=== PATIENT | female | born 1975 | race Caucasian/White ===

== ENCOUNTER 2019-03-07 12:55 | Emergency (ER) | payer MEDICAID, SELFPAY ==
[2019-03-07 12:57] VITALS: BP 139/78; PULSE 95; RESP 16; TEMP 36.3; O2SAT 97; BMI 42.9
[2019-03-07 14:55] LABS: Mucous, Urine 0 SEEN /hpf (<or=2+)
[2019-03-07 14:56] LABS: Color, Urine Yellow (Yellow); Glucose, Dipstick Normal (Normal); Ketone-Dipstick Negative (Negative); Leukocyte Esterase-Dipstick 100 /ul (Negative); Nitrite-Dipstick Negative (Negative); Occult Blood-Urine 10 /ul (Negative); Protein-Dipstick Negative (Negative); Specific Gravity, Urine 1.025 (1.002-1.030); Urine Bilirubin Dipstick Negative (Negative); Urine Clarity Sl. Cloudy (Clear); Urine Urobilinogen Normal (Normal)
[2019-03-07 15:05] LABS: Bacteria 4+ /hpf (None Seen); Red Blood Cells-Urine 0-5 SEEN /hpf (0-5); Squamous Epithelial Cells - UA 0-5 SEEN /hpf (5-10); White Blood Cells 10-25 SEEN /hpf (0-5)
[2019-03-07 15:07] VITALS: BP 128/79; PULSE 78; RESP 18; O2SAT 99
--- NOTE | 2019-03-07 15:24 | ED.DCSUM_ITS ---
- ER Visit Summary Date of Service: 03/07/19 Chief Complaint: Bladder prolapse History of Present Illness: The patient is a 43 F who presents for bladder prolapse. She had a prior hysterectomy. She has noted a mass pretreating from her vagina. It is reducible. Worse when she ambulates. No other symptoms. Physical Examination: Afebrile and vital signs unremarkable. Exam was chaperoned by Ellie ADHIKARI. There was no apparent prolapse, discharge, bleeding. Normal bimanual exam. Test Results: Urinalysis showed signs of infection. Emergency Department Course and Treatment: Patient is not currently having a prolapse. I believe she is appropriate for outpatient follow-up. She is trying to follow-up with her urologist. I will also refer to [facility] if she has difficulty following up. Patient was treated with Macrobid. Return for any new or worsening issues. Return if unable to reduce her bladder. Treatment Plan: As above Disposition: Discharge Impression: 1. UTI cystitis 2. Bladder prolapse This note was generated with [employer] dictation software. It may contain incorrect words, spelling, and punctuation that were not noted in review of the chart prior to signing ED Disposition - Plan for ED Patient: Referrals: Fred Encarnacion,Out of [Primary Care Provider] -
--- NOTE | 2019-03-07 15:25 | ED.DEP ---
ED Disposition - Plan for ED Patient: Instructions: Understanding Urinary Tract Infections (UTIs) Prescriptions: Nitrofurantoin Macrocrystals [Macrobid] 100 mg PO Q12 #10 cap Prescription Printed Referrals: Zaina Wick MD [STAFF PHYSICIAN] -
[2019-03-07] MEDS: Nitrofurantoin Macrocrystals 100 MG Capsule PO (15:37)
--- NOTE | 2019-03-07 15:39 | ED.RN ---
DISCHARGE INSTRUCTIONS GIVEN TO AND REVIEWED WITH PATIENT, PATIENT DENIES QUESTIONS OR CONCERNS AND VOICES UNDERSTANDING OF DISCHARGE INSTRUCTIONS. PT AMBULATES OUT OF ROOM WITHOUT DIFFICULTY.
== END 2019-03-07 15:40 | disposition home or self-care (01) ==
LOC: ED 14:18
PROVIDERS: Emergency Provider Emergency Medicine
DX: N39.0 Urinary tract infection, site not specified (principal); N81.10 Cystocele, unspecified; M19.90 Unspecified osteoarthritis, unspecified site; Z90.710 Acquired absence of both cervix and uterus; Z72.0 Tobacco use
CPT/HCPCS: 81001; 99283

== ENCOUNTER → 2019-06-07 12:18 | Outpatient (CLI) | payer MEDICAID, SELFPAY ==
--- NOTE | 2019-06-07 12:31 | BI_ITS ---
MAMMOGRAPHY - BILATERAL SCREENING REASON FOR EXAM: Female, 43 years old. Routine annual screening examination. PERTINENT HISTORY: Sister with breast cancer. Mother with breast cancer. TECHNIQUE: Digital bilateral breast wilmer (3D mammographic acquisition) in the CC and MLO projections. 2-D mediolateral oblique (MLO) and craniocaudad (CC) views of both breasts were obtained. CAD: Full Field Digital Mammography with Computer Added Detection was performed. COMPARISON: No comparison mammograms available at this time. If any prior films become available, an addendum to this report can be generated. FINDINGS: Breast Composition: There are scattered areas of fibroglandular density. There are no dominant masses or suspicious calcifications. Benign appearing bilateral axillary lymph nodes. No other significant abnormalities are identified. BI/SCREEN MAMM (CAD) W/WILMER BILAT IMPRESSION: Negative screening mammogram. Yearly followup mammogram recommended. (A) ASSESSMENT CATEGORY: BIRADS Category 2: Benign. A letter regarding these results will be sent to the patient by the facility within 30 days. Approximately 10% of breast cancers are not detected by mammography. A normal mammogram should not delay biopsy of a clinically suspicious abnormality. [id number] Electronically Signed: Jourdan Odell, at 12:47 EST , Service support ,
== END ==
PROVIDERS: Referring Provider Internal Medicine; Visit Provider Internal Medicine
DX: Z12.31 Encounter for screening mammogram for malignant neoplasm of breast (principal)
CPT/HCPCS: 77063; 77067

== ENCOUNTER 2019-09-26 11:55 | Emergency (ER) | payer SELFPAY ==
[2019-09-26 11:56] VITALS: BP 137/78; PULSE 86; RESP 16; TEMP 36.6; O2SAT 96; BMI 46.7
--- NOTE | 2019-09-26 12:07 | RAD_ITS ---
STUDY: X-RAY CHEST REASON FOR EXAM: Female, 43 years old. SORT OF BREATH, CHEST HEAVINESS, SWELLING IN HANDS AND FEET TECHNIQUE: PA and lateral views of the chest. COMPARISON: None. FINDINGS: EKG electrodes are seen. I suspect prior esophagectomy with gastric pull-through procedure. Clinical correlation is recommended. Scattered calcified granulomas. There is no demonstrated pleural abnormality. Normal size heart. Normal mediastinum and cheryl. Normal visualized pulmonary arteries. Normal visualized aortic arch and descending thoracic aorta. There are degenerative changes of the visualized thoracic spine. Normal visualized ribs, clavicles, and shoulders. There is no demonstrated abnormality of the visualized soft tissue structures of the upper abdomen. RAD/Chest PA and Lateral IMPRESSION: Findings suggestive of a gastric pull-through procedure and esophagectomy. The lungs are clear. Electronically Signed: Jourdan Odell, at 13:12 EST , Service support ,
--- NOTE | 2019-09-26 12:07 | EKG12_ITS ---
Test Reason : Blood Pressure : / mmHG Vent. Rate : 078 BPM Atrial Rate : 078 BPM P-R Int : 146 ms QRS Dur : 078 ms QT Int : 386 ms P-R-T Axes : 034 026 014 degrees QTc Int : 440 ms Normal sinus rhythm Normal ECG Confirmed by FRENCH GOODSON, CHARLETTE ([id number]), avid editor NICHOLAS BRUSH ([id number]) on 10/01/2019 2:26:04 PM Referred By: PREM Confirmed By:MITALI BRASWELL MD
--- NOTE | 2019-09-26 12:12 | ED.DCSUM_ITS ---
History of Present Illness Chief Complaint: Shortness of Breath Informant: Patient Onset: Today Context: Gradual Onset Timing: Continuous Current Severity: Moderate Maximum Severity: Moderate Narrative: The patient is a 43-year-old female with no significant medical history that recent quit smoking presents to the emergency department with chest heaviness and dyspnea. Patient notes she woke this morning and just had tightness across her chest. She states that she felt more short of breath. She denies any fevers or chills. She denies any cough. The pain does not radiate but did seem to be made worse with exertion. She also noticed that her legs were more swollen than normal. She states at the end of the day, she will have swelling, but seems like it is worse. She has no history of heart failure. There is no family history of heart disease. Prior similar symptoms: No Recent Illness/Hospitalization: No Past Medical History - Allergies and Home Meds Allergies/Adverse Reactions: Allergies Sulfa (Sulfonamide Antibiotics) Allergy (Verified 09/26/19 11:58) Clarence Primary Care Physician: [facility] Doctor,Out of [NON-STAFF] - Prior records reviewed: Yes Surgical History: noncontributory Smoking Status: Current every day smoker Review of Systems General: Denies: Chills, Fever, Sweats Eyes: Denies: Visual changes - bilaterally, Diplopia ENT: Denies: Rhinorrhea, Sore throat Cardiovascular: Reports: Chest pain. Denies: Palpitations Respiratory: Reports: Dyspnea. Denies: Cough, Dyspnea on exertion Gastrointestinal: Denies: Abdominal pain, Nausea, Vomiting, Diarrhea, Melena, Hematochezia Genitourinary: Denies: Dysuria, Hematuria, Frequency Musculoskeletal: Denies: Back pain, Extremity Pain Skin: Denies: Rash, Wounds Neurological: Denies: Headache, Weakness, Numbness Physical Exam Vital Signs/Narrative: Vital Signs Temp Pulse Resp BP Pulse Ox 09/26/19 11:56 98 F 86 16 137/78 H 96 Inital Vital Signs reviewed: Yes General: Well nourished, Well developed, No Acute Distress Head: Normocephalic, Atraumatic Eyes: Perrl, EOMI ENT: Moist mucous membranes, No rhinorrhea Neck: Supple, Nontender Cardiovascular: Regular rate, Regular rhythm, No murmurs Respiratory: No distress, CTA bilaterally, Chest nontender Abdomen: Soft, Nontender, Nondistended, Normal bowel sounds Back: Nontender, Normal Inspection Extremities: Nontender, No edema Skin: Normal color, No rash Neurological: Alert, Oriented x3, Cranial nerves II-XII grossly intact, Normal Strength, Normal Sensation Psychological: Normal affect, Normal Mood Diagnostic/Tx/Re-eval Chest X-Ray - ED: 2 View, Normal, Heart, Lungs, Mediastinum Clinical Impression(s) from Imaging Studies Chest X-Ray 09/26/19 12:07 IMPRESSION: Findings suggestive of a gastric pull-through procedure and esophagectomy. The lungs are clear. Electronically Signed: Jourdan Odell, at 13:12 EST , Service support , Abnormal Lab Results 09/26/19 09/26/19 09/26/19 12:30 12:30 12:30 WBC 8.7 RBC 4.28 Hgb 13.6 Hct 41.0 MCV 95.8 MCH 31.8 MCHC 33.2 RDW Std Deviation 42.9 RDW Coeff of Marisel 12.4 Plt Count 253 MPV 12.0 Immature Gran % (Auto) 0.500 Neut % (Auto) 52.7 Lymph % (Auto) 31.2 Knott % (Auto) 9.1 Eos % (Auto) 5.4 H Baso % (Auto) 1.1 H Absolute Neuts (auto) 4.6 Absolute Lymphs (auto) 2.72 Nucleated RBC % 0 D-Dimer Quant (PE/DVT) 0.32 Sodium 142 Potassium 4.3 Chloride 113 H Carbon Dioxide 23.0 Anion Gap 6 BUN 12 Creatinine 0.93 Estim Creat Clear Calc 65.97 Est GFR (MDRD) Af Amer 83 Est GFR (MDRD) Non-Af 69 BUN/Creatinine Ratio 12.9 Glucose 94 Calcium 8.7 Total Bilirubin 0.30 AST 20 ALT 40 Alkaline Phosphatase 97 Troponin I < 0.015 B-Natriuretic Peptide Total Protein 6.9 Albumin 3.3 Globulin 3.6 Albumin/Globulin Ratio 0.9 09/26/19 12:30 WBC RBC Hgb Hct MCV MCH MCHC RDW Std Deviation RDW Coeff of Marisel Plt Count MPV Immature Gran % (Auto) Neut % (Auto) Lymph % (Auto) Knott % (Auto) Eos % (Auto) Baso % (Auto) Absolute Neuts (auto) Absolute Lymphs (auto) Nucleated RBC % D-Dimer Quant (PE/DVT) Sodium Potassium Chloride Carbon Dioxide Anion Gap BUN Creatinine Estim Creat Clear Calc Est GFR (MDRD) Af Amer Est GFR (MDRD) Non-Af BUN/Creatinine Ratio Glucose Calcium Total Bilirubin AST ALT Alkaline Phosphatase Troponin I B-Natriuretic Peptide 63.6 Total Protein Albumin Globulin Albumin/Globulin Ratio - Rhythm Strip Rhythm Strip: Sinus Rhythm Rate: 80 Ectopy: None - Medical Decision Making The patient presents with chest tightness and shortness of breath. Her symptoms do seem more primarily respiratory. She was given a nebulized breathing treatment. Chest x-ray was obtained which shows no focal infiltrative process. There was question about esophagectomy, but the patient does have rather significant achalasia. EKG was sinus rhythm without acute ischemic change. Screening labs including cardiac enzymes and d-dimer were negative. The patient is feeling improved. At this point, I do feel that she would benefit from a burst of prednisone and an inhaler. I do not see a clear indication for antibiotics. She is comfortable with this plan of care will be discharged home. Impression 1. Bronchitis with bronchospasm ED Disposition - Plan for ED Patient: Instructions: BRONCHITIS, No Antibiotic (Adult) Prescriptions: Prednisone [Deltasone] 40 mg PO DAILY #10 tab Prescription Printed Albuterol Inhaler [Ventolin Hfa] 2 puff INHALATION Q4H PRN PRN #1 inhaler PRN Reason: Wheezing Prescription Printed Referrals: [facility] Doctor,Out of [NON-STAFF] -
[2019-09-26 12:20] VITALS: PULSE 75; RESP 18
[2019-09-26] MEDS: Ipratropium/Albuterol Sulfate 3 ML AMPUL.NEB INHALATION (12:20)
[2019-09-26 12:43] LABS: Absolute Lymphocyte Count 2.72 X10^3/uL (0.83-4.51); Absolute Neutrophil Count 4.6 X10^3/uL (2.0-7.7); Basophil% 1.1 % (0-1); Eosinophil# 0.47 X10^3/uL; Eosinophils% 5.4 % (0-5); Hemoglobin 13.6 g/dL (12.0-15.0); Lymphocyte # 2.72 X10^3/ul (4.0); Lymphocyte % 31.2 % (19-41); Mean Corp Hgb Conc 33.2 g/dL (32-36); Mean Corpuscular Hgb 31.8 pg (27.0-32.0); Mean Corpuscular Volume 95.8 fL (81-99); Monocyte# 0.79 X10^3/uL; Monocyte% 9.1 % (0-10); NRBC Flagged by Analyzer 0 % (0-5); Neutrophil % 52.7 % (47-70); Platelet Count 253 K/mm3 (150-450); RBC Distribution Width CV 12.4 % (11.6-14.6); RBC Distribution Width SD 42.9 fl (35.1-43.9); Red Blood Count 4.28 M/mm3 (4.2-5.4); White Blood Count 8.7 K/mm3 (4.4-11.0)
[2019-09-26 13:02] LABS: ALB/GLOB Ratio 0.9 RATIO (0.9-2.4); AST(SGOT) 20 U/L (15-37); Alanine Aminotransfer ALT/SGPT 40 U/L (13-56); Albumin, Serum 3.3 g/dL (3.2-5.0); Alkaline Phosphatase 97 U/L (45-117); Anion Gap 6 (5-15); BUN 12 mg/dL (7-18); BUN/Creat Ratio 12.9 RATIO (10-20); Calcium,Total 8.7 mg/dL (8.5-10.1); Chloride 113 mmol/L (98-107); Creatinine, Serum 0.93 mg/dL (0.55-1.02); EST Glomerular Filtration Rate 69 mL/min (>60); Est Glom Filt Rate - Afr Amer 83 mL/min (>60); Estimated Creatinine Clearance 65.97 ml/min; Globulin 3.6 g/dL (2.2-4.2); Glucose 94 mg/dL (74-106); Potassium 4.3 mmol/L (3.5-5.1); Protein, Total 6.9 g/dL (6.4-8.2); Sodium Level 142 mmol/L (136-145)
[2019-09-26 13:04] LABS: D-Dimer Quantitative (DVT/PE) 0.32 FEU/ug/m (0.27-0.49)
[2019-09-26 13:15] LABS: BNP,B-Type NATRIURETIC PEPTIDE 63.6 pg/mL (0-100)
[2019-09-26 13:56] VITALS: PULSE 89; RESP 18; O2SAT 97
== END 2019-09-26 13:57 | disposition home or self-care (01) ==
LOC: ED 12:55
PROVIDERS: Emergency Provider Emergency Medicine
DX: J40 Bronchitis, not specified as acute or chronic (principal); J98.01 Acute bronchospasm; Z87.891 Personal history of nicotine dependence
CPT/HCPCS: 71046; 80053; 83880; 84484; 85025; 85379; 93005; 94640; 99283; A4216

== ENCOUNTER 2021-04-12 16:27 | Emergency (ER) | payer SELFPAY ==
[2021-04-12 16:28] VITALS: BP 111/76; PULSE 95; RESP 18; TEMP 36.4; O2SAT 97; BMI 45.6
--- NOTE | 2021-04-12 17:16 | ED.VIS.LOWEX ---
HPI History of Present Illness Chief Complaint: Lower Extremity Injury Narrative Narrative: Patient presenting with nontraumatic right foot pain. She states in the arch of her right foot and into the medial aspect of the right heel. She denies any injury. Patient states that she worked last night and after work it started to hurt. She has a history of plantar fasciitis. She states that last time she had this issue this took a couple of days off and it got better on its own. She denies any direct trauma. She is ambulatory. PFSH PFSH Home Medications albuterol sulfate 2 puff INHALATION Q4H PRN PRN #1 inhaler 09/26/19 [Rx Last Taken Unknown] prednisone 40 mg PO DAILY #10 tab 09/26/19 [Rx Last Taken Unknown] Allergy/AdvReac Type Severity Reaction Status Date / Time Sulfa (Sulfonamide Allergy Hives Verified 04/12/21 16:27 Antibiotics) Social History Smoking Status: Former smoker ROS ROS ED Constitutional Constitutional ED: Denies chills or fever(s) Eyes Eyes: Denies blurry vision or diplopia ENT ENT ED: Denies rhinorrhea or sore throat Cardiovascular Cardiovascular: Denies palpitations or racing heartbeat Respiratory/Chest Respiratory/Chest: Denies cough or dyspnea Gastrointestinal Gastrointestinal: Denies abdominal pain, nausea or vomiting Genitourinary Genitourinary ED: Denies dysuria or hematuria Musculoskeletal Musculoskeletal: Reports other Details: Right foot pain Integumentary Denies Abrasions or rash Neurologic Neurologic: Denies headache(s) or paresthesias EXAM Physical Exam Const Vital Signs: 04/12/21 16:28 Temperature 97.5 F L Temperature Source Temporal Pulse Rate 95 Respiratory Rate 18 Blood Pressure 111/76 Blood Pressure Mean 87 Pulse Ox 97 Oxygen Delivery Method Room Air Positive well nourished General Appearance ED: NAD HEENT Reports moist mucous membranes normocephalic and atraumatic Resp normal respiratory effort Cardio regular rate and regular rhythm Extremity Extremity Narrative: Tenderness to palpation on right arch. There is also some pain is to palpation over the medial aspect of the right heel. No bony tenderness. Right foot neurovascular intact brisk cap refill to all 5 toes. Neuro oriented x3 Sensorium / Orientation: alert MDM MDM MDM Narrative Medical decision making narrative: Patient symptoms most consistent with plantar fasciitis and she has had this before. She is offered Naprosyn but states she will take ibuprofen at home. I counseled her that she needs a firm shoe with arch support. I do not believe patient needs an x-ray of her foot. Patient is stable for discharge at this time. Impression: 1. Plantar fasciitis Discharge Plan Triage Chief Complaint: Lower Extremity Injury ED Provider: Ion Miller Dx/Rx/DC Orders Instructions: ED Plantar Fasciitis Prescriptions: No Action prednisone 20 MG tablet 40 mg PO DAILY Qty: 10 RF: 0 albuterol sulfate 1 INHALER inhaler 2 puff inhalation Q4H PRN PRN (Reason: Wheezing) Qty: 1 RF: 0 Primary Care Provider: Care Physician,No Primary Referrals: Suzie Heredia DPM [STAFF PHYSICIAN] - As Needed Care Physician,No Primary [Primary Care Provider] - Disposition Disposition: Home, Self Care
== END 2021-04-12 17:55 | disposition home or self-care (01) ==
LOC: ED 17:41
PROVIDERS: Emergency Provider Student in an Organized Health Care Education/Training Program
DX: M72.2 Plantar fascial fibromatosis (principal); Z87.891 Personal history of nicotine dependence
CPT/HCPCS: 99282

== ENCOUNTER 2021-09-12 14:50 | Emergency (ER) | payer MEDICAID, SELFPAY ==
[2021-09-12 14:51] VITALS: BP 156/86; PULSE 96; RESP 18; TEMP 36.7; O2SAT 98; BMI 44.6
--- NOTE | 2021-09-12 15:03 | EX.ED.DYSGE1 ---
HPI History of Present Illness Chief Complaint: Abscess Informant: patient Onset/Context/Timing Onset: Days (2) Context: Gradual Onset Timing: Continuous Quality: Stinging Location: Left lower abdomen Worsened by: Movement Relieved by: Laying on right side Narrative Narrative: Patient presents with abscess to her left lower abdomen that has been getting worse for the past couple days. Patient states it began opening and draining yesterday. Patient states the drainage is purulent in nature. Patient describes her pain as a stinging sensation. Patient states it is over the left lower abdomen. Patient states it is worse whenever she moves. Patient states it is better when she lays on her right side. Patient denies any fevers or chills. Patient denies any nausea or vomiting. [facility] Medical History (Updated 09/12/21 @ 15:[address] 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 Jose Davis DO) History of hysterectomy Hx of cholecystectomy Hx of laparoscopy Social History Smoking Status: Former smoker ROS ROS ED Constitutional Constitutional ED: Denies chills or fever(s) Eyes Eyes: Denies blurry vision or change in vision ENT ENT ED: Denies rhinorrhea or sore throat Cardiovascular Cardiovascular: Denies chest pain or palpitations Respiratory/Chest Respiratory/Chest: Denies cough or dyspnea Gastrointestinal Gastrointestinal: Denies nausea or vomiting Genitourinary Genitourinary ED: Denies dysuria or hematuria Musculoskeletal Musculoskeletal: Denies back pain or neck pain Integumentary Reports abscess; Denies rash Neurologic Neurologic: Denies headache(s) or weakness Allergic/Immunologic Allergic/Immunologic ED: Denies mouth swelling or urticaria EXAM Physical Exam Const Vital Signs: 09/12/21 14:51 Temperature 98.0 F Temperature Source Temporal Pulse Rate 96 Respiratory Rate 18 Blood Pressure 156/86 H Blood Pressure Mean 109 Pulse Ox 98 Oxygen Delivery Method Room Air Positive well nourished, well developed and obese General Appearance ED: well developed Nutritional Appearance: obese HEENT Reports moist mucous membranes Neck supple and no JVD Resp normal respiratory effort and clear to auscultation bilaterally Cardio regular rate and regular rhythm GI normal to inspection, nondistended, normoactive bowel sounds Palpation: soft Neuro oriented x3, CN's II-XII intact bilaterally and no sensory deficits noted Sensorium / Orientation: alert Motor Exam: strength 5/5 throughout Psych mental status grossly normal Skin Skin Narrative: There is a open area over the left lower abdomen. There is some purulent drainage coming from the area. There is erythema and warmth over the lower abdomen. There is some mild induration around the wound. There is no fluctuance. MDM MDM MDM Narrative Medical decision making narrative: The wound was cleaned and dressed. Since the abscess is open and draining, I do not feel incision and drainage is necessary at this time. Patient was instructed to keep the wound clean. Patient was given prescription for Keflex. Patient was given her first dose here. Patient was instructed to follow-up with a primary care physician in 5 to 7 days. Patient understood and was agreeable with the plan. All questions were answered. Discharge Plan Triage Chief Complaint: Abscess ED Provider: Jose Davis Dx/Rx/DC Orders Clinical Impression: Abscess of abdominal wall Instructions: ED Abscess Antibiotic Treatment Only, ED Cellulitis Prescriptions: New cephalexin [cephalexin] 500 MG capsule 500 mg PO Q6 Qty: 40 RF: 0 No Action prednisone 20 MG tablet 40 mg PO DAILY Qty: 10 RF: 0 albuterol sulfate 1 INHALER inhaler 2 puff inhalation Q4H PRN PRN (Reason: Wheezing) Qty: 1 RF: 0 Primary Care Provider: Care Physician,No Primary Referrals: Kelly Swain MD [STAFF PHYSICIAN] - 5-7 Days Care Physician,No Primary [Primary Care Provider] - Disposition Disposition: Home, Self Care
[2021-09-12] MEDS: Cephalexin 500 MG Capsule PO (15:22)
== END 2021-09-12 23:59 | disposition home or self-care (01) ==
PROVIDERS: Emergency Provider Emergency Medicine; Visit Provider Emergency Medicine
DX: L02.211 Cutaneous abscess of abdominal wall (principal); Z68.41 Body mass index [BMI] 40.0-44.9, adult; Z87.891 Personal history of nicotine dependence; E66.9 Obesity, unspecified
CPT/HCPCS: 99282

== ENCOUNTER → 2021-12-25 13:41 | Outpatient (CLI) | payer MEDICAID, SELFPAY ==
[2021-12-25 15:20] LABS: Absolute Lymphocyte Count 1.97 X10^3/uL (0.83-4.51); Absolute Neutrophil Count 3.7 X10^3/uL (2.0-7.7); Basophil# 0.09 X10^3/uL; Basophil% 1.4 % (0-1); Eosinophil# 0.56 X10^3/uL; Eosinophils% 8.4 % (0-5); Hematocrit 43.2 % (37-47); Hemoglobin 14.1 g/dL (12.0-15.0); Lymphocyte # 1.97 X10^3/ul (0.83-4.51); Lymphocyte % 29.6 % (19-41); Mean Corp Hgb Conc 32.6 g/dL (32-36); Mean Corpuscular Volume 94.9 fL (81-99); Mean Platelet Vol. 12.1 fl (6.2-12.0); Monocyte# 0.35 X10^3/uL; Monocyte% 5.3 % (0-10); NRBC Flagged by Analyzer 0 % (0-5); Neutrophil # 3.67 X10^3/uL (2.7-7.7); Platelet Count 294 K/mm3 (150-450); RBC Distribution Width SD 42.5 fl (35.1-43.9); Red Blood Count 4.55 M/mm3 (4.2-5.4); White Blood Count 6.7 K/mm3 (4.4-11.0)
[2021-12-25 15:47] LABS: AST(SGOT) 31 U/L (15-37); Alanine Aminotransfer ALT/SGPT 51 U/L (13-56); Albumin, Serum 3.8 g/dL (3.2-5.0); Alkaline Phosphatase 104 U/L (45-117); Anion Gap 5 (5-15); BUN 13 mg/dL (7-18); Bilirubin, Direct 0.09 mg/dL (0.00-0.30); Calcium,Total 9.3 mg/dL (8.5-10.1); Chloride 107 mmol/L (98-107); Creatinine, Serum 1.18 mg/dL (0.55-1.02); EST Glomerular Filtration Rate 52 mL/min (>60); Est Glom Filt Rate - Afr Amer 63 mL/min (>60); Globulin 3.7 g/dL (2.2-4.2); Glucose 146 mg/dL (74-106); Potassium 4.2 mmol/L (3.5-5.1); Protein, Total 7.5 g/dL (6.4-8.2); Sodium Level 138 mmol/L (136-145)
[2021-12-28 10:53] LABS: HIV - WCH Non-Reactive (Nonreactive); Hepatitis B Surface Antibody Reactive; Hepatitis B Surface Antigen Non-Reactive (Nonreactive); Hepatitis C Antibody Non-Reactive (Nonreactive)
[2021-12-29 19:07] LABS: QNTFERON TB Mitogen Value > 10.00 IU/mL (.); QNTFERON TB Nil Value 0.04 IU/mL (.); QNTFERON TB1+ Ag Value 0.02 IU/mL (.); QNTFERON TB2+ Ag Value 0.02 IU/mL (.)
[2021-12-30 10:29] LABS: Hepatitis B Core Ab Total Negative (Negative); QNTIFERON TB Positive Criteria Negative (Negative)
== END ==
PROVIDERS: PCP Internal Medicine
DX: L40.0 Psoriasis vulgaris (principal); Z79.899 Other long term (current) drug therapy; M12.9 Arthropathy, unspecified
CPT/HCPCS: 36415; 80048; 80076; 85025; 86480; 86703; 86704; 86706; 86803; 87340

== ENCOUNTER → 2022-02-15 | Outpatient (CLI) | payer MEDICAID, SELFPAY ==
[2022-02-15 12:27] LABS: Vitamin D,25 Hydroxy 19.1 ng/mL
[2022-02-15 12:35] LABS: ALB/GLOB Ratio 0.9 RATIO (0.9-2.4); AST(SGOT) 32 U/L (15-37); Alanine Aminotransfer ALT/SGPT 50 U/L (13-56); Albumin, Serum 3.7 g/dL (3.2-5.0); Alkaline Phosphatase 102 U/L (45-117); Anion Gap 6 (5-15); BUN 12 mg/dL (7-18); BUN/Creat Ratio 10.4 RATIO (10-20); Calcium,Total 9.3 mg/dL (8.5-10.1); Chloride 106 mmol/L (98-107); Cholesterol 206 mg/dL (200); Creatinine, Serum 1.15 mg/dL (0.55-1.02); EST Glomerular Filtration Rate 54 mL/min (>60); Est Glom Filt Rate - Afr Amer 65 mL/min (>60); Globulin 3.9 g/dL (2.2-4.2); Glucose 111 mg/dL (74-106); High Density Lipoprotein 35 mg/dL; Potassium 4.2 mmol/L (3.5-5.1); Protein, Total 7.6 g/dL (6.4-8.2); Sodium Level 137 mmol/L (136-145); Thyroid Stim Hormone (TSH) 2.23 uIU/mL (0.358-3.74); Triglycerides 226 mg/dL; Very Low Density Lipoprotein 45 mg/dL (5-40)
== END | disposition home or self-care (01) ==
LOC: BIMLAB 09:00
PROVIDERS: PCP Internal Medicine; Referring Provider Internal Medicine; Visit Provider Internal Medicine
DX: E66.01 Morbid (severe) obesity due to excess calories (principal); Z68.43 Body mass index [BMI] 50.0-59.9, adult; Z13.6 Encounter for screening for cardiovascular disorders; E55.9 Vitamin D deficiency, unspecified
CPT/HCPCS: 36415; 80053; 80061; 82306; 84443

== ENCOUNTER 2022-02-16 12:59 | Outpatient (RCR) | payer MEDICAID, SELFPAY | END 2022-03-07 23:59 | LOC: NS 12:59 | PROVIDERS: PCP Internal Medicine; Referring Provider Internal Medicine; Visit Provider Internal Medicine | DX: Z71.3 Dietary counseling and surveillance (principal); E66.01 Morbid (severe) obesity due to excess calories; Z68.43 Body mass index [BMI] 50.0-59.9, adult | CPT/HCPCS: 97802 ==

== ENCOUNTER → 2022-02-22 | Outpatient (CLI) | payer MEDICAID, SELFPAY ==
--- NOTE | 2022-02-22 15:54 | BI_ITS ---
MAMMOGRAPHY - BILATERAL SCREENING REASON FOR EXAM: Female, 46 years old. Routine annual screening examination. PERTINENT HISTORY: Sister with breast cancer. Mother with breast cancer. TECHNIQUE: Digital bilateral breast wilmer (3D mammographic acquisition) in the CC and MLO projections. 2-D mediolateral oblique (MLO) and craniocaudad (CC) views of both breasts were obtained. CAD: Full Field Digital Mammography with Computer Added Detection was performed. COMPARISON: Comparison is made with prior study dated 06/07/2019. FINDINGS: Breast Composition: There are scattered areas of fibroglandular density. There are no dominant masses or suspicious calcifications. Stable small benign-appearing bilateral axillary lymph nodes. No other significant abnormalities are identified. There has been no significant change since the prior study. BI/SCRN MAMM (CAD)W/WILMER BILAT IMPRESSION: Stable bilateral screening mammogram. Yearly follow-up mammogram recommended. (A) ASSESSMENT CATEGORY: BIRADS Category 2: Benign. A letter regarding these results will be sent to the patient by the facility within 30 days. Approximately 10% of breast cancers are not detected by mammography. A normal mammogram should not delay biopsy of a clinically suspicious abnormality. [id number] Electronically Signed: Jourdan Odell MD at 8:32 EDT ,
== END | disposition home or self-care (01) ==
LOC: OPBI 15:53
PROVIDERS: PCP Internal Medicine; Visit Provider Internal Medicine
DX: Z12.31 Encounter for screening mammogram for malignant neoplasm of breast (principal)
CPT/HCPCS: 77063; 77067

== ENCOUNTER 2022-06-29 07:19 | Day surgery (SDC) | payer MEDICAID, SELFPAY ==
[2022-06-29] VITALS (7 sets, daily range): BP systolic 110–143; BP diastolic 68–93; PULSE 86–95; RESP 16; TEMP 36.3–36.6; O2SAT 93–98; BMI 49.6
[2022-06-29] MEDS: Lactated Ringers 1,000 ML 15 ML IV (07:52)
--- NOTE | 2022-06-29 08:29 | H&P.OPEN ---
HPI - General HPI Narrative ALEJANDRA SUMNER, is a 46 F who presents for screening colonoscopy. Patient has never had a screening colonoscopy in the past. She denies any abdominal pain or blood in the stool. No family history of colon cancer. [facility] Medical History (Updated 06/29/22 @ 08:[address] Robel Slaughter MD) Achalasia Arthritis Arthritis Environmental allergies Gallstones H/O emotional problems Hives Hx: UTI (urinary tract infection) Migraines Physical exam, pre-employment Post-menopausal Psoriasis Shortness of breath on exertion Smoker Vitamin deficiency Wears glasses Home Medications clobetasol 0.05 % topical ointment 1 applic topical QHS PRN PSORIASIS 02/04/22 [History Last Taken Unknown] ixekizumab 80 mg/mL subcutaneous auto-injector (Taltz Autoinjector) 80 mg subcut Q4W PSORIASIS 06/14/22 [History Last Taken Unknown] Allergy/AdvReac Type Severity Reaction Status Date / Time cat dander Allergy Intermediate Swelling Verified 06/29/22 07:42 cephalexin Allergy Hives Verified 06/29/22 07:42 Sulfa (Sulfonamide Allergy Hives Verified 06/29/22 07:42 Antibiotics) Family History Mother Breast cancer COPD (chronic obstructive pulmonary disease) Sister Breast cancer Brother Hypertension Diabetes Grandmother Diabetes Surgical History History of hysterectomy History of surgical procedure Hx of cholecystectomy Hx of laparoscopy Social History household members: family current occupational status: employed 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 Smoking Status: Current some day smoker tobacco type: cigarettes Electronic Cigarette Use: not used alcohol intake: current alcohol intake frequency: holidays/special occasions only substance use type: does not use do you feel safe at home: Yes Past Medical/Surgical History Planned Operation Planned Operative Procedure/s: COLONOSCOPY Previous Hospitalizations/Surgeries HX Hospitalizations: No Any Problems With Anesthesia: No You/Your Family Experience Fever (Hyperthermia) With Anes: No Cholinesterase deficiency: No Cardiovascular Hx of Irregular Heartbeat and/or Afib: No Hx Heart Attack: No Hx Congestive Heart Failure: No Hx Hypertension: No Hx Internal Defibrillator: No Hx Pacemaker: No Hx Cardiac Catheterization: No Respiratory Hx Chronic Obstructive Pulmonary Disease (COPD): No Hx Asthma: No Hx Emphysema: No Hx Sleep Apnea: No Hx Respiratory Tract Infection/Cold (presently): No Do You Snore Loudly (louder than talking or can be heard): No Do You Often Feel Tired/ Fatigued/ Sleepy Dring Daytime?: No Has Anyone Observed You Stop Breathing During Sleep?: No Result (for STOP score): Negative Smoking Status: Current some day smoker Gastrointestinal Hx Gastroesophageal Reflux: Yes Controlled With Meds: Yes Hx Ulcer: No Neurological Hx Seizures: No Hx Transient Ischemic Attacks (TIA): No Hx Head/Neck Injury: Yes Hx Headaches: No Hx Back Injury/Pain: Yes Does patient have nerve stimulator: No Blood Disorder Hx High Cholesterol: No Hx Hepatitis: No Hx Cirrhosis: No Endocrine Hx Diabetes: No Psycho/Social Hx Depression: Yes Hx Dementia: No Miscellaneous Hx Cancer: No Recent Exposure to Contagious Disease: No Allergies cat dander Allergy (Intermediate, Verified 06/29/22 07:42) Swelling cephalexin Allergy (Verified 06/29/22 07:42) Hives Sulfa (Sulfonamide Antibiotics) Allergy (Verified 06/29/22 07:42) Hives Discharge Is Pt Admitted From a Group Home, or a Jail: No After D/C, Where Do you Plan to Go: Return Home Vital Signs Vital Signs Vital Signs: 06/29/22 07:46 06/29/22 07:46 Temperature 97.6 F L Temperature Source Temporal Pulse Rate 95 Respiratory Rate 16 Respiratory Pattern Normal Blood Pressure 110/68 Blood Pressure Mean 82 Blood Pressure Source Monitor Blood Pressure Position Sitting Blood Pressure Location Left Arm Pulse Ox 98 Oxygen Delivery Method Room Air Weight Weight: 289 lb 3.944 oz Body Mass Index (BMI) 49.6 Physical Exam Const alert and oriented x3 HEENT normocephalic Eyes PERRL Resp normal respiratory effort and normal air movement Cardio regular rate and regular rhythm GI soft to palpation, non-tender and non-distended Extremity normal to inspection Assessment & Plan Assessment/Plan (1) Screen for colon cancer: PLAN: I explained endoscopy in detail to the patient. I explained the risks including but not limited to stroke or heart attack with anesthesia, perforation of the GI tract, bleeding, infection. I explained that any of these could necessitate further emergency surgery. The patient understands and all questions were answered sufficiently. The patient wishes to proceed with procedure. Robel Slaughter MD Pager: [facility] [address] [place] [address], [address] [place] [address] Office: Surgery Risks - Colonoscopy Risks Include but are not Limited To: Risks include but are not limited to: Bleeding, perforation requiring further surgery, inability to complete colonoscopy requiring barium enema.
--- NOTE | 2022-06-29 09:29 | OP.COLON_ITS ---
Patient Name: Darcy Bailey Procedure Date: 06/29/2022 8:28 AM Date of : 1975 Age: 46 Procedure: Colonoscopy Indications: Screening for colorectal malignant neoplasm Providers: Robel Slaughter MD Referring MD: Robel Slaughter MD Medicines: Monitored Anesthesia Care Patient Profile: This is a 46 year old female. Refer to note in patient chart for documentation of history and physical. Last Colonoscopy: none. The patient's first colonoscopy is today. Complications: No immediate complications. Procedure: Pre-Anesthesia Assessment: - Prior to the procedure, a History and Physical was performed, and patient medications and allergies were reviewed. The patient's tolerance of previous anesthesia was also reviewed. The risks and benefits of the procedure and the sedation options and risks were discussed with the patient. All questions were answered, and informed consent was obtained. Prior Anticoagulants: The patient has taken no previous anticoagulant or antiplatelet agents. After reviewing the risks and benefits, the patient was deemed in satisfactory condition to undergo the procedure. After I obtained informed consent, the scope was passed under direct vision. Throughout the procedure, the patient's blood pressure, pulse, and oxygen saturations were monitored continuously. The colonoscope was introduced through the anus and advanced to the cecum, identified by appendiceal orifice and ileocecal valve. The colonoscopy was performed without difficulty. The patient tolerated the procedure well. The quality of the bowel preparation was good. Scope In: 8:36:43 AM Scope Withdrawal Time 0 hours 6 minutes 11 seconds Scope Out: 8:49:54 AM Total Procedure Duration Time 0 hours 13 minutes 11 seconds Findings: The entire examined colon appeared normal on direct and retroflexion views. Impression: - The entire examined colon is normal on direct and retroflexion views. - No specimens collected. Recommendation: - Discharge patient to home. - Resume previous diet. - Continue present medications. - Repeat colonoscopy in 10 years for screening purposes. Procedure Code(s): --- Professional --- 79367, Colonoscopy, flexible; diagnostic, including collection of specimen(s) by brushing or washing, when performed (separate procedure) Diagnosis Code(s): --- Professional --- Z12.11, Encounter for screening for malignant neoplasm of colon CPT copyright 2017 [employer]. All rights reserved. The codes documented in this report are preliminary and upon hematology oncology consultant review may be revised to meet current compliance requirements. Robel Slaughter MD 06/29/2022 9:28:53 AM This report has been signed electronically. Number of Addenda: 0 Note Initiated On: 06/29/2022 8:28 AM
--- NOTE | 2022-06-29 09:30 | OP.CCLET_ITS ---
06/29/2022 Perri Dunlap Md Re : Colonoscopy procedure for Darcy Bailey Dear Germán This procedure was performed on Wednesday, June 29, 2022. My impressions and recommendations are as follows: Impressions : - The entire examined colon is normal on direct and retroflexion views. - No specimens collected. Recommendations : - Discharge patient to home. - Resume previous diet. - Continue present medications. - Repeat colonoscopy in 10 years for screening purposes. My findings are described in the full procedure note, which is enclosed. If I can be of further assistance, please feel free to contact me at Doctor phone number(s): , Work: . Sincerely, Robel Slaughter MD 06/29/2022 9:28:53 AM This report has been signed electronically.
== END 2022-06-29 09:38 | disposition home or self-care (01) ==
LOC: EN 07:20 → AC 07:21
PROVIDERS: PCP Internal Medicine; Referring Provider Internal Medicine; Visit Provider Surgery
PROC: 0DJD8ZZ Inspection of Lower Intestinal Tract, Via Natural or Artificial Opening Endoscopic (ICD-10-PCS; CPT 45378; principal; 2022-06-29 08:25)
DX: Z12.11 Encounter for screening for malignant neoplasm of colon (principal); F17.210 Nicotine dependence, cigarettes, uncomplicated; L40.9 Psoriasis, unspecified
CPT/HCPCS: 45378; J7120; J2405

== ENCOUNTER 2022-08-16 19:25 | Emergency (ER) | payer MEDICAID, SELFPAY ==
[2022-08-16 19:26] VITALS: BP 149/88; PULSE 91; RESP 18; TEMP 36.1; O2SAT 98; BMI 48.0
[2022-08-16 20:01] LABS: Bacteria 0 SEEN /hpf (None Seen); Mucous, Urine 0 SEEN /hpf (<or=2+); Red Blood Cells-Urine 0 SEEN /hpf (0-5); White Blood Cells 0 SEEN /hpf (0-5)
[2022-08-16 20:02] LABS: Color, Urine Yellow (Yellow); Glucose, Dipstick Normal (Normal); Ketone-Dipstick Negative (Negative); Leukocyte Esterase-Dipstick Negative /ul (Negative); Nitrite-Dipstick Negative (Negative); Occult Blood-Urine 10 /ul (Negative); Protein-Dipstick Negative (Negative); Urine Bilirubin Dipstick Negative (Negative); Urine Clarity Clear (Clear); Urine Urobilinogen Normal (Normal)
[2022-08-16 20:11] LABS: Internal QC Validated? YES +Cl - CLEAR BKGD; Pregnancy, Urine Negative Negative; Squamous Epithelial Cells - UA 0-5 SEEN /hpf (5-10)
[2022-08-16 21:25] VITALS: PULSE 84; RESP 18; O2SAT 96
--- NOTE | 2022-08-16 21:40 | EX.ED.DYSGE1 ---
HPI History of Present Illness Chief Complaint: Fever Narrative Narrative: 46-year-old female presents with generalized weakness for weeks. She states that she had screening blood work done by her primary care provider and it showed that her white MND was low and she is on vitamin D supplements currently. She also complains of right shoulder pain which is nontraumatic. 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 He states it hurts when she moves it. She is using Tylenol at home for pain. No paresthesias, numbness. Patient also reports that she feels generalized fatigue. She is also felt this for weeks. She has been able to get up and go to work. She wonders if maybe she needs a sleep study. She believes she snores and she might have sleep apnea. Patient denies fever, chills, body aches. She is not have nausea or vomiting. She is concerned she might have a urinary tract infection because she is having urinary symptoms. No diarrhea or constipation. PFSH PFS Medical History Achalasia Arthritis Arthritis Environmental allergies Gallstones H/O emotional problems Hives Hx: UTI (urinary tract infection) Migraines Physical exam, pre-employment Post-menopausal Psoriasis Shortness of breath on exertion Smoker Vitamin deficiency Wears glasses Home Medications clobetasol 0.05 % topical ointment 1 applic topical QHS PRN PSORIASIS 02/04/22 [History Last Taken Unknown] ixekizumab 80 mg/mL subcutaneous auto-injector (Taltz Autoinjector) 80 mg subcut Q4W PSORIASIS 06/14/22 [History Last Taken Unknown] ergocalciferol (vitamin D2) 1,250 mcg (50,000 unit) capsule 50,000 unit PO QWEEK #8 caps 07/23/22 [Rx Last Taken Unknown] naproxen 500 mg tablet (Naprosyn) 500 mg PO BID PRN pain #20 tabs 08/16/22 [Rx Last Taken Unknown] Allergy/AdvReac Type Severity Reaction Status Date / Time cat dander Allergy Intermediate Swelling Verified 07/23/22 14:09 cephalexin Allergy Hives Verified 07/23/22 14:09 Sulfa (Sulfonamide Allergy Hives Verified 07/23/22 14:09 Antibiotics) Family History Mother Breast cancer COPD (chronic obstructive pulmonary disease) Sister Breast cancer Brother Hypertension Diabetes Grandmother Diabetes Surgical History History of hysterectomy History of surgical procedure Hx of cholecystectomy Hx of laparoscopy Social History household members: family current occupational status: employed 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 Smoking Status: Current some day smoker tobacco type: cigarettes Electronic Cigarette Use: not used alcohol intake: current alcohol intake frequency: holidays/special occasions only substance use type: does not use do you feel safe at home: Yes ROS ROS ED ROS Narrative Generalized fatigue Constitutional Constitutional ED: Denies chills or fever(s) Eyes Eyes: Denies change in vision or diplopia ENT ENT ED: Denies rhinorrhea or sore throat Cardiovascular Cardiovascular: Denies chest pain or palpitations Respiratory/Chest Respiratory/Chest: Denies cough or dyspnea Gastrointestinal Gastrointestinal: Denies abdominal pain or constipation Genitourinary Genitourinary ED: Reports dysuria and urinary frequency; Denies hematuria Musculoskeletal Musculoskeletal: Reports other Details: Right shoulder pain ; Denies back pain Integumentary Denies abscess Neurologic Neurologic: Denies headache(s) or paresthesias Psychiatric Psychiatric: Denies anxiety or depression EXAM Physical Exam Const Vital Signs: 08/16/22 19:26 Temperature 97 F L Temperature Source Temporal Pulse Rate 91 Respiratory Rate 18 Blood Pressure 149/88 H Blood Pressure Mean 108 Pulse Ox 98 Oxygen Delivery Method Room Air Positive well nourished and obese Nutritional Appearance: obese HEENT Reports moist mucous membranes Eyes PERRL and EOMs intact bilaterally Chest Wall inspection of chest normal Resp normal respiratory effort and clear to auscultation bilaterally Cardio regular rate and regular rhythm GI normal to inspection, nondistended, normoactive bowel sounds Extremity Extremity Narrative: Tenderness to palpation over the right bicipital groove on the right shoulder. There is some pain elicited with abduction and flexion of the shoulder. MDM MDM MDM Narrative Medical decision making narrative: Patient presenting with shoulder pain. On exam she does have some tenderness over the bicipital groove. I do not believe she has a rotator cuff tear. I do not know that imaging is necessary and the patient does not request this. She did have concern that she possibly had a urinary tract infection but her urinalysis is negative. Unclear why she is having urinary symptoms. She does not have any abdominal pain or other GI symptoms. She states she has been generally tired for weeks and she had blood work and the only thing that showed was a vitamin D deficiency which she is being treated for. Her vital signs are stable and she is afebrile. Patient states that she works at [employer] and is tested for COVID twice a week and has not tested positive. Given that her symptoms are ongoing for weeks we did discuss possibly testing for influenza but we do not know the exact timeframe and likely would not be able to treat with Tamiflu. Overall she is well-appearing with normal vital signs I doubt this will be needed. Her lungs are clear to auscultation and she is not complaining of cough or shortness of breath. I will place her on Naprosyn. She states she can follow-up with her PCP known for physical therapy as she has done in the past for similar problem. She is given a work note for 2 days. Patient discharged home in stable condition. Impression: 1. Right shoulder sprain 2. Dysuria 3. 1 generalized fatigue Lab Data Attestation: I reviewed the patient's lab results. Labs: Laboratory Results - last 24 hr 08/16/22 19:45 Urine Color Yellow Urine Clarity Clear Urine pH 6.0 Ur Specific [place] 1.020 Urine Protein Negative Urine Glucose (UA) Normal Urine Ketones Negative Urine Occult Blood 10 H Urine Nitrite Negative Urine Bilirubin Negative Urine Urobilinogen Normal Ur Leukocyte Esterase Negative Urine RBC 0 SEEN Urine WBC 0 SEEN Ur Squamous Epith Cells 0-5 SEEN Urine Bacteria 0 SEEN Urine Mucus 0 SEEN Urine Test Negative Discharge Plan Triage Chief Complaint: Fever ED Provider: Ion Miller Dx/Rx/DC Orders Instructions: ED Shoulder Sprain, ED Weakness (Uncertain Cause) Prescriptions: New naproxen [Naprosyn] 500 mg tablet 500 mg PO BID PRN (Reason: pain) Qty: 20 0RF No Action clobetasol 0.05 % ointment 1 applic topical QHS PRN (Reason: PSORIASIS) ergocalciferol (vitamin D2) 1,250 mcg (50,000 unit) capsule 50,000 unit PO QWEEK Qty: 8 0RF Taltz Autoinjector 80 mg/mL auto-injector 80 mg subcut Q4W Label Comments: Now taking this instead of Cosentyx Primary Care Provider: Perri Dunlap Referrals: Perri Dunlap MD [Primary Care Provider] - Disposition Disposition: Home, Self Care
[2022-08-16] MEDS: Naproxen 500 MG Tablet PO (22:11)
[2022-08-16 22:13] VITALS: BP 135/86; PULSE 85; RESP 18; O2SAT 95
== END 2022-08-16 22:17 | disposition home or self-care (01) ==
PROVIDERS: Emergency Provider Student in an Organized Health Care Education/Training Program; PCP Internal Medicine; Visit Provider Student in an Organized Health Care Education/Training Program
DX: S43.401A Unspecified sprain of right shoulder joint, initial encounter (principal); R50.9 Fever, unspecified; R30.0 Dysuria; R06.02 Shortness of breath; L40.9 Psoriasis, unspecified; R53.83 Other fatigue; E55.9 Vitamin D deficiency, unspecified; F17.210 Nicotine dependence, cigarettes, uncomplicated; G43.909 Migraine, unspecified, not intractable, without status migrainosus; Z79.899 Other long term (current) drug therapy; X58.XXXA Exposure to other specified factors, initial encounter; Y92.9 Unspecified place or not applicable
CPT/HCPCS: 81001; 81025; 99283

== ENCOUNTER → 2022-08-19 | Outpatient (CLI) | payer MEDICAID, SELFPAY ==
[2022-08-19 16:47] LABS: Absolute Lymphocyte Count 2.56 X10^3/uL (0.83-4.51); Absolute Neutrophil Count 4.9 X10^3/uL (2.0-7.7); Basophil# 0.14 X10^3/uL; Basophil% 1.5 % (0-1); Eosinophils% 7.7 % (0-5); Hemoglobin 15.3 g/dL (12.0-15.0); Lymphocyte # 2.56 X10^3/ul (0.83-4.51); Mean Corpuscular Hgb 32.6 pg (27.0-32.0); Mean Corpuscular Volume 95.7 fL (81-99); Monocyte# 0.79 X10^3/uL; Monocyte% 8.6 % (0-10); NRBC Flagged by Analyzer 0 % (0-5); Neutrophil # 4.91 X10^3/uL (2.7-7.7); Neutrophil % 53.8 % (47-70); Platelet Count 266 K/mm3 (150-450); RBC Distribution Width CV 12.4 % (11.6-14.6); RBC Distribution Width SD 43.8 fl (35.1-43.9); White Blood Count 9.1 K/mm3 (4.4-11.0)
[2022-08-19 16:57] LABS: Hemoglobin A1c 5.7 % (3.8-5.6)
[2022-08-19 17:02] LABS: ALB/GLOB Ratio 0.9 RATIO (0.9-2.4); AST(SGOT) 31 U/L (15-37); Alanine Aminotransfer ALT/SGPT 54 U/L (13-56); Albumin, Serum 3.7 g/dL (3.2-5.0); Alkaline Phosphatase 104 U/L (45-117); Anion Gap 5 (5-15); BUN 14 mg/dL (7-18); BUN/Creat Ratio 14.9 RATIO (10-20); Calcium,Total 9.3 mg/dL (8.5-10.1); Chloride 108 mmol/L (98-107); Creatinine, Serum 0.94 mg/dL (0.55-1.02); EST Glomerular Filtration Rate 68 mL/min (>60); Est Glom Filt Rate - Afr Amer 82 mL/min (>60); Glucose 110 mg/dL (74-106); Potassium 4.1 mmol/L (3.5-5.1); Protein, Total 7.7 g/dL (6.4-8.2); Sodium Level 138 mmol/L (136-145)
== END | disposition home or self-care (01) ==
LOC: BIMLAB 14:42
PROVIDERS: PCP Internal Medicine; Referring Provider Internal Medicine; Visit Provider Internal Medicine
DX: R53.83 Other fatigue (principal); R73.09 Other abnormal glucose
CPT/HCPCS: 36415; 80053; 83036; 85025

== ENCOUNTER 2022-08-24 14:55 | Outpatient (RCR) | payer MEDICAID, SELFPAY | END 2022-08-24 19:00 | disposition home or self-care (01) | LOC: PT 14:55 | PROVIDERS: PCP Internal Medicine; Referring Provider Internal Medicine; Visit Provider Internal Medicine | DX: M25.511 Pain in right shoulder (principal) ==

== ENCOUNTER 2022-09-21 16:34 | Emergency (ER) | payer MEDICAID, SELFPAY ==
[2022-09-21 16:35] VITALS: BP 155/78; PULSE 78; RESP 16; TEMP 36.6; O2SAT 98; BMI 46.5
--- NOTE | 2022-09-21 17:13 | CT_ITS ---
STUDY: CT SOFT TISSUE NECK WITH CONTRAST REASON FOR EXAM: Female, 46 years old. hx achlasia, feels like food is getting stuck in throat, vomiting, additional images taken lower and at larger FOV to see distal esophagus TECHNIQUE: The patient was scanned in a multi-detector CT scanner. High resolution transaxial imaging was performed following intravenous administration of 75 ml of Isovue 370 contrast material. Sagittal and coronal images were reconstructed. Individualized dose optimization techniques were used for this CT. COMPARISON: None. pain -- reports obstruction/globus FINDINGS: Normal bilateral parotid glands. Normal bilateral bait maker spaces. Normal bilateral parapharyngeal spaces. Normal bilateral carotid spaces. Partially visualized right gastric pull through procedure. There is a food bolus partially seen in the post surgical stomach/esophagus noted in the upper chest. Normal bilateral sublingual and submandibular glands and spaces. Normal visualized nasopharynx. Normal retropharyngeal space. Normal perivertebral space. Normal visualized bilateral faucial tonsils. The visualized tongue, tongue base and oropharynx are normal. The visualized cervical lymph nodes (levels I-) are within normal size limits, and maintain normal morphology. There is no demonstrated solid or cystic mass lesion. There is no abnormal contrast enhancement. Normal epiglottis, bilateral vallecula and hypopharynx. The pre-epiglottic and paraglottic adipose spaces are normal. Normal visualized bilateral piriform sinuses, aryepiglottic folds, vocal cords, and arytenoid-cricoid articulations. Normal subglottic trachea. Normal bilateral lobes of the thyroid gland. Normal visualized pulmonary apices. Normal visualized paranasal sinuses. Normal visualized cervical spine. CT/Soft Tissue Neck WITH Contrast IMPRESSION: Partially visualized right gastric pull through procedure. There is a food bolus partially seen in the post surgical stomach/esophagus noted in the upper chest. Electronically Signed: Kostas Anderson MD at 18:35 EST ,
--- NOTE | 2022-09-21 17:14 | EX.ED.DYSGE1 ---
HPI History of Present Illness Chief Complaint: Sore Throat Informant: patient Narrative Narrative: Reports history of achalasia followed by [facility] last endoscopy 2019. She had surgery in the past. Reports since feels like something stuck in her throat. She states sometimes things will go down but mostly feels like it stuck in her throat and would come back up. She had diarrhea Tuesday resolved. She denies nausea states she is unable to keep things down. She is concerned of obstruction in her throat. Denies any pain with swallowing. Denies fevers. Prior similar symptoms: Yes PFSH PFSH Medical History Achalasia Arthritis Arthritis Environmental allergies Gallstones H/O emotional problems Hives Hx: UTI (urinary tract infection) Migraines Physical exam, pre-employment Post-menopausal Psoriasis Shortness of breath on exertion Smoker Vitamin deficiency Wears glasses Home Medications clobetasol 0.05 % topical ointment 1 applic topical QHS PRN PSORIASIS 02/04/22 [History Last Taken Unknown] ixekizumab 80 mg/mL subcutaneous auto-injector (Taltz Autoinjector) 80 mg subcut Q4W PSORIASIS 06/14/22 [History Last Taken Unknown] ergocalciferol (vitamin D2) 1,250 mcg (50,000 unit) capsule 50,000 unit PO QWEEK #8 caps 07/23/22 [Rx Last Taken Unknown] naproxen 500 mg tablet (Naprosyn) 500 mg PO BID PRN pain #20 tabs 08/16/22 [Rx Last Taken Unknown] lidocaine HCl 2 % mucosal solution (Lidocaine Viscous) 5 ml mucous membrane TID PRN pain #600 mL 09/21/22 [Rx Last Taken Unknown] Allergy/AdvReac Type Severity Reaction Status Date / Time cat dander Allergy Intermediate Swelling Verified 09/21/22 16:35 cephalexin Allergy Hives Verified 09/21/22 16:35 Sulfa (Sulfonamide Allergy Hives Verified 09/21/22 16:35 Antibiotics) Family History Mother Breast cancer COPD (chronic obstructive pulmonary disease) Sister Breast cancer Brother Hypertension Diabetes Grandmother Diabetes Surgical History History of hysterectomy History of surgical procedure Hx of cholecystectomy Hx of laparoscopy Social History household members: family current occupational status: employed 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 Smoking Status: Former smoker quit date: 08/08/21 pack-years: 18 Electronic Cigarette Use: not used alcohol intake: current alcohol intake frequency: holidays/special occasions only substance use type: does not use do you feel safe at home: Yes ROS ROS ED Constitutional Constitutional ED: Denies chills, fever(s) or sweats Eyes Eyes: Denies change in vision ENT ENT ED: Reports dysphagia; Denies sore throat Cardiovascular Cardiovascular: Denies chest pain, leg edema, palpitations or racing heartbeat Respiratory/Chest Respiratory/Chest: Denies cough, dyspnea or dyspnea on exertion Gastrointestinal Gastrointestinal: Reports vomiting; Denies abdominal pain, diarrhea or nausea Genitourinary Genitourinary ED: Denies dysuria, hematuria or urinary frequency Musculoskeletal Musculoskeletal: Denies back pain, extremity pain or neck pain Integumentary Denies rash or wounds Neurologic Neurologic: Denies headache(s), paresthesias or weakness EXAM Physical Exam Const Vital Signs: 09/21/22 16:35 09/21/22 19:52 Temperature 97.8 F Temperature Source Temporal Pulse Rate 78 74 Respiratory Rate 16 16 Blood Pressure 155/78 H 148/84 H Blood Pressure Mean 103 Pulse Ox 98 97 Oxygen Delivery Method Room Air Positive well nourished and well developed General Appearance ED: well developed and NAD HEENT Reports moist mucous membranes HEENT Narrative: White substance on tongue however would scrape off with tongue blade. There is posterior pharyngeal erythema no exudates 1+ symmetric tonsils uvula midline, airway patent. normocephalic and atraumatic Eyes PERRL, EOMs intact bilaterally and conjunctivae normal General Eye ED: Yes normal appearance of both eyes Neck no lymphadenopathy and supple General: Negative for tenderness Chest Wall Chest: Negative for tenderness Resp normal respiratory effort and normal air movement Effort and Inspection: symmetric chest movement; Negative for respiratory distress Cardio regular rate, regular rhythm and no murmurs Peripheral Pulses: pulses 2+ throughout GI normal to inspection, nondistended, normoactive bowel sounds and non-tender GI Narrative: Negative Curtis's or McBurney's tenderness. Palpation: Negative for guarding or rebound tenderness present Back/Spine no CVA tenderness and no thoracic nor lumbar tenderness Extremity normal to inspection General Extremety ED: Negative for edema or tenderness General Extremity: Negative for edema Neuro oriented x3 and no sensory deficits noted Sensorium / Orientation: awake and alert Skin no rashes or lesions noted and no wounds MDM MDM MDM Narrative Medical decision making narrative: Interventions / MDM: Differential diagnosis: Strep pharyngitis, achalasia, mass obstruction Diagnosis considered but do not suspect: N/A My EKG interpretation: N/A Imaging independently reviewed and interpreted by myself: CT soft tissue neck no mass. Upper part of the gastrum noted in the chest from surgery. Food was in the stomach. There is no obstruction. External documents reviewed: N/A Test considered but not ordered:N/A ED course: Patient reports increasing throat pain unable to keep things down. She had posterior pharyngeal erythema rapid strep negative she had labs done White count 15. Creatinine 1.27. She is treated fluids Decadron. CT soft tissue neck with no obstruction. She is more reassured. Discussed cultures pending for strep. With her history of achalasia discussed a PPI, however she has been states she was seen 3 days ago at [facility] [place] was started on a PPI from the ED. She has not picked this up. She will use this. She is able to tolerate p.o. intake on exam. There is no emesis. Rx for viscous lidocaine to help with symptom control. She will follow-up with her PCP and her GI doctor at [facility]. All questions were answered. Re-evaluation: stable Disposition discussed with patient/family/significant other: Patient and mother Case discussed with consulting clinician: N/A Lab Data Attestation: I reviewed the patient's lab results. Labs: Laboratory Results - last 24 hr 09/21/22 09/21/22 17:35 17:35 WBC 15.1 H RBC 5.09 Hgb 16.2 H Hct 49.5 H MCV 97.2 MCH 31.8 MCHC 32.7 RDW Std Deviation 43.4 RDW Coeff of Marisel 12.0 Plt Count 302 MPV 12.0 Immature Gran % (Auto) 0.700 Neut % (Auto) 72.4 H Lymph % (Auto) 12.6 L [place] % (Auto) 10.8 H Eos % (Auto) 2.6 Baso % (Auto) 0.9 Absolute Neuts (auto) 11.0 H Absolute Lymphs (auto) 1.90 Nucleated RBC % 0 Differential Comment SCANNED Diff Path Review December Sodium 139 Potassium 3.9 Chloride 105 Carbon Dioxide 26.0 Anion Gap 8 BUN 17 Creatinine 1.27 H Estim Creat Clear Calc 46.78 Est GFR (MDRD) Af Amer 58 L Est GFR (MDRD) Non-Af 48 L BUN/Creatinine Ratio 13.4 Glucose 113 H Calcium 10.1 Radiography Diagnostic Testing: Clinical Impression(s) from Imaging Studies Soft Tissue Neck CT 09/21/22 17:13 IMPRESSION: Partially visualized right gastric pull through procedure. There is a food bolus partially seen in the post surgical stomach/esophagus noted in the upper chest. Electronically Signed: Kostas Anderson MD at 18:35 EST Reading Location ID and State: [facility] / [place] , Service support , Discharge Plan Triage Chief Complaint: Sore Throat ED Provider: Merlin Finch Dx/Rx/DC Orders Clinical Impression: Pharyngitis, Achalasia of esophagus, Vomiting Instructions: ED Pharyngitis, Report Pending Prescriptions: New lidocaine HCl [Lidocaine Viscous] 2 % solution 5 ml mucous membrane TID PRN (Reason: pain) Qty: 600 0RF No Action clobetasol 0.05 % ointment 1 applic topical QHS PRN (Reason: PSORIASIS) ergocalciferol (vitamin D2) 1,250 mcg (50,000 unit) capsule 50,000 unit PO QWEEK Qty: 8 0RF naproxen [Naprosyn] 500 mg tablet 500 mg PO BID PRN (Reason: pain) Qty: 20 0RF Taltz Autoinjector 80 mg/mL auto-injector 80 mg subcut Q4W Label Comments: Now taking this instead of Cosentyx Primary Care Provider: Perri Dunlap Referrals: Perri Dunlap MD [Primary Care Provider] - 3-5 Days if not improving Activity Restrictions/Additional Instructions: CT soft issue negative. Rapid strep negative culture pending. Take your acid medicine written 3 days ago, use viscous lidocaine as needed for symptoms. You will be contacted if culture returns positive for treatment. Follow-up with your GI doctor and your PCP. Return if worsening symptoms. Disposition Disposition: Home, Self Care Discharge Date/Time: 09/21/22 19:56
[2022-09-21 17:42] LABS: Basophil# 0.13 X10^3/uL; Basophil% 0.9 % (0-1); Eosinophil# 0.39 X10^3/uL; Eosinophils% 2.6 % (0-5); Hematocrit 49.5 % (37-47); Hemoglobin 16.2 g/dL (12.0-15.0); Lymphocyte % 12.6 % (19-41); Mean Corp Hgb Conc 32.7 g/dL (32-36); Mean Corpuscular Hgb 31.8 pg (27.0-32.0); Mean Corpuscular Volume 97.2 fL (81-99); Monocyte# 1.64 X10^3/uL; Monocyte% 10.8 % (0-10); NRBC Flagged by Analyzer 0 % (0-5); Neutrophil # 10.97 X10^3/uL (2.7-7.7); Neutrophil % 72.4 % (47-70); POSITIVE DIFFERENTIAL YES; Platelet Count 302 K/mm3 (150-450); RBC Distribution Width SD 43.4 fl (35.1-43.9); Red Blood Count 5.09 M/mm3 (4.2-5.4); White Blood Count 15.1 K/mm3 (4.4-11.0)
[2022-09-21] MEDS: dexAMETHasone 10 MG/ML Vial IV (17:47)
[2022-09-21] MEDS: 0.9% Normal Saline 1,000 ML 1000 ML IV (17:47)
[2022-09-21 17:56] LABS: Differential Indicated SCAN CRITERIA MET
[2022-09-21 18:02] LABS: Anion Gap 8 (5-15); BUN 17 mg/dL (7-18); BUN/Creat Ratio 13.4 RATIO (10-20); Calcium,Total 10.1 mg/dL (8.5-10.1); Chloride 105 mmol/L (98-107); Creatinine, Serum 1.27 mg/dL (0.55-1.02); EST Glomerular Filtration Rate 48 mL/min (>60); Est Glom Filt Rate - Afr Amer 58 mL/min (>60); Estimated Creatinine Clearance 46.78 ml/min; Glucose 113 mg/dL (74-106); Potassium 3.9 mmol/L (3.5-5.1); Sodium Level 139 mmol/L (136-145)
[2022-09-21 18:09] LABS: Differential Comment SCANNED
[2022-09-21 19:52] VITALS: BP 148/84; PULSE 74; RESP 16; O2SAT 97
[2022-09-22 12:52] LABS: Pathologist Review Reviewed
== END 2022-09-21 19:56 | disposition home or self-care (01) ==
PROVIDERS: Emergency Provider Emergency Medicine; PCP Internal Medicine; Visit Provider Emergency Medicine
DX: J02.9 Acute pharyngitis, unspecified (principal); K22.0 Achalasia of cardia; L40.9 Psoriasis, unspecified; Z87.891 Personal history of nicotine dependence; R11.10 Vomiting, unspecified; Z79.52 Long term (current) use of systemic steroids; E56.9 Vitamin deficiency, unspecified; M19.90 Unspecified osteoarthritis, unspecified site; Z79.899 Other long term (current) drug therapy
CPT/HCPCS: 70491; 80048; 85025; 87880; 96361; 96374; 99283; Q9967; A4216

== ENCOUNTER → 2022-10-07 | Outpatient (CLI) | payer MEDICAID, SELFPAY ==
[2022-10-07 15:37] LABS: Absolute Lymphocyte Count 1.81 X10^3/uL (0.83-4.51); Absolute Neutrophil Count 7.3 X10^3/uL (2.0-7.7); Basophil% 0.9 % (0-1); Eosinophil# 0.43 X10^3/uL; Eosinophils% 4.1 % (0-5); Hematocrit 44.4 % (37-47); Hemoglobin 14.6 g/dL (12.0-15.0); Lymphocyte # 1.81 X10^3/ul (0.83-4.51); Lymphocyte % 17.1 % (19-41); Mean Corp Hgb Conc 32.9 g/dL (32-36); Mean Corpuscular Hgb 31.7 pg (27.0-32.0); Mean Corpuscular Volume 96.5 fL (81-99); Mean Platelet Vol. 13.7 fl (6.2-12.0); Monocyte# 0.92 X10^3/uL; Monocyte% 8.7 % (0-10); NRBC Flagged by Analyzer 0 % (0-5); Neutrophil % 68.7 % (47-70); Platelet Count 272 K/mm3 (150-450); RBC Distribution Width CV 12.4 % (11.6-14.6); RBC Distribution Width SD 43.9 fl (35.1-43.9); White Blood Count 10.6 K/mm3 (4.4-11.0)
[2022-10-07 16:14] LABS: ALB/GLOB Ratio 0.9 RATIO (0.9-2.4); AST(SGOT) 28 U/L (15-37); Alanine Aminotransfer ALT/SGPT 50 U/L (13-56); Albumin, Serum 3.5 g/dL (3.2-5.0); Alkaline Phosphatase 98 U/L (45-117); Anion Gap 6 (5-15); BUN 9 mg/dL (7-18); BUN/Creat Ratio 9.5 RATIO (10-20); Calcium,Total 9.5 mg/dL (8.5-10.1); Chloride 109 mmol/L (98-107); Creatinine, Serum 0.94 mg/dL (0.55-1.02); EST Glomerular Filtration Rate 67 mL/min (>60); Est Glom Filt Rate - Afr Amer 81 mL/min (>60); Glucose 127 mg/dL (74-106); Protein, Total 7.5 g/dL (6.4-8.2); Sodium Level 140 mmol/L (136-145)
[2022-10-07 17:40] LABS: Vitamin D,25 Hydroxy 20.3 ng/mL
[2022-10-11 12:08] LABS: Anti-Centromere B Ab <0.2 AI (0.0-0.9); Anti-Chromatin <0.2 AI (0.0-0.9); Anti-Jo <0.2 AI (0.0-0.9); Anti-Scleroderma-70 AB <0.2 AI (0.0-0.9); RNP Ab 0.2 AI (0.0-0.9); SJOGREN'S Anti-SS-A test < 0.2 AI (0.0-0.9); SJOGREN'S Anti-SS-B test < 0.2 AI (0.0-0.9); Smith Ab <0.2 AI (0.0-0.9)
[2022-10-11 18:51] LABS: ANTINUCLEAR ANTIBODIES DIRECT Negative (Negative); Anti-dsDNA Ab 1 IU/mL (0-9)
== END | disposition home or self-care (01) ==
LOC: BIMLAB 14:11
PROVIDERS: PCP Internal Medicine; Referring Provider Internal Medicine; Visit Provider Internal Medicine
DX: R53.83 Other fatigue (principal); L40.9 Psoriasis, unspecified; E55.9 Vitamin D deficiency, unspecified
CPT/HCPCS: 36415; 80053; 82306; 85025; 86038; 86225; 86235

== ENCOUNTER 2022-10-16 08:44 | Emergency (ER) | payer MEDICAID, SELFPAY ==
[2022-10-16] VITALS (7 sets, daily range): BP systolic 100–128; BP diastolic 69–88; PULSE 16–116; RESP 16–19; TEMP 36.1–36.7; O2SAT 93–96; BMI 43.9
[2022-10-16] MEDS: 0.9% Normal Saline 1,000 ML 1000 ML IV (09:14)
--- NOTE | 2022-10-16 09:21 | CT_ITS ---
EXAM: CT CHEST AND ABDOMEN WITH INTRAVENOUS CONTRAST CLINICAL INDICATION: Achalasia, large-volume hematemesis TECHNIQUE: Helically acquired images were obtained of the chest and abdomen with intravenous contrast. This CT exam was performed using one or more of the following dose reduction techniques: automated exposure control, adjustment of the mA and/or kV according to patient size, and/or use of iterative reconstruction technique. This report was created using [employer] report [employer] technology. CONTRAST: IV 100mL [id number] RADIATION DOSE: CTDIvol = 22.89 mGy, DLP = 1786.54 mGy-cm COMPARISON: CT abdomen and pelvis without contrast 06/19/2013. CT neck with contrast 09/21/2022. No prior CT chest for comparison. FINDINGS: CHEST: LUNGS AND PLEURAL SPACES: Unremarkable. No mass. No consolidation or edema. No pleural effusion or thickening. No pneumothorax. HEART: Unremarkable. Heart size is normal. No pericardial effusion. No significant coronary artery calcifications. MEDIASTINUM: Fluid-filled dilatation of the entire esophagus consistent with known achalasia. No mediastinal or hilar adenopathy. No hiatal hernia. THYROID: Unremarkable. No thyroid lesions. ABDOMEN: LIVER: Mild diffuse fatty infiltration of the liver. Homogeneous. No focal mass. GALLBLADDER AND BILE DUCTS: Unremarkable. No calcified gallstones. No gallbladder distention or wall edema. No intra- or extrahepatic biliary ductal dilation. PANCREAS: Unremarkable. No focal cystic or solid mass. SPLEEN: Unremarkable. Normal size without focal cystic or solid mass. ADRENALS: Unremarkable. No nodules. KIDNEYS AND URETERS: Unremarkable. Normal renal size and position. No hydronephrosis. STOMACH AND BOWEL: Unremarkable. No stomach or bowel distention. No focal inflammatory change. INTRAPERITONEAL SPACE: Unremarkable. No ascites or other fluid collection. No free air. CHEST and ABDOMEN: BONES/JOINTS: Unremarkable. No suspicious lytic or blastic abnormality. SOFT TISSUES: Unremarkable. No discrete abdominal wall hernia. VASCULATURE: Unremarkable. Aorta is non-dilated. No aortic dissection. No obvious central pulmonary embolism although this study was not performed with the pulmonary embolism protocol. LYMPH NODES: Unremarkable. No enlarged lymph nodes. CT/CT Chest AND Abd W/ Contrast IMPRESSION: 1. Abnormal fluid-filled dilatation of the stomach secondary to known achalasia. 2. No acute abnormality in the chest and abdomen. 3. Mild hepatic steatosis is the only new finding. No significant interval change when compared to the CT neck of 09/21/[address] abdomen and pelvis of 06/19/2013. Electronically Signed: Omer Carreon MD at 9:56 EST ,
[2022-10-16 09:30] LABS: Absolute Lymphocyte Count 2.66 X10^3/uL (0.83-4.51); Absolute Neutrophil Count 6.9 X10^3/uL (2.0-7.7); Basophil# 0.09 X10^3/uL; Basophil% 0.8 % (0-1); Eosinophil# 0.42 X10^3/uL; Eosinophils% 3.8 % (0-5); Hemoglobin 15.7 g/dL (12.0-15.0); Lymphocyte # 2.66 X10^3/ul (0.83-4.51); Lymphocyte % 24.1 % (19-41); Mean Corp Hgb Conc 33.4 g/dL (32-36); Mean Corpuscular Hgb 31.8 pg (27.0-32.0); Mean Corpuscular Volume 95.3 fL (81-99); Monocyte# 0.95 X10^3/uL; Monocyte% 8.6 % (0-10); NRBC Flagged by Analyzer 0 % (0-5); Neutrophil # 6.87 X10^3/uL (2.7-7.7); Neutrophil % 62.2 % (47-70); Platelet Count 293 K/mm3 (150-450); RBC Distribution Width CV 12.3 % (11.6-14.6); RBC Distribution Width SD 43.1 fl (35.1-43.9); Red Blood Count 4.93 M/mm3 (4.2-5.4); White Blood Count 11.1 K/mm3 (4.4-11.0)
--- NOTE | 2022-10-16 09:37 | EDS_ITS ---
HPI History of Present Illness Chief Complaint: Nausea/Vomiting Informant: patient Narrative Narrative: Patient is a 46-year-old female with history of achalasia, follows with Dr. Maryam Hobbs at [facility] (thoracic surgery). She is presenting with episode of richie mopped assist this morning. Patient states for the past month she has been having decreased ability to keep food down and she is she attributes to her achalasia. She threw up this morning and it was grossly bloody. She take a picture of it and show it to me. States is around 4 5 AM. She states that over the past week or so she had a 15 pound weight loss and is now only urinating once a day because she cannot really keep anything down. She has mild burning sensation in her chest and foreign body/globus sensation in her throat. She states sometimes if she drinks and then lays flat she can get something down. She has been trying to take her PPIs but is having hard time because of all of the vomiting. She states he has not a bowel movement a week but attributes that to decreased oral intake. Denies any acute change in her symptoms today except for the hematemesis. No other complaints at this time. Does not drink alcohol regularly. Denies any history of liver cirrhosis or esophageal varices. Does not take any NSAIDs or aspirin. Is not on any anticoagulation. [facility] Medical History Achalasia Arthritis Arthritis Environmental allergies Gallstones H/O emotional problems Hives Hx: UTI (urinary tract infection) Migraines Physical exam, pre-employment Post-menopausal Psoriasis Shortness of breath on exertion Smoker Vitamin deficiency Wears glasses Home Medications clobetasol 0.05 % topical ointment 1 applic topical QHS PRN PSORIASIS 02/04/22 [History Last Taken Unknown] ixekizumab 80 mg/mL subcutaneous auto-injector (Taltz Autoinjector) 80 mg subcut Q4W PSORIASIS 06/14/22 [History Last Taken Unknown] ergocalciferol (vitamin D2) 1,250 mcg (50,000 unit) capsule 50,000 unit PO QWEEK #8 caps 07/23/22 [Rx Last Taken Unknown] naproxen 500 mg tablet (Naprosyn) 500 mg PO BID PRN pain #20 tabs 08/16/22 [Rx Last Taken Unknown] lidocaine HCl 2 % mucosal solution (Lidocaine Viscous) 5 ml mucous membrane TID PRN pain #600 mL 09/21/22 [Rx Last Taken Unknown] ondansetron 4 mg disintegrating tablet 4 mg PO Q8H PRN nausea and vomiting #10 tabs 10/15/22 [Rx Last Taken Unknown] Allergy/AdvReac Type Severity Reaction Status Date / Time cat dander Allergy Intermediate Swelling Verified 10/16/22 08:48 cephalexin Allergy Hives Verified 10/16/22 08:48 Sulfa (Sulfonamide Allergy Hives Verified 10/16/22 08:48 Antibiotics) Family History Mother Breast cancer COPD (chronic obstructive pulmonary disease) Sister Breast cancer Brother Hypertension Diabetes Grandmother Diabetes Surgical History History of hysterectomy History of surgical procedure Hx of cholecystectomy Hx of laparoscopy Social History household members: family current occupational status: employed current occupation: works as an [employer] Smoking Status: Former smoker quit date: 08/08/21 pack-years: 18 Electronic Cigarette Use: not used alcohol intake: current alcohol intake frequency: holidays/special occasions only substance use type: does not use do you feel safe at home: Yes ROS ROS ED Constitutional Constitutional ED: Reports weight loss; Denies chills or fever(s) Eyes Eyes: Denies change in vision ENT ENT ED: Denies rhinorrhea or sore throat Cardiovascular Cardiovascular: Denies chest pain Respiratory/Chest Respiratory/Chest: Denies cough Gastrointestinal Gastrointestinal: Reports abdominal pain, nausea, vomiting and other Details: Hematemesis Musculoskeletal Musculoskeletal: Denies arthralgias or myalgias Integumentary Denies rash Psychiatric Psychiatric: Denies anxiety Hematologic/Lymphatic Hematologic/Lymphatic: Denies easy bleeding or easy bruising EXAM Physical Exam Const Vital Signs: 10/16/22 08:45 10/16/22 08:55 10/16/22 09:59 Temperature 96.9 F L 98.1 F Temperature Source Temporal Oral Pulse Rate 116 H 113 H 91 Respiratory Rate 18 18 16 Blood Pressure 128/75 H 121/88 H 100/69 Blood Pressure Mean 92 99 79 Pulse Ox 96 94 94 Oxygen Delivery Method Room Air Room Air Room Air 10/16/22 11:14 10/16/22 14:14 10/16/22 15:20 Temperature Temperature Source Pulse Rate 90 91 85 Respiratory Rate 16 19 H 17 Blood Pressure 115/75 109/78 Blood Pressure Mean 88 88 Pulse Ox 94 93 96 Oxygen Delivery Method Room Air Room Air Room Air 10/16/22 17:10 Temperature Temperature Source Pulse Rate 16 L Respiratory Rate Blood Pressure Blood Pressure Mean Pulse Ox Oxygen Delivery Method Room Air Positive well nourished and well developed General Appearance ED: well developed and NAD; Negative for pallor HEENT Reports dry mucous membranes Mouth ED: Yes dry mucous membranes Mouth: dry mucous membranes Eyes PERRL and EOMs intact bilaterally General Eye ED: Negative for pale conjunctiva Neck supple and no JVD Neck Narrative: Normal range of motion, normal phonation Chest Wall inspection of chest normal and palpation of chest normal Chest Narrative: No chest wall crepitus appreciated Resp normal respiratory effort and clear to auscultation bilaterally Cardio regular rhythm and no murmurs Rate: tachycardic GI normal to inspection, nondistended, normoactive bowel sounds and non-tender Palpation: soft; Negative for tender or guarding Back/Spine no CVA tenderness Extremity normal to inspection General Extremety ED: Negative for edema General Extremity: Negative for edema Neuro oriented x3 Sensorium / Orientation: alert Motor Exam: Negative for general weakness Psych mental status grossly normal Skin no rashes or lesions noted General Skin Exam: Negative for jaundice or pallor MDM MDM MDM Narrative Medical decision making narrative: Patient is evaluated for persistent vomiting in the setting of achalasia and now hematemesis. Patient did show me a picture of richie blood that she threw up this morning. She initially did not have any further episodes of vomiting in the emergency room. Patient is tachycardic upon arrival. Differential includes Boerhaave syndrome, Rita-Tolliver tear, acute blood loss anemia as well as dehydration and ketosis. Patient CBC initially is slightly hemoconcentrated with a hemoglobin of 15.7 and white blood cell count of 11.1. Platelets are normal at 293. Her coags are mildly elevated at 15.9 and 37.4 for her PT/PTT. Patient's CMP remarkable for mild hypokalemia of 3.3, creatinine of 1.13 which is the patient's baseline and a mild transaminitis with an AST of 44 and an ALT of 68. Her BUN to creatinine ratio was 15. Patient's lipase is normal. Urinalysis shows 15 ketones and is consistent with contamination. Patient is given a dose of IV Protonix in the emergency room. She is also given IV fluids and Zofran with improvement of her vital signs. She remains hemodynamically stable in the emergency room. CT of the Chest and abdomen obtained to look for any signs of mediastinitis or rupture and it does show changes consistent with achalasia. Case is discussed with GI on-call who feels that with her achalasia she is a bit too complicated for facility and needs thoracic surgery backup. Case discussed with cardiothoracic surgery on-call at [facility], Dr. Jacob Kwong. He does not think that acute thoracic surgery intervention is indicated but does feel that patient should be scoped and brought in to be seen by the GI team. I spoke with the medicine quarterback Dr. Kramer, who accepts the patient to the medicine service. She later does have a second episode of vomiting and it is bloody. CBC is rechecked and her hemoglobin is mildly dropped to 14.1 but she remains hemodynamically stable. She does not have further vomiting. Patient is agreeable this plan of care. Lab Data Attestation: I reviewed the patient's lab results. Labs: Laboratory Results - last 24 hr 10/16/22 10/16/22 10/16/22 09:00 09:00 09:00 WBC 11.1 H RBC 4.93 Hgb 15.7 H Hct 47.0 MCV 95.3 MCH 31.8 MCHC 33.4 RDW Std Deviation 43.1 RDW Coeff of Marisel 12.3 Plt Count 293 MPV 13.0 H Immature Gran % (Auto) 0.500 Neut % (Auto) 62.2 Lymph % (Auto) 24.1 [place] % (Auto) 8.6 Eos % (Auto) 3.8 Baso % (Auto) 0.8 Absolute Neuts (auto) 6.9 Absolute Lymphs (auto) 2.66 Nucleated RBC % 0 PT 15.4 H INR 1.3 APTT 37.4 H Sodium 140 Potassium 3.3 L Chloride 105 Carbon Dioxide 24.0 Anion Gap 11 BUN 17 Creatinine 1.13 H Estim Creat Clear Calc 52.58 Est GFR (MDRD) Af Amer 66 Est GFR (MDRD) Non-Af 54 L BUN/Creatinine Ratio 15.0 Glucose 133 H Calcium 9.9 Total Bilirubin 0.60 AST 44 H ALT 68 H Alkaline Phosphatase 108 Troponin I High Sens 5 Total Protein 8.5 H Albumin 3.8 Globulin 4.7 H Albumin/Globulin Ratio 0.8 L Lipase 113 Urine Color Urine Clarity Urine pH Ur Specific [place] Urine Protein Urine Glucose (UA) Urine Ketones Urine Occult Blood Urine Nitrite Urine Bilirubin Urine Urobilinogen Ur Leukocyte Esterase Urine RBC Urine WBC Ur Squamous Epith Cells Urine Bacteria Urine Mucus Blood Type Antibody Screen Antibody Identification 10/16/22 10/16/22 10/16/22 09:28 09:28 10:36 WBC RBC Hgb Hct MCV MCH MCHC RDW Std Deviation RDW Coeff of Marisel Plt Count MPV Immature Gran % (Auto) Neut % (Auto) Lymph % (Auto) [place] % (Auto) Eos % (Auto) Baso % (Auto) Absolute Neuts (auto) Absolute Lymphs (auto) Nucleated RBC % PT INR APTT Sodium Potassium Chloride Carbon Dioxide Anion Gap BUN Creatinine Estim Creat Clear Calc Est GFR (MDRD) Af Amer Est GFR (MDRD) Non-Af BUN/Creatinine Ratio Glucose Calcium Total Bilirubin AST ALT Alkaline Phosphatase Troponin I High Sens Total Protein Albumin Globulin Albumin/Globulin Ratio Lipase Urine Color Yellow Urine Clarity Clear Urine pH 6.5 Ur Specific [place] 1.005 Urine Protein 30 H Urine Glucose (UA) Normal Urine Ketones 15 H Urine Occult Blood Negative Urine Nitrite Negative Urine Bilirubin Negative Urine Urobilinogen 1 H Ur Leukocyte Esterase Negative Urine RBC 0 SEEN Urine WBC 0 SEEN Ur Squamous Epith Cells 10-25 SEEN Urine Bacteria 0 SEEN Urine Mucus 0 SEEN Blood Type O POSITIVE Antibody Screen TNP NEGATIVE Antibody Identification TNP 10/16/22 12:50 WBC 10.0 RBC 4.38 Hgb 14.1 Hct 42.0 MCV 95.9 MCH 32.2 H MCHC 33.6 RDW Std Deviation 43.5 RDW Coeff of Marisel 12.2 Plt Count 260 MPV 12.7 H Immature Gran % (Auto) 0.700 Neut % (Auto) 65.3 Lymph % (Auto) 22.3 [place] % (Auto) 8.4 Eos % (Auto) 2.5 Baso % (Auto) 0.8 Absolute Neuts (auto) 6.5 Absolute Lymphs (auto) 2.22 Nucleated RBC % 0 PT INR APTT Sodium Potassium Chloride Carbon Dioxide Anion Gap BUN Creatinine Estim Creat Clear Calc Est GFR (MDRD) Af Amer Est GFR (MDRD) Non-Af BUN/Creatinine Ratio Glucose Calcium Total Bilirubin AST ALT Alkaline Phosphatase Troponin I High Sens Total Protein Albumin Globulin Albumin/Globulin Ratio Lipase Urine Color Urine Clarity Urine pH Ur Specific [place] Urine Protein Urine Glucose (UA) Urine Ketones Urine Occult Blood Urine Nitrite Urine Bilirubin Urine Urobilinogen Ur Leukocyte Esterase Urine RBC Urine WBC Ur Squamous Epith Cells Urine Bacteria Urine Mucus Blood Type Antibody Screen Antibody Identification Radiography Chest X-Ray - ED: 1 View, Read by ED Physician, Read by Radiologist and No Acute Disease Diagnostic Testing: Clinical Impression(s) from Imaging Studies Chest/Abdomen CT 10/16/22 09:21 IMPRESSION: 1. Abnormal fluid-filled dilatation of the stomach secondary to known achalasia. 2. No acute abnormality in the chest and abdomen. 3. Mild hepatic steatosis is the only new finding. No significant interval change when compared to the CT neck of 09/21/[address] abdomen and pelvis of 06/19/2013. Electronically Signed: Omer Carreon MD at 9:56 EST , Chest X-Ray 10/16/22 09:40 IMPRESSION: 1. No acute findings in the chest. 2. Dilated esophagus with air-fluid level consistent with known achalasia. This is unchanged. Electronically Signed: Omer Carreon MD at 9:58 EST , Rhythm Strip Rhythm Strip: Sinus Tach Rate: 108 Ectopy: None EKG Initial EKG: Attestation: I personally reviewed and interpreted this EKG as follows: Comments: Sinus tachycardia at a rate of 108 bpm Normal axis Normal intervals Normal ST segments Discharge Plan Triage Chief Complaint: Nausea/Vomiting ED Provider: Rachelle Madera Dx/Rx/DC Orders Clinical Impression: Acute upper gastrointestinal bleeding Prescriptions: No Action clobetasol 0.05 % ointment 1 applic topical QHS PRN (Reason: PSORIASIS) ergocalciferol (vitamin D2) 1,250 mcg (50,000 unit) capsule 50,000 unit PO QWEEK Qty: 8 0RF naproxen [Naprosyn] 500 mg tablet 500 mg PO BID PRN (Reason: pain) Qty: 20 0RF lidocaine HCl [Lidocaine Viscous] 2 % solution 5 ml mucous membrane TID PRN (Reason: pain) Qty: 600 0RF Taltz Autoinjector 80 mg/mL auto-injector 80 mg subcut Q4W Label Comments: Now taking this instead of Cosentyx ondansetron 4 mg tablet,disintegrating 4 mg PO Q8H PRN (Reason: nausea and vomiting) Qty: 10 0RF Primary Care Provider: Perri Dunlap Referrals: Perri Dunlap MD [Primary Care Provider] -
--- NOTE | 2022-10-16 09:40 | RAD_ITS ---
EXAM: XR CHEST, 1 VIEW CLINICAL INDICATION: Chest pain. TECHNIQUE: Frontal view of the chest. This report was created using FaceTags report generation technology. COMPARISON: 09/26/2019. FINDINGS: LUNGS AND PLEURAL SPACES: The lungs are clear. No pneumothorax. No effusion. HEART: Unremarkable. Normal cardiac size. MEDIASTINUM: Dilated esophagus with air-fluid level consistent with known achalasia. BONES/JOINTS: Unremarkable. SOFT TISSUES: Unremarkable. RAD/Chest 1 View (Portable) IMPRESSION: 1. No acute findings in the chest. 2. Dilated esophagus with air-fluid level consistent with known achalasia. This is unchanged. Electronically Signed: Omer Carreon MD at 9:58 EST ,
[2022-10-16 09:46] LABS: ALB/GLOB Ratio 0.8 RATIO (0.9-2.4); AST(SGOT) 44 U/L (15-37); Alanine Aminotransfer ALT/SGPT 68 U/L (13-56); Albumin, Serum 3.8 g/dL (3.2-5.0); Alkaline Phosphatase 108 U/L (45-117); Anion Gap 11 (5-15); BUN 17 mg/dL (7-18); Calcium,Total 9.9 mg/dL (8.5-10.1); Chloride 105 mmol/L (98-107); Creatinine, Serum 1.13 mg/dL (0.55-1.02); EST Glomerular Filtration Rate 54 mL/min (>60); Est Glom Filt Rate - Afr Amer 66 mL/min (>60); Estimated Creatinine Clearance 52.58 ml/min; Globulin 4.7 g/dL (2.2-4.2); Glucose 133 mg/dL (74-106); Lipase 113 U/L (73-393); Potassium 3.3 mmol/L (3.5-5.1); Protein, Total 8.5 g/dL (6.4-8.2); Sodium Level 140 mmol/L (136-145); Troponin-I HS 5 pg/mL (3.0-54.0)
[2022-10-16] MEDS: Ondansetron 4 MG/2 ML Vial IV (09:51)
[2022-10-16 10:17] LABS: International Normalized Ratio 1.3; Prothrombin Time (Protime)PT. 15.4 SECONDS (11.7-14.9)
[2022-10-16 10:18] LABS: Partial Thromboplast Time 37.4 Seconds (24.1-36.2)
[2022-10-16 10:47] LABS: Bacteria 0 SEEN /hpf (None Seen); Mucous, Urine 0 SEEN /hpf (<or=2+); Red Blood Cells-Urine 0 SEEN /hpf (0-5); White Blood Cells 0 SEEN /hpf (0-5)
[2022-10-16 11:01] LABS: Color, Urine Yellow (Yellow); Glucose, Dipstick Normal (Normal); Ketone-Dipstick 15 mg/dl (Negative); Leukocyte Esterase-Dipstick Negative /ul (Negative); Nitrite-Dipstick Negative (Negative); Occult Blood-Urine Negative /ul (Negative); Protein-Dipstick 30 mg/dl (Negative); Specific Gravity, Urine 1.005 (1.002-1.030); Urine Bilirubin Dipstick Negative (Negative); Urine Clarity Clear (Clear); Urine Urobilinogen 1 mg/dl (Normal); Urine pH 6.5 (5.0 - 8.0)
[2022-10-16 11:11] LABS: Squamous Epithelial Cells - UA 10-25 SEEN /hpf (5-10)
[2022-10-16 12:59] LABS: Absolute Lymphocyte Count 2.22 X10^3/uL (0.83-4.51); Absolute Neutrophil Count 6.5 X10^3/uL (2.0-7.7); Basophil# 0.08 X10^3/uL; Basophil% 0.8 % (0-1); Eosinophil# 0.25 X10^3/uL; Eosinophils% 2.5 % (0-5); Hemoglobin 14.1 g/dL (12.0-15.0); Lymphocyte # 2.22 X10^3/ul (0.83-4.51); Lymphocyte % 22.3 % (19-41); Mean Corp Hgb Conc 33.6 g/dL (32-36); Mean Corpuscular Hgb 32.2 pg (27.0-32.0); Mean Corpuscular Volume 95.9 fL (81-99); Mean Platelet Vol. 12.7 fl (6.2-12.0); Monocyte# 0.84 X10^3/uL; Monocyte% 8.4 % (0-10); NRBC Flagged by Analyzer 0 % (0-5); Neutrophil % 65.3 % (47-70); Platelet Count 260 K/mm3 (150-450); RBC Distribution Width CV 12.2 % (11.6-14.6); RBC Distribution Width SD 43.5 fl (35.1-43.9); Red Blood Count 4.38 M/mm3 (4.2-5.4)
[2022-10-16] MEDS: 0.9% Normal Saline 1,000 ML 150 ML IV (13:27)
--- NOTE | 2022-10-16 17:27 | ED.RN ---
[facility] called. Unable to give report states that they will call back to ED.
== END 2022-10-16 17:10 | disposition short-term general hospital (02) ==
LOC: ED 09:15
PROVIDERS: Emergency Provider Emergency Medicine; PCP Internal Medicine; Visit Provider Emergency Medicine
DX: K92.2 Gastrointestinal hemorrhage, unspecified (principal); K22.0 Achalasia of cardia; K92.0 Hematemesis; Z87.891 Personal history of nicotine dependence
CPT/HCPCS: 86870; 71045; 71260; 74160; 80053; 81001; 83690; 84484; 85025; 85610; 85730; 86850; 86900; 86901; 87426; 93005; 96365; 96366; 96375; 99284; J7030; Q9967; A4216; J2405; J3490

== ENCOUNTER → 2022-11-01 | Outpatient (CLI) | payer MEDICAID, SELFPAY ==
[2022-11-01 12:19] LABS: Absolute Lymphocyte Count 1.39 X10^3/uL (0.83-4.51); Absolute Neutrophil Count 8.2 X10^3/uL (2.0-7.7); Basophil# 0.11 X10^3/uL; Eosinophil# 0.35 X10^3/uL; Eosinophils% 3.3 % (0-5); Hematocrit 41.1 % (37-47); Lymphocyte # 1.39 X10^3/ul (0.83-4.51); Mean Corp Hgb Conc 34.1 g/dL (32-36); Mean Corpuscular Hgb 32.6 pg (27.0-32.0); Mean Corpuscular Volume 95.6 fL (81-99); Mean Platelet Vol. 12.7 fl (6.2-12.0); Monocyte# 0.64 X10^3/uL; NRBC Flagged by Analyzer 0 % (0-5); Neutrophil # 8.16 X10^3/uL (2.7-7.7); Neutrophil % 76.1 % (47-70); Platelet Count 361 K/mm3 (150-450); RBC Distribution Width CV 12.7 % (11.6-14.6); RBC Distribution Width SD 44.4 fl (35.1-43.9); White Blood Count 10.7 K/mm3 (4.4-11.0)
[2022-11-01 12:58] LABS: ALB/GLOB Ratio 0.8 RATIO (0.9-2.4); AST(SGOT) 56 U/L (15-37); Alanine Aminotransfer ALT/SGPT 82 U/L (13-56); Albumin, Serum 3.4 g/dL (3.2-5.0); Alkaline Phosphatase 100 U/L (45-117); Anion Gap 6 (5-15); BUN 10 mg/dL (7-18); BUN/Creat Ratio 10.3 RATIO (10-20); Calcium,Total 9.3 mg/dL (8.5-10.1); Chloride 107 mmol/L (98-107); Creatinine, Serum 0.97 mg/dL (0.55-1.02); EST Glomerular Filtration Rate 65 mL/min (>60); Est Glom Filt Rate - Afr Amer 79 mL/min (>60); Globulin 4.4 g/dL (2.2-4.2); Glucose 134 mg/dL (74-106); Potassium 3.4 mmol/L (3.5-5.1); Protein, Total 7.8 g/dL (6.4-8.2); Sodium Level 137 mmol/L (136-145)
== END | disposition home or self-care (01) ==
LOC: BIMLAB 11:32
PROVIDERS: PCP Internal Medicine; Referring Provider Internal Medicine; Visit Provider Internal Medicine
DX: R13.10 Dysphagia, unspecified (principal)
CPT/HCPCS: 36415; 80053; 85025

== ENCOUNTER 2022-11-15 14:22 | Emergency (ER) | payer MEDICAID, SELFPAY ==
[2022-11-15 14:22] VITALS: BP 137/84; PULSE 114; RESP 18; TEMP 36.3; O2SAT 95; BMI 41.7
--- NOTE | 2022-11-15 14:55 | ED.RN ---
PT STATES SHE IS ON A LIQUID DIET DUE TO HEALTH HX PER THORACIC SURGEON.
--- NOTE | 2022-11-15 15:28 | EX.ED.DYSGE1 ---
HPI History of Present Illness Chief Complaint: Nausea/Vomiting Informant: patient and family Narrative Narrative: Patient presents with ongoing problems with nausea and vomiting. This patient has a long history of achalasia. She sees thoracic surgeon Dr. Anjel ramirez at [facility]. She had a Heller myomotomy back in 2016 but no other surgical procedures. She was admitted from approximately -22 October up in [place] for hematemesis. A scope was done at the time. She is set for another EGD in about 2 to 3 weeks. She had an upper GI toward the end of October up there. She states she has been having more problems with nausea and vomiting for the last about 2 weeks. She has lost 12 pounds. Prior to this she had lost about 30 pounds because of ongoing problems with nausea vomiting and difficulty getting foods in. She only takes liquids and does not even try solids. She is to having bowel movements but they are small. She has decreased urine output. She does not feel thirsty. She has not had fevers. She states she gets spasms in the lower esophagus but is not really having pain with this. No trouble breathing or chest pain. She has not vomited any blood this time. [facility] Medical History Achalasia Arthritis Arthritis Environmental allergies Gallstones H/O emotional problems Hives Hx: UTI (urinary tract infection) Migraines Physical exam, pre-employment Post-menopausal Psoriasis Shortness of breath on exertion Smoker Vitamin deficiency Wears glasses Home Medications ixekizumab 80 mg/mL subcutaneous auto-injector (Taltz Autoinjector) 80 mg subcut Q4W PSORIASIS 06/14/22 [History Last Taken Unknown] lidocaine HCl 2 % mucosal solution (Lidocaine Viscous) 5 ml mucous membrane TID PRN pain #600 mL 09/21/22 [Rx Last Taken Unknown] ondansetron 4 mg disintegrating tablet 4 mg PO Q8H PRN nausea and vomiting #10 tabs 10/15/22 [Rx Last Taken Unknown] omeprazole magnesium 2.5 mg oral suspension,delayed release 40 mg PO BID #30 ea 11/01/22 [Rx Last Taken Unknown] potassium chloride 40 mEq/15 mL oral liquid 40 meq (15 mL) PO ONCE #15 mL 11/01/22 [Rx Last Taken Unknown] promethazine 25 mg rectal suppository (Promethegan) 25 mg ME Q6H PRN PRN Nausea #12 ea 11/15/22 [Rx Last Taken Unknown] Allergy/AdvReac Type Severity Reaction Status Date / Time cat dander Allergy Intermediate Swelling Verified 11/15/22 14:55 cephalexin Allergy Hives Verified 11/15/22 14:55 Sulfa (Sulfonamide Allergy Hives Verified 11/15/22 14:55 Antibiotics) Family History Mother Breast cancer COPD (chronic obstructive pulmonary disease) Sister Breast cancer Brother Hypertension Diabetes Grandmother Diabetes Surgical History History of hysterectomy History of surgical procedure Hx of cholecystectomy Hx of laparoscopy Social History household members: family current occupational status: employed current occupation: works as an [employer] Smoking Status: Former smoker quit date: 08/08/21 pack-years: 18 Electronic Cigarette Use: not used alcohol intake: current alcohol intake frequency: holidays/special occasions only substance use type: does not use do you feel safe at home: Yes ROS ROS ED Constitutional Constitutional ED: Denies chills or fever(s) ENT ENT ED: Denies ear pain, rhinorrhea or sore throat Cardiovascular Cardiovascular: Denies chest pain Respiratory/Chest Respiratory/Chest: Denies cough or dyspnea Gastrointestinal Gastrointestinal: Reports nausea and vomiting; Denies abdominal pain, constipation, diarrhea or melena Genitourinary Genitourinary ED: Reports other Details: Decreased urine volume. ; Denies dysuria or urinary frequency Musculoskeletal Musculoskeletal: Denies myalgias Integumentary Denies rash Neurologic Neurologic: Denies headache(s) or weakness Endocrine Endocrinology: Denies polydipsia or polyuria Allergic/Immunologic Allergic/Immunologic ED: Denies urticaria EXAM Physical Exam Narrative Exam Narrative: Patient awake alert sitting in bed. She appears comfortable. She is nontoxic and carries on normal conversation. HEENT does show some dry mucous membranes. No sinus tenderness. Eyes show no icterus Neck shows no stridor Lungs are clear. Heart is regular but is tachycardic at about 110 likely due to dehydration. Abdomen is soft. There is really no distention. Bowel sounds are just slightly decreased but still present. I feel no masses. No rebound or guarding. She is not having tenderness including no notable epigastric tenderness. shows no suprapubic or CVA tenderness Neurologically she is awake alert and appropriate. Const Vital Signs: 11/15/22 14:22 11/15/22 16:47 Temperature 97.4 F L Temperature Source Temporal Pulse Rate 114 H 85 Respiratory Rate 18 17 Blood Pressure 137/84 H 108/70 Blood Pressure Mean 101 82 Pulse Ox 95 97 Oxygen Delivery Method Room Air Room Air MDM MDM MDM Narrative Medical decision making narrative: Patient CBC showed minimal elevation of white count hemoglobin that could be due to some mild dehydration. Platelets were normal. Electrolytes show no marked abnormalities. Minimal decrease of potassium. Due to the patient already having swallowing and nausea issues this was not replaced. She appreciated this as she has had problems with swallowing potassium before. But there is no sign of significant dehydration on her electrolytes. Liver function test showed no acute abnormalities. Lipase is negative Patient is feeling better. She is comfortable going home. She has been dealing with this for a long time. Clinically she did have some signs of dehydration. But her heart rate is down. I will write for Phenergan. She already has Zofran at home but just feels as though it does not work too well anymore. She does have omeprazole which she is grinding into a powder to take. Her insurance does not approve the liquid. I discussed writing this but she does not think it would help. She will follow-up with her cardiothoracic surgeon and community chest officer at the [facility]. We discussed reasons to return. Lab Data Attestation: I reviewed the patient's lab results. Labs: Laboratory Results - last 24 hr 11/15/22 11/15/22 15:35 15:35 WBC 11.5 H RBC 4.78 Hgb 15.3 H Hct 45.6 MCV 95.4 MCH 32.0 MCHC 33.6 RDW Std Deviation 43.2 RDW Coeff of Marisel 12.4 Plt Count 314 MPV 12.4 H Immature Gran % (Auto) 0.300 Neut % (Auto) 69.5 Lymph % (Auto) 16.7 L [place] % (Auto) 8.9 Eos % (Auto) 3.5 Baso % (Auto) 1.1 H Absolute Neuts (auto) 8.0 H Absolute Lymphs (auto) 1.92 Nucleated RBC % 0 Sodium 137 Potassium 3.4 L Chloride 102 Carbon Dioxide 26.0 Anion Gap 9 BUN 14 Creatinine 0.93 Estim Creat Clear Calc 63.19 Est GFR (MDRD) Af Amer 82 Est GFR (MDRD) Non-Af 68 BUN/Creatinine Ratio 15.1 Glucose 100 Calcium 9.9 Total Bilirubin 0.70 AST 36 ALT 47 Alkaline Phosphatase 104 Total Protein 8.4 H Albumin 3.5 Globulin 4.9 H Albumin/Globulin Ratio 0.7 L Lipase 77 EKG Initial EKG: Comments: My independent interpretation of the patient's EKG done for mild tachycardia showed a sinus rhythm with overall rate of 90. No ventricular ectopy. No acute ST elevation or depression. ME interval QRS duration and QTc are normal. Discharge Plan Triage Chief Complaint: Nausea/Vomiting ED Provider: Vivek Courtney Dx/Rx/DC Orders Clinical Impression: Achalasia, Nausea & vomiting, Dehydration, mild Instructions: ED Vomiting (Adult) Prescriptions: New promethazine [Promethegan] 25 mg suppository 25 mg ME Q6H PRN PRN (Reason: Nausea) Qty: 12 0RF No Action omeprazole magnesium 2.5 mg susp,delayed release for recon 40 mg PO BID Qty: 30 0RF potassium chloride 40 mEq/15 mL liquid 40 meq PO ONCE Qty: 15 0RF lidocaine HCl [Lidocaine Viscous] 2 % solution 5 ml mucous membrane TID PRN (Reason: pain) Qty: 600 0RF Taltz Autoinjector 80 mg/mL auto-injector 80 mg subcut Q4W Label Comments: Now taking this instead of Cosentyx ondansetron 4 mg tablet,disintegrating 4 mg PO Q8H PRN (Reason: nausea and vomiting) Qty: 10 0RF Primary Care Provider: Perri Dunlap Referrals: Perri Dunlap MD [Primary Care Provider] - 3-5 Days if not improving Activity Restrictions/Additional Instructions: Follow-up with your cardiothoracic surgeon and gastroenterology personnel up at [facility]. Disposition Disposition: Home, Self Care
[2022-11-15 15:42] LABS: Absolute Lymphocyte Count 1.92 X10^3/uL (0.83-4.51); Basophil# 0.13 X10^3/uL; Basophil% 1.1 % (0-1); Eosinophils% 3.5 % (0-5); Hematocrit 45.6 % (37-47); Hemoglobin 15.3 g/dL (12.0-15.0); Lymphocyte # 1.92 X10^3/ul (0.83-4.51); Lymphocyte % 16.7 % (19-41); Mean Corp Hgb Conc 33.6 g/dL (32-36); Mean Corpuscular Volume 95.4 fL (81-99); Mean Platelet Vol. 12.4 fl (6.2-12.0); Monocyte# 1.02 X10^3/uL; Monocyte% 8.9 % (0-10); NRBC Flagged by Analyzer 0 % (0-5); Neutrophil # 8.01 X10^3/uL (2.7-7.7); Neutrophil % 69.5 % (47-70); Platelet Count 314 K/mm3 (150-450); RBC Distribution Width CV 12.4 % (11.6-14.6); RBC Distribution Width SD 43.2 fl (35.1-43.9); Red Blood Count 4.78 M/mm3 (4.2-5.4); White Blood Count 11.5 K/mm3 (4.4-11.0)
[2022-11-15] MEDS: Ondansetron 4 MG/2 ML Vial IV (15:44)
[2022-11-15] MEDS: 0.9% Normal Saline 1,000 ML 1000 ML IV (15:44)
[2022-11-15 16:20] LABS: ALB/GLOB Ratio 0.7 RATIO (0.9-2.4); AST(SGOT) 36 U/L (15-37); Alanine Aminotransfer ALT/SGPT 47 U/L (13-56); Albumin, Serum 3.5 g/dL (3.2-5.0); Alkaline Phosphatase 104 U/L (45-117); Anion Gap 9 (5-15); BUN 14 mg/dL (7-18); BUN/Creat Ratio 15.1 RATIO (10-20); Calcium,Total 9.9 mg/dL (8.5-10.1); Chloride 102 mmol/L (98-107); Creatinine, Serum 0.93 mg/dL (0.55-1.02); EST Glomerular Filtration Rate 68 mL/min (>60); Est Glom Filt Rate - Afr Amer 82 mL/min (>60); Estimated Creatinine Clearance 63.19 ml/min; Globulin 4.9 g/dL (2.2-4.2); Glucose 100 mg/dL (74-106); Lipase 77 U/L (73-393); Potassium 3.4 mmol/L (3.5-5.1); Protein, Total 8.4 g/dL (6.4-8.2); Sodium Level 137 mmol/L (136-145)
[2022-11-15 16:47] VITALS: BP 108/70; PULSE 85; RESP 17; O2SAT 97
[2022-11-15 17:41] VITALS: BP 104/69; PULSE 81; RESP 18; O2SAT 98
== END 2022-11-15 17:45 | disposition home or self-care (01) ==
PROVIDERS: Emergency Provider Emergency Medicine; PCP Internal Medicine; Visit Provider Emergency Medicine
DX: K22.0 Achalasia of cardia (principal); E86.0 Dehydration; Z87.891 Personal history of nicotine dependence; L40.9 Psoriasis, unspecified; R11.2 Nausea with vomiting, unspecified; Z79.899 Other long term (current) drug therapy; Z90.49 Acquired absence of other specified parts of digestive tract; Z90.710 Acquired absence of both cervix and uterus
CPT/HCPCS: 80053; 83690; 85025; 93005; 96361; 96374; 96375; 99283; J7030; A4216; J2405; J3490

== ENCOUNTER → 2023-01-10 | Outpatient (CLI) | payer MEDICAID, SELFPAY ==
[2023-01-10 15:19] LABS: Absolute Lymphocyte Count 2.43 X10^3/uL (0.83-4.51); Absolute Neutrophil Count 7.1 X10^3/uL (2.0-7.7); Basophil% 0.9 % (0-1); Eosinophil# 0.35 X10^3/uL; Eosinophils% 3.2 % (0-5); Hematocrit 42.6 % (37-47); Hemoglobin 13.6 g/dL (12.0-15.0); Lymphocyte # 2.43 X10^3/ul (0.83-4.51); Mean Corp Hgb Conc 31.9 g/dL (32-36); Mean Corpuscular Hgb 30.8 pg (27.0-32.0); Mean Corpuscular Volume 96.6 fL (81-99); Monocyte# 1.07 X10^3/uL; Monocyte% 9.7 % (0-10); NRBC Flagged by Analyzer 0 % (0-5); Neutrophil # 7.05 X10^3/uL (2.7-7.7); Neutrophil % 63.8 % (47-70); Platelet Count 311 K/mm3 (150-450); RBC Distribution Width CV 12.9 % (11.6-14.6); RBC Distribution Width SD 46.4 fl (35.1-43.9); Red Blood Count 4.41 M/mm3 (4.2-5.4)
[2023-01-10 15:47] LABS: Hemoglobin A1c 5.4 % (3.8-5.6)
[2023-01-10 15:54] LABS: Vitamin D,25 Hydroxy 26.8 ng/mL
[2023-01-10 15:58] LABS: ALB/GLOB Ratio 0.8 RATIO (0.9-2.4); AST(SGOT) 29 U/L (15-37); Alanine Aminotransfer ALT/SGPT 33 U/L (13-56); Albumin, Serum 3.6 g/dL (3.2-5.0); Alkaline Phosphatase 100 U/L (45-117); Anion Gap 4 (5-15); BUN 11 mg/dL (7-18); BUN/Creat Ratio 10.8 RATIO (10-20); Calcium,Total 9.7 mg/dL (8.5-10.1); Chloride 108 mmol/L (98-107); Creatinine, Serum 1.02 mg/dL (0.55-1.02); EST Glomerular Filtration Rate 61 mL/min (>60); Est Glom Filt Rate - Afr Amer 74 mL/min (>60); Globulin 4.4 g/dL (2.2-4.2); Glucose 92 mg/dL (74-106); Potassium 4.3 mmol/L (3.5-5.1); Sodium Level 138 mmol/L (136-145)
== END | disposition home or self-care (01) ==
PROVIDERS: PCP Internal Medicine; Visit Provider Internal Medicine
DX: K22.0 Achalasia of cardia (principal); R13.10 Dysphagia, unspecified; E55.9 Vitamin D deficiency, unspecified; R73.03 Prediabetes
CPT/HCPCS: 36415; 80053; 82306; 83036; 85025

== ENCOUNTER → 2023-02-02 | Outpatient (CLI) | payer MEDICAID, SELFPAY ==
[2023-02-04 19:07] LABS: Hepatitis B Core Ab Total Negative (Negative); QNTFERON TB Mitogen Value > 10.00 IU/mL (.); QNTFERON TB Nil Value 0 IU/mL (.); QNTFERON TB1+ Ag Value 0.01 IU/mL (.); QNTFERON TB2+ Ag Value 0.01 IU/mL (.); QNTIFERON TB Positive Criteria Negative (Negative)
== END | disposition home or self-care (01) ==
LOC: MTLAB 14:38
PROVIDERS: PCP Internal Medicine; Referring Provider Physician Assistant; Visit Provider Physician Assistant
DX: L40.0 Psoriasis vulgaris (principal); Z79.899 Other long term (current) drug therapy
CPT/HCPCS: 36415; 86480; 86704

== ENCOUNTER → 2023-03-03 | Outpatient (CLI) | payer MEDICAID, SELFPAY ==
--- NOTE | 2023-03-03 12:04 | BI_ITS ---
MAMMOGRAPHY - BILATERAL SCREENING REASON FOR EXAM: Female, 47 years old. Routine annual screening examination. PERTINENT HISTORY: Sister with breast cancer. Mother with breast cancer. TECHNIQUE: Digital bilateral breast wilmer (3D mammographic acquisition) in the CC and MLO projections. 2-D mediolateral oblique (MLO) and craniocaudad (CC) views of both breasts were obtained. CAD: Full Field Digital Mammography with Computer Added Detection was performed. COMPARISON: Comparison is made with prior study dated February 22, 2022 and June 07, 2019. FINDINGS: Breast Composition: The breasts are almost entirely fatty. There are no dominant masses or suspicious calcifications. Stable small benign appearing bilateral axillary lymph nodes. No other significant abnormalities are identified. There has been no significant change since the prior study. BI/SCRN MAMM (CAD)W/WILMER BILAT IMPRESSION: Stable bilateral screening mammogram. Yearly follow-up mammogram recommended. (A) ASSESSMENT CATEGORY: BIRADS Category 2: Benign. A letter regarding these results will be sent to the patient by the facility within 30 days. Approximately 10% of breast cancers are not detected by mammography. A normal mammogram should not delay biopsy of a clinically suspicious abnormality. [id number] Electronically Signed: Jourdan Odell MD at 12:41 EDT ,
== END | disposition home or self-care (01) ==
LOC: OPBI 12:03
PROVIDERS: PCP Internal Medicine; Referring Provider Internal Medicine; Visit Provider Internal Medicine
DX: Z12.31 Encounter for screening mammogram for malignant neoplasm of breast (principal); Z80.3 Family history of malignant neoplasm of breast
CPT/HCPCS: 77063; 77067

== ENCOUNTER 2023-03-06 18:33 | Observation (INO) | payer MEDICAID, SELFPAY ==
[2023-03-06 18:34] VITALS: BP 128/88; PULSE 117; RESP 16; TEMP 36.4; O2SAT 96; BMI 39.2
--- NOTE | 2023-03-06 18:39 | EX.ED.GENINJ ---
HPI History of Present Illness Chief Complaint: Nausea/Vomiting PFSH PFSH Medical History Achalasia Anxiety and depression Arthritis Environmental allergies Gallstones Migraines Post-menopausal Psoriasis Smoker Vitamin deficiency Wears glasses Home Medications ixekizumab 80 mg/mL subcutaneous auto-injector (Taltz Autoinjector) 80 mg subcut Q4W PSORIASIS 06/14/22 [History Last Taken Unknown] ondansetron 4 mg disintegrating tablet 4 mg PO Q8H PRN nausea and vomiting #10 tabs 10/15/22 [Rx Last Taken Unknown] diclofenac sodium 1 % topical gel 2 g topical DAILY #100 grams 01/10/23 [Rx Last Taken Unknown] omeprazole magnesium 2.5 mg oral suspension,delayed release 40 mg PO BID PRN 01/10/23 [History Last Taken Unknown] Allergy/AdvReac Type Severity Reaction Status Date / Time cat dander Allergy Intermediate Swelling Verified 03/06/23 18:34 cephalexin Allergy Hives Verified 03/06/23 18:34 Sulfa (Sulfonamide Allergy Hives Verified 03/06/23 18:34 Antibiotics) Family History Mother Breast cancer COPD (chronic obstructive pulmonary disease) Sister Breast cancer Brother Hypertension Diabetes Grandmother Diabetes Surgical History History of hysterectomy History of surgical procedure Hx of cholecystectomy Hx of laparoscopy Social History household members: family current occupational status: employed 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 occupation: works as an [employer]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[employer] Smoking Status: Former smoker quit date: 08/08/21 pack-years: 18 Electronic Cigarette Use: not used alcohol intake: current alcohol intake frequency: holidays/special occasions only substance use type: does not use do you feel safe at home: Yes EXAM Physical Exam Const Vital Signs: 03/06/23 18:34 Temperature 97.6 F L Temperature Source Temporal Pulse Rate 117 H Respiratory Rate 16 Blood Pressure 128/88 H Blood Pressure Mean 101 Pulse Ox 96 Oxygen Delivery Method Room Air MDM MDM MDM Narrative Medical decision making narrative: HISTORY OF PRESENT ILLNESS: 47-year-old female here with nausea vomiting dehydration. She states she has history of end-stage achalasia. She states she has had more than 6 episodes of nonbloody nonbilious vomitus today. Denies any abdominal pain. Think she may be dehydrated. Does note some chest discomfort as well. Denies any richie chest pain. Denies any shortness of breath. Denies any bleeding diathesis. The patient denies recent surgery in the last 4 weeks or immobilization in the last 3 days, denies previous diagnosis of DVT or PE, hemoptysis, unilateral leg swelling or malignancy with treatment the last 6 months. No estrogen use noted. Patient denies sudden onset of pain, no tearing sensation, no migratory symptoms, no new numbness, weakness or loss of sensation. Patient denies family history or personal history of Marfan syndrome or Clayton-Danlos. REVIEW OF SYSTEMS: Pertinent positives: Nausea vomiting, chest discomfort Pertinent negatives: Syncope, focal weakness, abdominal pain PHYSICAL EXAM: Nursing triage notes reviewed, Vital signs reviewed Constitutional: please see mdm HENT: MMM Eyes: Pupils equal round and reactive to light, Extraocular muscles intact Neck: No stridor, no JVD, full neck ROM Lungs: Clear to auscultation, No wheezing or rales. No increased work of breathing, no conversational dyspnea, no accessory muscle use, no nasal flaring. No respiratory distress noted Heart: Regular rate and rhythm, No murmurs, No rubs and No gallops, 2+ distal pulses (radial, femoral, posterior tibial) in all extremities Abdomen: Soft, there is no tenderness, rigidity, rebound or guarding, no obvious peritoneal signs, no palpable pulsatile abdominal masses, no auscultated abdominal bruit : No CVAT Extremities: No edema Neuro: No focal neurological deficits, cranial nerves II through XII intact, 5/5 strength in all extremities. Intact sensation to light touch in all extremities, 2+ reflexes bilateral patella tendons. Normal gait. No ataxia. Skin: No rash or lesions noted MEDICAL DECISION MAKING: Chief Complaint: Nausea vomiting, chest discomfort External records reviewed: CT scan of the chest and abdomen from 2022 shows abnormally fluid-filled dilatation of the stomach, no acute abnormality chest or abdomen mild to pack steatosis Factors affecting care: Achalasia Social determinants of health: Former smoker History obtained from others: The patient's mother Consults: Internal medicine ALL IMAGES (IF OBTAINED) HAVE BEEN PERSONALLY REVIEWED AND INTERPRETED BY MYSELF. EKG with sinus tachycardia, normal axis, no intervals, no STEMI. MDM Narrative: Patient was initially tachycardic (rate of 105) otherwise hemodynamically stable, afebrile and nontoxic-appearing. Abdominal exam I considered the following differential diagnosis: AAA, small bowel obstruction, abdominal perforation, appendicitis, pancreatitis, hepatobiliary pathology (acute cholecystitis), mesenteric ischemia, abnormalities such as ovarian pathology, PID. ACS, arrhythmia, anemia Patient abdominal exam was benign not consistent with acute surgical process. There are no peritoneal signs. I obtained a broad lab and imaging work-up to further elucidate etiology the patient's complaints. I gave 1 L normal saline, Zofran and Pepcid for symptomatic relief. Labs remarkable for leukocytosis suggestive of systemic inflammation likely secondary to vomiting. There is no significant acute kidney injury, e electrolyte abnormalities noted. No evidence of pancreatitis, hepatobiliary pathology or ACS. I suspect patient's symptoms are secondary to achalasia causing vomiting. P.o. challenge was initiated. Patient was unable to tolerate p.o. x2. Given the patient inability tolerate p.o. initial tachycardia concern for ongoing nausea vomiting and dehydration she was admitted to the hospital. Discussed with Dr. Fontenot. The patient and/or family, caregivers express understanding. The patient and/or family, caregivers agrees with the plan. Shared decision making: I will have a discussion with the patient and or visitors regarding risk/benefits of further testing or admission. They will be made aware of of the risk/benefits inherent in this decision they will be given the opportunity to voice understanding. Total critical care time today provided was at least 0 minutes. This excludes separately billable procedures. Critical care time (if documented) is secondary to the patient having high probability of clinically significant/life threatening deterioration in the patient's condition which required my urgent intervention. Lab Data Attestation: I reviewed the patient's lab results. Lab results narrative: CBC with leukocytosis suggestive of systemic summation, no significant anemia however there is hemoconcentration suggestive of dehydration, there is no thrombocytopenia BMP without significant electrolyte abnormalities, there is no anion gap to suggest endorgan hypoperfusion, there is no significant acute kidney injury there is some renal insufficiency noted likely secondary to dehydration from nausea vomiting LFTs show no evidence of hepatobiliary pathology. Troponin is negative, no evidence of myocardial ischemia Lipase is wnl indicating no pancreatic inflammation. Urine test is negative Labs: Laboratory Results - last 24 hr 03/06/23 19:07 WBC 12.2 H RBC 5.20 Hgb 16.3 H Hct 48.8 H MCV 93.8 MCH 31.3 MCHC 33.4 RDW Std Deviation 44.0 H RDW Coeff of Marisel 12.9 Plt Count 290 MPV 12.3 H Immature Gran % (Auto) 0.600 Neut % (Auto) 68.4 Lymph % (Auto) 18.4 L [place] % (Auto) 9.5 Eos % (Auto) 2.3 Baso % (Auto) 0.8 Absolute Neuts (auto) 8.3 H Absolute Lymphs (auto) 2.25 Nucleated RBC % 0 Sodium 139 Potassium 3.7 Chloride 107 Carbon Dioxide 23.0 Anion Gap 9 BUN 14 Creatinine 1.16 H Estim Creat Clear Calc 50.66 Est GFR (MDRD) Af Amer 64 Est GFR (MDRD) Non-Af 53 L BUN/Creatinine Ratio 12.1 Glucose 111 H Calcium 9.8 Total Bilirubin 0.60 Direct Bilirubin 0.22 AST 27 ALT 44 Alkaline Phosphatase 123 H Troponin I High Sens 6 Total Protein 8.5 H Albumin 3.8 Globulin 4.7 H Lipase 22 Serum , Qual NEGATIVE Discharge Plan Triage Chief Complaint: Nausea/Vomiting ED Provider: Jose Espinoza Dx/Rx/DC Orders Clinical Impression: Achalasia, Vomiting Prescriptions: No Action omeprazole magnesium 2.5 mg susp,delayed release for recon 40 mg PO BID PRN diclofenac sodium 1 % gel 2 g topical DAILY Qty: 100 0RF Rx Instructions: apply to single elbow, wrist or hand; for hand includes palm/fingers/back of hand El Autoinjector 80 mg/mL auto-injector 80 mg subcut Q4W Patient Comments: Now taking this instead of Cosentyx ondansetron 4 mg tablet,disintegrating 4 mg PO Q8H PRN (Reason: nausea and vomiting) Qty: 10 0RF Primary Care Provider: Perri Dunlap Referrals: Perri Dunlap MD [Primary Care Provider] - Disposition Disposition: Acute Care [facility]
--- NOTE | 2023-03-06 18:42 | EKG12_ITS ---
Test Reason : DYSRHYTHMIA Blood Pressure : / mmHG Vent. Rate : 105 BPM Atrial Rate : 105 BPM P-R Int : 130 ms QRS Dur : 076 ms QT Int : 336 ms P-R-T Axes : 056 060 019 degrees QTc Int : 444 ms Sinus tachycardia Otherwise normal ECG Confirmed by FRENCH GOODSON, CHARLETTE ([id number]), assistant film editor NICHOLAS BRUSH ([id number]) on 03/10/2023 8:42:49 AM Referred By: Maribel Fontenot Confirmed By:MITALI BRASWELL MD
[2023-03-06 19:15] LABS: Absolute Lymphocyte Count 2.25 X10^3/uL (0.83-4.51); Absolute Neutrophil Count 8.3 X10^3/uL (2.0-7.7); Basophil% 0.8 % (0-1); Eosinophil# 0.28 X10^3/uL; Eosinophils% 2.3 % (0-5); Hematocrit 48.8 % (37-47); Hemoglobin 16.3 g/dL (12.0-15.0); Lymphocyte # 2.25 X10^3/ul (0.83-4.51); Lymphocyte % 18.4 % (19-41); Mean Corp Hgb Conc 33.4 g/dL (32-36); Mean Corpuscular Hgb 31.3 pg (27.0-32.0); Mean Corpuscular Volume 93.8 fL (81-99); Mean Platelet Vol. 12.3 fl (6.2-12.0); Monocyte# 1.16 X10^3/uL; Monocyte% 9.5 % (0-10); NRBC Flagged by Analyzer 0 % (0-5); Neutrophil # 8.34 X10^3/uL (2.7-7.7); Neutrophil % 68.4 % (47-70); Platelet Count 290 K/mm3 (150-450); RBC Distribution Width CV 12.9 % (11.6-14.6); White Blood Count 12.2 K/mm3 (4.4-11.0)
[2023-03-06] MEDS: 0.9% Normal Saline 1,000 ML 1000 ML IV (19:17)
[2023-03-06] MEDS: Ondansetron 4 MG/2 ML Vial IV (19:17)
[2023-03-06] MEDS: Famotidine 200 MG/20 ML MDV 20 MG in 0.9% Normal Saline (Pres. free 8 ML 300 MG IV (19:18)
[2023-03-06 19:30] LABS: Internal QC Validated? YES +Cl - CLEAR BKGD; Pregnancy, Serum, hCG Quali. NEGATIVE Negative
[2023-03-06 19:35] LABS: AST(SGOT) 27 U/L (15-37); Alanine Aminotransfer ALT/SGPT 44 U/L (13-56); Albumin, Serum 3.8 g/dL (3.2-5.0); Alkaline Phosphatase 123 U/L (45-117); Anion Gap 9 (5-15); BUN 14 mg/dL (7-18); BUN/Creat Ratio 12.1 RATIO (10-20); Bilirubin, Direct 0.22 mg/dL (0.00-0.30); Calcium,Total 9.8 mg/dL (8.5-10.1); Chloride 107 mmol/L (98-107); Creatinine, Serum 1.16 mg/dL (0.55-1.02); EST Glomerular Filtration Rate 53 mL/min (>60); Est Glom Filt Rate - Afr Amer 64 mL/min (>60); Estimated Creatinine Clearance 50.66 ml/min; Globulin 4.7 g/dL (2.2-4.2); Glucose 111 mg/dL (74-106); Lipase 22 U/L (13-75); Potassium 3.7 mmol/L (3.5-5.1); Protein, Total 8.5 g/dL (6.4-8.2); Sodium Level 139 mmol/L (136-145); Troponin-I HS 6 pg/mL (3.0-54.0)
[2023-03-06] MEDS: Metoclopramide 10 MG/2 ML Vial 5 MG IV (20:43)
--- NOTE | 2023-03-06 22:20 | PCM.HP.STD ---
HPI - General General Date of Admission: 03/06/23 Date of Service: 03/06/23 Chief Complaint: Intractable nausea/emesis. HPI Narrative The patient is a 47 y/o F w/ PMHx: Morbid Obesity, Allergic Rhinitis, Former Tobacco use, Psoriatic arthritis, Anxiety and Depression, Prediabetes mellitus type II, Achalasia who presents to the [facility] ED on 03/06/23 with history of persistent intractable nausea and emesis with at least 6 episodes of nonbloody nonbilious emesis on day of presentation with no associated abdominal pain however she does note some pleuritic discomfort related with her bouts of emesis and given concerns for dehydration prompted eventual ED evaluation. She does report some mild chills however she denies them currently and denies any fevers. She denies any diarrhea. Of note she is following with [facility] for her achalasia with an unclear timeline and endoscopy with plan for future esophageal resection but this has not yet to be scheduled. From records patient is continue to lose weight. From records unfortunately patient is also only been taking omeprazole as needed instead of scheduled as she is supposed to. Work-up in the ED included T97.6, rate 117, BP 120/88, respiratory rate 16, 96% on room air, CBC with WBC 12.2, hemoglobin 16.3, platelet 290 with left shift, CMP with BUN/creatinine 14/1.16, glucose 111, alk phos 123 otherwise panic profile not marked appearing, lipase 22, serum negative, troponin 6. In the ED patient ministered 1 L normal saline, Phenergan 25 mg p.o. x1, pantoprazole 20 mg p.o. x1, Zofran 4 mg IV x1, Reglan 5 mg IV x1, famotidine 20 mg IV x1. [facility] Medical History Achalasia Anxiety and depression Arthritis Environmental allergies Gallstones Migraines Post-menopausal Psoriasis Smoker Vitamin deficiency Wears glasses Home Medications ixekizumab 80 mg/mL subcutaneous auto-injector (Taltz Autoinjector) 80 mg subcut Q4W PSORIASIS 06/14/22 [History Last Taken Unknown] diclofenac sodium 1 % topical gel 2 g topical DAILY #100 grams 01/10/23 [Rx Last Taken Unknown] Allergy/AdvReac Type Severity Reaction Status Date / Time cat dander Allergy Intermediate Swelling Verified 03/06/23 18:34 cephalexin Allergy Hives Verified 03/06/23 18:34 Sulfa (Sulfonamide Allergy Hives Verified 03/06/23 18:34 Antibiotics) Family History Mother Breast cancer COPD (chronic obstructive pulmonary disease) Sister Breast cancer Brother Hypertension Diabetes Grandmother Diabetes Surgical History History of hysterectomy History of surgical procedure Hx of cholecystectomy Hx of laparoscopy Social History household members: family current occupational status: employed 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 HEENT: Eyes: No visual loss, blurred vision, double vision or yellow sclerae. Ears, Nose, Throat: No hearing loss, sneezing, congestion, runny nose or sore throat. SKIN: No rash or itching, lesions, wounds. CARDIOVASCULAR: + Pleuritic discomfort of the chest following bouts of emesis. No palpitations, edema, orthopnea, syncopal events. RESPIRATORY: No shortness of breath, cough or sputum, wheezing, hemoptysis. GASTROINTESTINAL: + anorexia, nausea, vomiting. No diarrhea, abdominal pain, melena, BRBPR. GENITOURINARY: No dysuria, frequency, urgency or retention. NEUROLOGICAL: No headache, dizziness, syncope, paralysis, ataxia, numbness or tingling in the extremities, focal weakness, change in bowel or bladder control, seizure. MUSCULOSKELETAL: + muscle, back pain, joint pain or stiffness. HEMATOLOGIC: No anemia, bleeding or bruising. LYMPHATICS: No enlarged nodes. No history of splenectomy. PSYCHIATRIC: + history of depression or anxiety. ENDOCRINOLOGIC: No reports of sweating, cold or heat intolerance. No polyuria or polydipsia. ALLERGIES: + history of hives, rhinitis. Vital Signs Vital Signs Vital Signs: 03/06/23 18:34 Temperature 97.6 F L Temperature Source Temporal Pulse Rate 117 H Respiratory Rate 16 Blood Pressure 128/88 H Blood Pressure Mean 101 Pulse Ox 96 Oxygen Delivery Method Room Air Weight Weight: 228 lb 11.2 oz Body Mass Index (BMI) 39.2 Physical Exam Narrative Physical Examination: General: Awake, alert, oriented x 3 and cooperative, laying in the ED bed, fatigued, notes feeling mildly improved currently. Skin: Normal color, normal turgor, no icterus, no cyanosis. HEENT: AT/NC, EOMI, PERRLA, moderately dry MM, no carotid bruits or JVD noted. Lungs: CTA bilaterally, moderate effort, mild decrease BL bases, no rales, ronchi or wheezing. Heart: Mildly tachycardic with regular rhythm; no gallop, rub audible. Abdomen: Soft, NTTP, ND, hyperactive BS, no HSM. Extremities: No cyanosis, clubbing, or edema. Neurological: Patient awake, alert, oriented as noted, cognitive function intact; pupils equally reactive to light and accommodation, cranial nerves II-XII grossly normal, moving all 4 extremities, no focal deficits, strength mildly to moderately global decrease secondary to ongoing intractable nausea and emesis although currently feels mildly improved. Psychiatric: Affect appears flat, fatigued, no acute evidence of depressive or anxiety feelings but does have underlying history. Results Lab / Micro Data 03/06/23 19:07 03/06/23 19:07 Labs: Laboratory Results - last 24 hr 03/06/23 19:07: WBC 12.2 H, RBC 5.20, Hgb 16.3 H, Hct 48.8 H, MCV 93.8, MCH 31.3, MCHC 33.4, RDW Std Deviation 44.0 H, RDW Coeff of Marisel 12.9, Plt Count 290, MPV 12.3 H, Immature Gran % (Auto) 0.600, Neut % (Auto) 68.4, Lymph % (Auto) 18.4 L, [place] % (Auto) 9.5, Eos % (Auto) 2.3, Baso % (Auto) 0.8, Absolute Neuts (auto) 8.3 H, Absolute Lymphs (auto) 2.25, Nucleated RBC % 0, Sodium 139, Potassium 3.7, Chloride 107, Carbon Dioxide 23.0, Anion Gap 9, BUN 14, Creatinine 1.16 H, Estim Creat Clear Calc 50.66, Est GFR (MDRD) Af Amer 64, Est GFR (MDRD) Non-Af 53 L, BUN/Creatinine Ratio 12.1, Glucose 111 H, Calcium 9.8, Total Bilirubin 0.60, Direct Bilirubin 0.22, AST 27, ALT 44, Alkaline Phosphatase 123 H, Troponin I High Sens 6, Total Protein 8.5 H, Albumin 3.8, Globulin 4.7 H, Lipase 22, Serum , Qual NEGATIVE Assessment & Plan Assessment/Plan (1) Intractable nausea and vomiting: PLAN: Plan The patient is a 47 y/o F w/ PMHx: Morbid Obesity, Allergic Rhinitis, Former Tobacco use, Psoriatic arthritis, Anxiety and Depression, Prediabetes mellitus type II, Achalasia who presents to the [facility] ED on 03/06/23 with history of persistent intractable nausea and emesis with at least 6 episodes of nonbloody nonbilious emesis on day of presentation with no associated abdominal pain however she does note some pleuritic discomfort related with her bouts of emesis and given concerns for dehydration prompted eventual ED evaluation. #1. Intractable nausea and emesis, possible acute gastroenteritis versus component of her Achalasia, worsening: We will admit to medical surgical floor, if any onset of diarrhea certainly low threshold to obtain enteric and C. 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 If no obvious infectious etiology found may consider requesting GI consultation in case this is felt more likely her achalasia as could potentially consider EGD with injection LES, and if so then in the interim could consider SL isosorbide/or SL NG prior to meals. #2. Psoriatic arthritis: Patient noted to be on ixekizumab injections q 4 weeks, encourage continued outpatient evaluation/treatment per Rheumatology. #3. Morbid Obesity: Weight loss and lifestyle changes encouraged. #4. GERD: We will maintain IV PPI given intractable nausea and emesis. #5. Anxiety and depression: From prior records had previously been on antidepressant regimen, no current medication per current list but clarifying, encourage continued outpatient follow-up and evaluation for #6. Former Tobacco use: Encouraged continued tobacco cessation. #7. Allergic rhinitis: Not on chronic regimen per current list, clarifying. #8. Prediabetes mellitus type II: Recent 01/2023 hemoglobin A1c 5.4%, will defer Accu-Cheks and insulin sliding scale given well-controlled currently, encourage continued lifestyle and diet changes as especially her achalasia allows. #9. DVT prophylaxis: Low risk given observation admission. Charges/Coding Visit Charges Inpatient E&M: 73664 Init Hosp L2
[2023-03-06 22:57] VITALS: BP 128/82; PULSE 97; RESP 16; TEMP 36.4; O2SAT 95
[2023-03-06] MEDS: Haloperidol Lactate 5 MG/ML Vial 1 MG IV (23:02)
[2023-03-06 23:14] LABS: Magnesium 2.4 mg/dL (1.6-2.6); Phosphorus 3.8 mg/dL (2.5-4.9)
[2023-03-06 23:23] LABS: Procalcitonin 0.06 ng/mL (0.00-0.09)
[2023-03-06 23:56] VITALS: BMI 39.6
[2023-03-06 23:57] VITALS: BP 110/75; PULSE 98; RESP 18; TEMP 37; O2SAT 95
[2023-03-07] MEDS: Haloperidol Lactate 5 MG/ML Vial IV (01:19)
[2023-03-07] MEDS: 0.9% Normal Saline 1,000 ML 125 ML IV ×3 (01:23→18:40)
[2023-03-07 05:35] VITALS: BP 123/72; PULSE 96; RESP 16; TEMP 36.8; O2SAT 94
[2023-03-07 06:10] LABS: Absolute Neutrophil Count 8.4 X10^3/uL (2.0-7.7); Basophil# 0.12 X10^3/uL; Eosinophil# 0.34 X10^3/uL; Eosinophils% 2.7 % (0-5); Hematocrit 44.8 % (37-47); Hemoglobin 14.5 g/dL (12.0-15.0); Lymphocyte % 18.3 % (19-41); Mean Corp Hgb Conc 32.4 g/dL (32-36); Mean Corpuscular Hgb 30.7 pg (27.0-32.0); Mean Corpuscular Volume 94.9 fL (81-99); Mean Platelet Vol. 12.9 fl (6.2-12.0); Monocyte# 1.42 X10^3/uL; Monocyte% 11.3 % (0-10); NRBC Flagged by Analyzer 0 % (0-5); Neutrophil # 8.36 X10^3/uL (2.7-7.7); Neutrophil % 66.2 % (47-70); Platelet Count 272 K/mm3 (150-450); RBC Distribution Width CV 12.8 % (11.6-14.6); RBC Distribution Width SD 44.8 fl (35.1-43.9); Red Blood Count 4.72 M/mm3 (4.2-5.4); White Blood Count 12.6 K/mm3 (4.4-11.0)
[2023-03-07 06:46] LABS: ALB/GLOB Ratio 0.8 RATIO (0.9-2.4); AST(SGOT) 29 U/L (15-37); Alanine Aminotransfer ALT/SGPT 38 U/L (13-56); Albumin, Serum 3.3 g/dL (3.2-5.0); Alkaline Phosphatase 112 U/L (45-117); Anion Gap 9 (5-15); BUN 15 mg/dL (7-18); BUN/Creat Ratio 15.3 RATIO (10-20); Chloride 111 mmol/L (98-107); Creatinine, Serum 0.98 mg/dL (0.55-1.02); EST Glomerular Filtration Rate 64 mL/min (>60); Est Glom Filt Rate - Afr Amer 77 mL/min (>60); Estimated Creatinine Clearance 59.96 ml/min; Globulin 4.1 g/dL (2.2-4.2); Glucose 95 mg/dL (74-106); Potassium 3.4 mmol/L (3.5-5.1); Protein, Total 7.4 g/dL (6.4-8.2); Sodium Level 142 mmol/L (136-145)
[2023-03-07 07:40] VITALS: O2SAT 98
[2023-03-07 11:30] VITALS: BP 120/76; PULSE 89; RESP 18; TEMP 36.8; O2SAT 97
[2023-03-07] MEDS: Potassium Chloride 10mEq/100mL 10 MEQ/100 ML IV.SOLN. 100 MEQ IV BOLUS ×2 (12:10→15:03)
[2023-03-07] MEDS: Ensure Clear 120 ML Liquid PO (15:06)
--- NOTE | 2023-03-07 15:53 | PCM.PN.HOSP ---
Reason for Visit Reason for Visit: Diagnoses Nausea with vomiting, unspecified (03/06/23) Subjective Subjective Feeling better than last night, headache improved, some epigastric burning and regurgitated a little bit earlier but starting to feel better Objective Data Objective Data Vital Signs: Vital Signs Temp Pulse Resp BP Pulse Ox O2 Del Method 98.2 F 89 18 120/76 97 Room Air 03/07/23 11:30 03/07/23 11:30 03/07/23 11:30 03/07/23 11:30 03/07/23 11:30 03/07/23 11:30 Oxygen Delivery Method Room Air Weight: 104.7 kg Body Mass Index (BMI) 39.6 Intake & Output: Intake and Output for Last 24 Hours 03/05/23 03/06/23 03/07/23 23:59 23:59 23:59 Intake Total 1120 / 1320 1805.83 / 1805.83 Balance 1120 / 1320 1805.83 / 1805.83 Lab / Micro Data 03/07/23 05:10 03/07/23 05:10 Labs: Laboratory Results - last 24 hr 03/06/23 19:07: WBC 12.2 H, RBC 5.20, Hgb 16.3 H, Hct 48.8 H, MCV 93.8, MCH 31.3, MCHC 33.4, RDW Std Deviation 44.0 H, RDW Coeff of Marisel 12.9, Plt Count 290, MPV 12.3 H, Immature Gran % (Auto) 0.600, Neut % (Auto) 68.4, Lymph % (Auto) 18.4 L, [place] % (Auto) 9.5, Eos % (Auto) 2.3, Baso % (Auto) 0.8, Absolute Neuts (auto) 8.3 H, Absolute Lymphs (auto) 2.25, Nucleated RBC % 0, Sodium 139, Potassium 3.7, Chloride 107, Carbon Dioxide 23.0, Anion Gap 9, BUN 14, Creatinine 1.16 H, Estim Creat Clear Calc 50.66, Est GFR (MDRD) Af Amer 64, Est GFR (MDRD) Non-Af 53 L, BUN/Creatinine Ratio 12.1, Glucose 111 H, Calcium 9.8, Phosphorus 3.8, Magnesium 2.4, Total Bilirubin 0.60, Direct Bilirubin 0.22, AST 27, ALT 44, Alkaline Phosphatase 123 H, Troponin I High Sens 6, Total Protein 8.5 H, Albumin 3.8, Globulin 4.7 H, Lipase 22, Procalcitonin 0.06, Serum , Qual NEGATIVE 03/07/23 05:10: WBC 12.6 H, RBC 4.72, Hgb 14.5, Hct 44.8, MCV 94.9, MCH 30.7, MCHC 32.4, RDW Std Deviation 44.8 H, RDW Coeff of Marisel 12.8, Plt Count 272, MPV 12.9 H, Immature Gran % (Auto) 0.500, Neut % (Auto) 66.2, Lymph % (Auto) 18.3 L, [place] % (Auto) 11.3 H, Eos % (Auto) 2.7, Baso % (Auto) 1.0, Absolute Neuts (auto) 8.4 H, Absolute Lymphs (auto) 2.30, Nucleated RBC % 0, Sodium 142, Potassium 3.4 L, Chloride 111 H, Carbon Dioxide 22.0, Anion Gap 9, BUN 15, Creatinine 0.98, Estim Creat Clear Calc 59.96, Est GFR (MDRD) Af Amer 77, Est GFR (MDRD) Non-Af 64, BUN/Creatinine Ratio 15.3, Glucose 95, Calcium 9.0, Total Bilirubin 0.60, AST 29, ALT 38, Alkaline Phosphatase 112, Total Protein 7.4, Albumin 3.3, Globulin 4.1, Albumin/Globulin Ratio 0.8 L Micro: Microbiology 03/06/23 23:10 Mucosa - Nose Coronavirus COVID-19 PCR - Final 03/06/23 23:10 Mucosa - Nasopharyngeal Respiratory Panel (PCR) - Final Physical Exam Narrative General: Alert, oriented, no apparent distress HEENT: Atraumatic, normocephalic Eyes: Anicteric, normal conjunctiva, extraocular movements grossly intact Neck: Supple Respiratory: Clear to auscultation bilaterally, normal respiratory effort Cardiovascular: Regular rate and rhythm GI: Soft, nontender, nondistended Extremities: No edema Musculoskeletal: Moving all extremities Neuro: No overt focal neurological deficits Skin: No rashes appreciated Psych: Cooperative Assessment & Plan Assessment/Plan (1) Intractable nausea and vomiting: PLAN: Plan The patient is a 47 y/o F w/ PMHx: Morbid Obesity, Allergic Rhinitis, Former Tobacco use, Psoriatic arthritis, Anxiety and Depression, Prediabetes mellitus type II, Achalasia who presents to the [facility] ED on 03/06/23 with history of persistent intractable nausea and emesis with at least 6 episodes of nonbloody nonbilious emesis on day of presentation with no associated abdominal pain however she does note some pleuritic discomfort related with her bouts of emesis and given concerns for dehydration prompted eventual ED evaluation. #1. Intractable nausea and emesis, possible acute gastroenteritis versus component of her Achalasia, worsening: We will admit to medical surgical floor, if any onset of diarrhea certainly low threshold to obtain enteric and C. 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 If no obvious infectious etiology found may consider requesting GI consultation in case this is felt more likely her achalasia as could potentially consider EGD with injection LES, and if so then in the interim could consider SL isosorbide/or SL NG prior to meals. -03/07: Nausea and emesis improved with supportive care, no diarrhea or further nausea so low suspicion for gastroenteritis. Will advance to transitional diet patient indicated that she has not altered diet at home due to her achalasia so will reflect this in diet order, if patient tolerating may be able to DC tomorrow to follow-up with the [facility]. Continue PPI IV #2. Psoriatic arthritis: Patient noted to be on ixekizumab injections q 4 weeks, encourage continued outpatient evaluation/treatment per Rheumatology. -03/07: Continue supportive care #3. Morbid Obesity: Weight loss and lifestyle changes encouraged. #4. GERD: We will maintain IV PPI given intractable nausea and emesis. #5. Anxiety and depression: From prior records had previously been on antidepressant regimen, no current medication per current list but clarifying, encourage continued outpatient follow-up and evaluation for #6. Former Tobacco use: Encouraged continued tobacco cessation. #7. Allergic rhinitis: Not on chronic regimen per current list, clarifying. #8. Prediabetes mellitus type II: Recent 01/2023 hemoglobin A1c 5.4%, will defer Accu-Cheks and insulin sliding scale given well-controlled currently, encourage continued lifestyle and diet changes as especially her achalasia allows. #9. DVT prophylaxis: Low risk given observation admission. Time spent in the patient's overall evaluation,decision-making process, review of diagnostic data, adjustment of management, discussion with other providers, nursing nursing and ancillary staff involved in patient's care documentation, 36 minutes Charges/Coding Visit Charges Inpatient E&M: 83808 Subs Hosp L2
[2023-03-07] MEDS: Calcium Carbonate 500 MG Tablet PO (19:51)
[2023-03-07] MEDS: Mag Hydrox/Al Hydrox/Simeth 30 ML UDC PO (20:00)
[2023-03-07 20:05] VITALS: O2SAT 98
[2023-03-07 21:02] VITALS: BP 131/81; PULSE 90; RESP 16; TEMP 36.6; O2SAT 95
[2023-03-08 02:10] VITALS: BP 133/76; PULSE 87; RESP 16; TEMP 36.8; O2SAT 94
[2023-03-08] MEDS: 0.9% Normal Saline 1,000 ML 125 ML IV ×2 (02:13→09:56)
[2023-03-08] MEDS: Acetaminophen 650 MG/20 ML UDC PO ×2 (02:15→08:11)
[2023-03-08 06:05] LABS: Absolute Lymphocyte Count 2.27 X10^3/uL (0.83-4.51); Absolute Neutrophil Count 7.3 X10^3/uL (2.0-7.7); Basophil# 0.12 X10^3/uL; Basophil% 1.1 % (0-1); Eosinophil# 0.44 X10^3/uL; Eosinophils% 3.9 % (0-5); Hematocrit 39.9 % (37-47); Lymphocyte # 2.27 X10^3/ul (0.83-4.51); Lymphocyte % 20.3 % (19-41); Mean Corp Hgb Conc 32.6 g/dL (32-36); Mean Corpuscular Hgb 30.8 pg (27.0-32.0); Mean Corpuscular Volume 94.5 fL (81-99); Mean Platelet Vol. 12.4 fl (6.2-12.0); Monocyte# 1.02 X10^3/uL; Monocyte% 9.1 % (0-10); NRBC Flagged by Analyzer 0 % (0-5); Neutrophil # 7.25 X10^3/uL (2.7-7.7); Neutrophil % 65.1 % (47-70); Platelet Count 239 K/mm3 (150-450); RBC Distribution Width CV 12.5 % (11.6-14.6); RBC Distribution Width SD 43.8 fl (35.1-43.9); Red Blood Count 4.22 M/mm3 (4.2-5.4); White Blood Count 11.2 K/mm3 (4.4-11.0)
[2023-03-08 06:34] LABS: ALB/GLOB Ratio 0.8 RATIO (0.9-2.4); AST(SGOT) 21 U/L (15-37); Alanine Aminotransfer ALT/SGPT 30 U/L (13-56); Albumin, Serum 2.9 g/dL (3.2-5.0); Alkaline Phosphatase 95 U/L (45-117); Anion Gap 5 (5-15); BUN 7 mg/dL (7-18); BUN/Creat Ratio 10.2 RATIO (10-20); Calcium,Total 8.5 mg/dL (8.5-10.1); Chloride 110 mmol/L (98-107); Creatinine, Serum 0.68 mg/dL (0.55-1.02); EST Glomerular Filtration Rate 97 mL/min (>60); Est Glom Filt Rate - Afr Amer 118 mL/min (>60); Estimated Creatinine Clearance 86.42 ml/min; Globulin 3.6 g/dL (2.2-4.2); Glucose 80 mg/dL (74-106); Potassium 3.6 mmol/L (3.5-5.1); Protein, Total 6.5 g/dL (6.4-8.2); Sodium Level 138 mmol/L (136-145)
[2023-03-08 07:54] VITALS: O2SAT 95
[2023-03-08 08:10] VITALS: BP 150/90; PULSE 84; RESP 16; TEMP 36.6; O2SAT 96
--- NOTE | 2023-03-08 10:19 | PCM.DC ---
Discharge Instructions Diet Discharge Diet: - (Resume home diet of soft diet/blended foods) Activity Discharge Activity: Return to Normal Activity Follow Up Care Test Results: Test results from this visit will be discussed in further detail at your follow-up appointment, if applicable. Discharge Plan Admission Admit Date/Time: 03/06/23 22:29 Primary Reason for Your Visit: Nausea and vomiting Attending Provider: Galina Grullon Primary Care Provider: Perri Dunlap Consulting Providers: Maribel Fontenot Instructions Patient Instructions: ED Vomiting (Adult) Additional Instructions / Restrictions: DISCHARGE INSTRUCTIONS PLEASE READ *Please take this with you to your next doctors appointment* -Please continue following up with the [facility] for your esophageal problems -It was indicated that you have not been taking Prilosec, to help with GERD/reflux symptoms a prescription for famotidine oral suspension will be sent into preferred pharmacy on file -You have indicated MiraLAX at home, would recommend taking this daily until he resume regular bowel movements -Please call your primary care provider's office upon discharge to schedule a hospital follow up within 1 week. -For any concerning signs or symptoms please call 911 or proceed to the nearest emergency department Discharge Orders/Prescriptions Prescriptions: New famotidine 40 mg/5 mL (8 mg/mL) suspension 20 mg PO DAILY Qty: 50 0RF Continued diclofenac sodium 1 % gel 2 g topical DAILY Qty: 100 0RF Hold Instructions: pt doesn't use at this time Rx Instructions: apply to single elbow, wrist or hand; for hand includes palm/fingers/back of hand Taltz Autoinjector 80 mg/mL auto-injector 80 mg subcut Q4W Patient Comments: Now taking this instead of Cosentyx Discontinued Prilosec 10 mg susp,delayed release for recon Referrals / Follow Up: Perri Dunlap MD [Primary Care Provider] - Within 1 Week Disposition Disposition (needs filled in before D/C Order can be placed): Home, Self Care
[2023-03-08 10:23] VITALS: BP 128/77; PULSE 89; RESP 15; TEMP 36.9; O2SAT 97
--- NOTE | 2023-03-08 10:23 | DS.PCM_ITS ---
Providers Date of Admission: 03/06/23 Date of Discharge: 03/08/23 Primary Care Physician: Dr. Perri Dunlap MD Reason For Visit: INTRACTABLE N/V Diagnosis Discharge Diagnosis (1) Intractable nausea and vomiting: Status: Acute Code(s): R11.2 - Nausea with vomiting, unspecified Plan #intractable n/v- resolved #achalasia #Psoriatic arthritis #Morbid Obesity: Weight loss and lifestyle changes encouraged. #GERD #Anxiety and depression #Former Tobacco use #Allergic rhinitis #Prediabetes mellitus Medications at Discharge Home Medications ixekizumab 80 mg/mL subcutaneous auto-injector (Taltz Autoinjector) 80 mg subcut Q4W PSORIASIS 06/14/22 diclofenac sodium 1 % topical gel 2 g topical DAILY #100 grams 01/10/23 famotidine 40 mg/5 mL (8 mg/mL) oral suspension 20 mg (2.5 mL) PO DAILY #50 mL 03/08/23 Hospital Course Summary of Care Provided Minutes Spent on Discharge: 32 Hospital Course: The patient is a 47 y/o F w/ PMHx: Morbid Obesity, Allergic Rhinitis, Former Tobacco use, Psoriatic arthritis, Anxiety and Depression, Prediabetes mellitus type II, Achalasia who presents to the [facility] ED on 03/06/23 with history of p ersistent intractable nausea and emesis. She is known to have achalasia with plans for esophageal resection at [facility] which has not yet been scheduled. Overall lab work-up was unremarkable but given her intractable symptoms she was admitted and given IV fluids and supportive care with PPI IV and antiemetics. Patient quickly improved with resolution of headache, nausea, vomiting and was tolerating p.o.. She is not taking omeprazole as she is supposed to due to not liking the taste, given her need for soft and thin foods and medications famotidine oral suspension sent to pharmacy. Patient did report right before discharge that she was beginning to pass gas and said that she had not had a bowel movement in 4 days but said she has MiraLAX at home and is comfortable with discharge and taking MiraLAX to help normalize bowel movements. She did have some back pain earlier in the morning and had 1 episode of emesis but back pain resolved with Tylenol which she attributed to the bed and has had no nausea or emesis since then and overall feels fair and ready for discharge. No abdominal tenderness, no other acute complaints, back pain resolved as well. Discharge instructions as followed: -Please continue following up with the [facility] for your esophageal problems -It was indicated that you have not been taking Prilosec, to help with GERD/reflux symptoms a prescription for famotidine oral suspension will be sent into preferred pharmacy on file -You have indicated MiraLAX at home, would recommend taking this daily until he resume regular bowel movements -Please call your primary care provider's office upon discharge to schedule a hospital follow up within 1 week. -For any concerning signs or symptoms please call 911 or proceed to the nearest emergency department Physical Exam Narrative General: Alert, oriented, no apparent distress HEENT: Atraumatic, normocephalic Eyes: Anicteric, normal conjunctiva, extraocular movements grossly intact Neck: Supple Respiratory: Clear to auscultation bilaterally, normal respiratory effort Cardiovascular: Regular rate and rhythm GI: Soft, nontender, nondistended Extremities: No edema Musculoskeletal: Moving all extremities Neuro: No overt focal neurological deficits Skin: No rashes appreciated Psych: Cooperative Weight / BMI Weight Weight: 104.7 kg Body Mass Index (BMI) 39.6 ABG / Lab / Microbiology Data 03/08/23 04:51 03/08/23 04:51 Laboratory: Laboratory Results - last 24 hr 03/08/23 04:51: WBC 11.2 H, RBC 4.22, Hgb 13.0, Hct 39.9, MCV 94.5, MCH 30.8, MCHC 32.6, RDW Std Deviation 43.8, RDW Coeff of Marisel 12.5, Plt Count 239, MPV 12.4 H, Immature Gran % (Auto) 0.500, Neut % (Auto) 65.1, Lymph % (Auto) 20.3, [place] % (Auto) 9.1, Eos % (Auto) 3.9, Baso % (Auto) 1.1 H, Absolute Neuts (auto) 7.3, Absolute Lymphs (auto) 2.27, Nucleated RBC % 0, Sodium 138, Potassium 3.6, Chloride 110 H, Carbon Dioxide 23.0, Anion Gap 5, BUN 7, Creatinine 0.68, Estim Creat Clear Calc 86.42, Est GFR (MDRD) Af Amer 118, Est GFR (MDRD) Non-Af 97, BUN/Creatinine Ratio 10.2, Glucose 80, Calcium 8.5, Total Bilirubin 0.60, AST 21, ALT 30, Alkaline Phosphatase 95, Total Protein 6.5, Albumin 2.9 L, Globulin 3.6, Albumin/Globulin Ratio 0.8 L Microbiology: Microbiology 03/06/23 23:10 Mucosa - Nose Coronavirus COVID-19 PCR - Final 03/06/23 23:10 Mucosa - Nasopharyngeal Respiratory Panel (PCR) - Final D/C Instructions Discharge Diet: - (Resume home diet of soft diet/blended foods) Meaningful Use Info Meaningful Use Diagnoses (Choose all that apply): None applicable Discharge Plan Admission Admit Date/Time: 03/06/23 22:29 Primary Reason for Your Visit: Nausea and vomiting Attending Provider: Galina Grullon Primary Care Provider: Perri Dunlap Consulting Providers: Maribel Fotnenot Instructions Patient Instructions: ED Vomiting (Adult) Additional Instructions / Restrictions: DISCHARGE INSTRUCTIONS PLEASE READ *Please take this with you to your next doctors appointment* -Please continue following up with the [facility] for your esophageal problems -It was indicated that you have not been taking Prilosec, to help with GERD/reflux symptoms a prescription for famotidine oral suspension will be sent into preferred pharmacy on file -You have indicated MiraLAX at home, would recommend taking this daily until he resume regular bowel movements -Please call your primary care provider's office upon discharge to schedule a hospital follow up within 1 week. -For any concerning signs or symptoms please call 911 or proceed to the nearest emergency department Discharge Orders/Prescriptions Prescriptions: New famotidine 40 mg/5 mL (8 mg/mL) suspension 20 mg PO DAILY Qty: 50 0RF Continued diclofenac sodium 1 % gel 2 g topical DAILY Qty: 100 0RF Hold Instructions: pt doesn't use at this time Rx Instructions: apply to single elbow, wrist or hand; for hand includes palm/fingers/back of hand Taltz Autoinjector 80 mg/mL auto-injector 80 mg subcut Q4W Patient Comments: Now taking this instead of Cosentyx Discontinued Prilosec 10 mg susp,delayed release for recon Referrals / Follow Up: Perri Dunlap MD [Primary Care Provider] - Within 1 Week Disposition Disposition (needs filled in before D/C Order can be placed): Home, Self Care Charges/Coding Visit Charges Inpatient E&M: 01001 Disch Hosp >30min
== END 2023-03-08 11:40 | disposition home or self-care (01) ==
LOC: ED 22:52 → MS3 03-07 07:06
PROVIDERS: Admitting Provider Family Medicine; Emergency Provider Emergency Medicine; PCP Internal Medicine; Referring Provider Family Medicine; Visit Provider Internal Medicine
DX: R11.2 Nausea with vomiting, unspecified (principal); L40.50 Arthropathic psoriasis, unspecified; E66.01 Morbid (severe) obesity due to excess calories; R07.81 Pleurodynia; R07.89 Other chest pain; M54.9 Dorsalgia, unspecified; K22.0 Achalasia of cardia; Z87.891 Personal history of nicotine dependence; K21.9 Gastro-esophageal reflux disease without esophagitis; R73.03 Prediabetes; Z79.899 Other long term (current) drug therapy; Z68.39 Body mass index [BMI] 39.0-39.9, adult
CPT/HCPCS: 36415; 80048; 80053; 80076; 83690; 83735; 84100; 84145; 84484; 84703; 85025; 87633; 87635; 93005; 94668; 96361; 96365; 96366; 96367; 96375; 96376; 97802; 99221; 99284; J7030; A4216; G0378; J2405; J3490

== ENCOUNTER 2023-03-13 18:48 | Emergency (ER) | payer MEDICAID, SELFPAY ==
[2023-03-13 18:50] VITALS: BP 125/84; PULSE 122; RESP 16; TEMP 35.7; O2SAT 95; BMI 38.2
--- NOTE | 2023-03-13 19:06 | EDS_ITS ---
HPI <HARLAN Johnson - Last Filed: 03/13/23 20:40> History of Present Illness Chief Complaint: Nausea/Vomiting Narrative Narrative: 47-year-old female with longstanding history of achalasia. She states she was admitted about a week ago for intractable vomiting secondary to achalasia. She went home on a liquid diet and was fine for about 2 days until she started vomiting up all her food again shortly after eating. She does not really feel nauseous but just vomits. She has no real abdominal pain. She states she cannot keep Pepcid down and does not take the Zofran ODT because it causes her headaches and makes her constipated. She only had 1 bowel movement since her discharge but is passing gas. She states she sees a specialist at [facility] who is a thoracic surgeon. In the past she had a Heller myotomy which did not help her symptoms. They did an endoscopy and told her she is not a candidate for specialized POEM procedure and told her the next step would be an esophagectomy. PFSH <HARLAN Johnson - Last Filed: 03/13/23 20:40> [facility]LY [facility] Medical History Achalasia Anxiety and depression Arthritis Environmental allergies Gallstones Migraines Post-menopausal Psoriasis Smoker Vitamin deficiency Wears glasses Home Medications ixekizumab 80 mg/mL subcutaneous auto-injector (Taltz Autoinjector) 80 mg subcut Q4W PSORIASIS 06/14/22 [History Last Taken Unknown] diclofenac sodium 1 % topical gel 2 g topical DAILY #100 grams 01/10/23 [Rx Last Taken Unknown] famotidine 40 mg/5 mL (8 mg/mL) oral suspension 20 mg (2.5 mL) PO DAILY #50 mL 03/08/23 [Rx Last Taken Unknown] nystatin 100,000 unit/mL oral suspension 4 ml PO BID #100 mL 03/13/23 [Rx Last Taken Unknown] Allergy/AdvReac Type Severity Reaction Status Date / Time cat dander Allergy Intermediate Swelling Verified 03/13/23 19:40 cephalexin Allergy Hives Verified 03/13/23 19:40 Sulfa (Sulfonamide Allergy Hives Verified 03/13/23 19:40 Antibiotics) Family History Mother Breast cancer COPD (chronic obstructive pulmonary disease) Sister Breast cancer Brother Hypertension Diabetes Grandmother Diabetes Surgical History History of hysterectomy History of surgical procedure Hx of cholecystectomy Hx of laparoscopy Social History household members: family current occupational status: employed 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 CVS: Negative for chest pain. Respiratory: Negative for shortness of breath. GI: Positive for vomiting. Negative for abdominal pain : Negative for dysuria. EXAM <HARLAN Johnson - Last Filed: 03/13/23 20:40> Physical Exam Narrative Exam Narrative: CONST: Patient sitting in no acute distress. EYES: Normal inspection. ENT: Normal inspection, dry mucous membranes with white film on tongue. NECK: Normal inspection. RESP: No respiratory distress, CTAB. CVS: Regular rate and rhythm, no murmur, no gallop. ABD: Soft and nontender, no guarding or rebound, nondistended. SKIN: Color normal, no rash, warm, dry, intact. EXTREMITIES: Normal appearance, no pedal edema. NEURO: Oriented x4. PSYCH: Normal affect. Const Vital Signs: 03/13/23 18:50 03/13/23 19:41 03/13/23 20:26 Temperature 96.2 F L Temperature Source Temporal Pulse Rate 122 H 109 H 92 Respiratory Rate 16 18 18 Blood Pressure 125/84 H 113/73 122/74 H Blood Pressure Mean 97 86 90 Pulse Ox 95 94 96 Oxygen Delivery Method Room Air Room Air Room Air <Dr. Uriel Mathews MD - Last Filed: 03/13/23 19:17> Physical Exam Const Vital Signs: 03/13/23 18:50 03/13/23 19:41 03/13/23 20:26 Temperature 96.2 F L Temperature Source Temporal Pulse Rate 122 H 109 H 92 Respiratory Rate 16 18 18 Blood Pressure 125/84 H 113/73 122/74 H Blood Pressure Mean 97 86 90 Pulse Ox 95 94 96 Oxygen Delivery Method Room Air Room Air Room Air [facility] <HARLAN Johnson - Last Filed: 03/13/23 20:40> [facility] Narrative Medical decision making narrative: History gathered from: Patient and mother Patient has history of achalasia and states over the last couple days she has been vomiting. Had similar episode a week ago and was admitted. She appears well and nontoxic. Heart rate was in the 120s with otherwise normal vital signs. She has dry mucous membranes and signs of oral thrush. Her cardiopulmonary exam is normal. Abdomen is soft, nontender, nondistended. She is passing gas and I am no concern for obstruction. Her symptoms are consistent with her achalasia. She was given a liter of normal saline and Reglan. BMP shows no evidence of MELCHOR. After fluids her heart rate improved to the 80s to 90s. I do not think she needs admitted for this issue?she does not look ill or septic. She has Zofran at home she has not been using so I recommended she take this. She needs to follow-up with her specialists. I prescribed nystatin m outhwash and she was discharged in stable condition. I have personally performed a face to face assessment of the patient and have reviewed the WIL Note. I performed a substantive portion of the visit including all aspects of the following. My monte findings include: History is 47-year-old female known history of achalasia. Has been evaluated for that at the [facility]. They said when she is ready we will do a partial esophageal resection. Basely having nausea and vomiting. Similar episode a week ago. Denies any abdominal pain. No fever. Exam is [well-appearing middle-aged female. Vital signs are stable. She does not look septic or toxic. HEENT exam early thrush on her tongue. Minimally dry mucous membranes. Neck nontender. Trachea midline. Lungs are clear equal symmetrical. Heart regular rhythm rate about 110 no murmur. Abdomen is soft, nontender, nondistended normal bowel sounds no peritoneal signs. No obstruction. Moving all 4 extremities. Nontender no edema. She is awake alert.] Medical Decision Making [47-year-old nausea vomiting history of achalasia. She be treated with IV fluids, IV Zofran. Screening labs. She should be able be discharged home with outpatient follow-up.] Other additions or changes: [None] Lab Data Labs: Laboratory Results - last 24 hr 03/13/23 03/13/23 19:20 20:01 Sodium Cancelled 139 Potassium Cancelled 3.3 L Chloride Cancelled 104 Carbon Dioxide Cancelled 26.0 Anion Gap Cancelled 9 BUN Cancelled 17 Creatinine Cancelled 1.09 H Estim Creat Clear Calc Cancelled 53.91 Est GFR (MDRD) Af Amer Cancelled 69 Est GFR (MDRD) Non-Af Cancelled 57 L BUN/Creatinine Ratio Cancelled 15.6 Glucose Cancelled 116 H Calcium Cancelled 10.2 H <Dr. Uriel Mathews MD - Last Filed: 03/13/23 19:17> MDM MDM Narrative Medical decision making narrative: I have personally performed a face to face assessment of the patient and have reviewed the WIL Note. I performed a substantive portion of the visit including all aspects of the following. My monte findings include: History is 47-year-old female known history of achalasia. Has been evaluated for that at the [facility]. They said when she is ready we will do a partial esophageal resection. Basely having nausea and vomiting. Similar episode a week ago. Denies any abdominal pain. No fever. Exam is [well-appearing middle-aged female. Vital signs are stable. She does not look septic or toxic. HEENT exam early thrush on her tongue. Minimally dry mucous membranes. Neck nontender. Trachea midline. Lungs are clear equal symmetrical. Heart regular rhythm rate about 110 no murmur. Abdomen is soft, nontender, nondistended normal bowel sounds no peritoneal signs. No obstruction. Moving all 4 extremities. Nontender no edema. She is awake alert.] Medical Decision Making [47-year-old nausea vomiting history of achalasia. She be treated with IV fluids, IV Zofran. Screening labs. She should be able be discharged home with outpatient follow-up.] Other additions or changes: [None] History & Record Review Discussion w/independent historian: Patient and Family Lab Data Labs: Laboratory Results - last 24 hr 03/13/23 03/13/23 19:20 20:01 Sodium Cancelled 139 Potassium Cancelled 3.3 L Chloride Cancelled 104 Carbon Dioxide Cancelled 26.0 Anion Gap Cancelled 9 BUN Cancelled 17 Creatinine Cancelled 1.09 H Estim Creat Clear Calc Cancelled 53.91 Est GFR (MDRD) Af Amer Cancelled 69 Est GFR (MDRD) Non-Af Cancelled 57 L BUN/Creatinine Ratio Cancelled 15.6 Glucose Cancelled 116 H Calcium Cancelled 10.2 H Discharge Plan Triage Chief Complaint: Nausea/Vomiting ED Midlevel Provider: Serina Peterson ED Provider: Uriel Mathews Dx/Rx/DC Orders Clinical Impression: Delores, oral, Achalasia, Nausea and vomiting Instructions: Anatomy of the Digestive System, Delores Infection: Thrush Prescriptions: New nystatin 100,000 unit/mL suspension 4 ml PO BID Qty: 100 0RF Rx Instructions: Swish 4 ml in mouth and swallow No Action diclofenac sodium 1 % gel 2 g topical DAILY Qty: 100 0RF Hold Instructions: pt doesn't use at this time Rx Instructions: apply to single elbow, wrist or hand; for hand includes palm/fingers/back of hand famotidine 40 mg/5 mL (8 mg/mL) suspension 20 mg PO DAILY Qty: 50 0RF Taltz Autoinjector 80 mg/mL auto-injector 80 mg subcut Q4W Patient Comments: Now taking this instead of Cosentyx Primary Care Provider: Perri Dunlap Referrals: Perri Dunlap MD [Primary Care Provider] - Activity Restrictions/Additional Instructions: I prescribed nystatin mouthwash for the thrush. I recommend you follow-up with your specialist for achalasia and continue liquid only diet. Disposition Disposition: Home, Self Care
[2023-03-13 19:41] VITALS: BP 113/73; PULSE 109; RESP 18; O2SAT 94
[2023-03-13] MEDS: 0.9% Normal Saline 1,000 ML 999 ML IV (19:54)
[2023-03-13] MEDS: Metoclopramide 10 MG/2 ML Vial 5 MG IV (19:55)
[2023-03-13 20:23] LABS: Anion Gap 9 (5-15); BUN 17 mg/dL (7-18); BUN/Creat Ratio 15.6 RATIO (10-20); Calcium,Total 10.2 mg/dL (8.5-10.1); Chloride 104 mmol/L (98-107); Creatinine, Serum 1.09 mg/dL (0.55-1.02); EST Glomerular Filtration Rate 57 mL/min (>60); Est Glom Filt Rate - Afr Amer 69 mL/min (>60); Estimated Creatinine Clearance 53.91 ml/min; Glucose 116 mg/dL (74-106); Potassium 3.3 mmol/L (3.5-5.1); Sodium Level 139 mmol/L (136-145)
[2023-03-13 20:26] VITALS: BP 122/74; PULSE 92; RESP 18; O2SAT 96
[2023-03-13 21:18] VITALS: BP 123/85; PULSE 100; RESP 16; O2SAT 96
== END 2023-03-13 21:19 | disposition home or self-care (01) ==
PROVIDERS: Emergency Provider Emergency Medicine; PCP Internal Medicine; Visit Provider Emergency Medicine
DX: B37.0 Candidal stomatitis (principal); K22.0 Achalasia of cardia; F17.200 Nicotine dependence, unspecified, uncomplicated; Z98.890 Other specified postprocedural states; R11.2 Nausea with vomiting, unspecified
CPT/HCPCS: 80048; 96361; 96374; 99283; J7030; A4216

== ENCOUNTER → 2023-05-18 | Outpatient (CLI) | payer MEDICAID, SELFPAY ==
[2023-05-18 17:53] LABS: Bacteria 0 SEEN /hpf (None Seen); Mucous, Urine 0 SEEN /hpf (<or=2+); Red Blood Cells-Urine 0 SEEN /hpf (0-5)
[2023-05-18 18:13] LABS: Color, Urine Yellow (Yellow); Glucose, Dipstick Normal (Normal); Ketone-Dipstick Negative (Negative); Leukocyte Esterase-Dipstick 500 /ul (Negative); Nitrite-Dipstick Negative (Negative); Occult Blood-Urine 250 /ul (Negative); Protein-Dipstick 15 mg/dl (Negative); Urine Bilirubin Dipstick Negative (Negative); Urine Clarity Clear (Clear); Urine Urobilinogen Normal (Normal)
[2023-05-18 18:27] LABS: Squamous Epithelial Cells - UA 0-5 SEEN /hpf (5-10); White Blood Cells 5-10 SEEN /hpf (0-5)
== END | disposition home or self-care (01) ==
PROVIDERS: PCP Internal Medicine; Visit Provider Physician Assistant Surgical
DX: R30.0 Dysuria (principal)
CPT/HCPCS: 81001; 87086; 87088

== ENCOUNTER 2023-06-17 06:39 | Observation (INO) | payer MEDICAID, SELFPAY ==
[2023-06-17 06:40] VITALS: BP 122/61; PULSE 92; RESP 16; TEMP 36.6; O2SAT 99; BMI 35.1
--- NOTE | 2023-06-17 07:22 | EDS_ITS ---
HPI HPI - GI History of Present Illness Chief Complaint: Nausea/Vomiting Informant: patient Narrative Narrative: Patient states she has longstanding issues with achalasia and vomiting as a result. She follows with a specialist including clinic and has had some procedures on it in the past. She states for the past 10 days, she has been having trouble keeping any liquids down at all and is concerned about being dehydrated. She has some mild chest discomfort that feels like spasm at the time, radiates into her throat, but nowhere else. Same symptoms she has had with achalasia induced vomiting in the past. She denies any significant abdominal pain. No diarrhea, bright red blood per rectum, or melena. She states now even with drinking sips of water she is vomiting a little while later. She states she has lost weight in the past week and a half as a result of this. She has not talked to her specialist at [facility] since March. [facility] Medical History Achalasia Anxiety and depression Arthritis Environmental allergies Gallstones Migraines Post-menopausal Psoriasis Smoker Vitamin deficiency Wears glasses Home Medications ixekizumab 80 mg/mL subcutaneous auto-injector (Taltz Autoinjector) 80 mg subcut Q4W PSORIASIS 06/14/22 [History Last Taken Unknown] famotidine 40 mg/5 mL (8 mg/mL) oral suspension 20 mg (2.5 mL) PO DAILY #50 mL 03/08/23 [Rx Last Taken Unknown] Allergy/AdvReac Type Severity Reaction Status Date / Time cat dander Allergy Intermediate Swelling Verified 06/17/23 06:44 cephalexin Allergy Hives Verified 06/17/23 06:44 Sulfa (Sulfonamide Allergy Hives Verified 06/17/23 06:44 Antibiotics) Family History Mother Breast cancer COPD (chronic obstructive pulmonary disease) Sister Breast cancer Brother Hypertension Diabetes Grandmother Diabetes Surgical History History of hysterectomy History of surgical procedure Hx of cholecystectomy Hx of laparoscopy Social History household members: family current occupational status: employed 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 Smoking Status: Light Smoker (<10/day) Electronic Cigarette Use: not used alcohol intake: current alcohol intake frequency: holidays/special occasions only substance use type: does not use do you feel safe at home: Yes ROS ROS ED Constitutional Constitutional ED: Reports weight loss; Denies chills or fever(s) Eyes Eyes: Denies change in vision or diplopia ENT ENT ED: Denies rhinorrhea or sore throat Cardiovascular Cardiovascular: Reports as per HPI and chest pain; Denies lightheadedness, palpitations, radiating jaw, neck or arm pain or syncope Respiratory/Chest Respiratory/Chest: Denies cough or dyspnea Gastrointestinal Gastrointestinal: Reports vomiting; Denies abdominal pain, diarrhea or nausea Genitourinary Genitourinary ED: Denies dysuria or hematuria Musculoskeletal Musculoskeletal: Denies back pain or neck pain Integumentary Denies abscess or rash Neurologic Neurologic: Denies headache(s), paresthesias or weakness Psychiatric Psychiatric: Denies depression or suicidal thoughts EXAM Physical Exam Const Vital Signs: 06/17/23 06:40 06/17/23 10:40 06/17/23 10:40 Temperature 97.9 F Temperature Source Temporal Pulse Rate 92 68 68 Respiratory Rate 16 16 16 Blood Pressure 122/61 H 100/55 L 100/55 L Blood Pressure Mean 81 70 70 Pulse Ox 99 96 96 Oxygen Delivery Method Room Air Room Air Positive well nourished, well developed and obese General Appearance ED: well developed and NAD Nutritional Appearance: obese HEENT Reports moist mucous membranes normocephalic and atraumatic Eyes PERRL and EOMs intact bilaterally Neck full ROM and supple Resp normal respiratory effort and clear to auscultation bilaterally Cardio regular rate, regular rhythm and no murmurs Rate: Negative for tachycardic GI non-tender and non-distended Auscultation: normoactive bowel sounds Palpation: soft Back/Spine no CVA tenderness General Back: other FROM Extremity normal to inspection General Extremety ED: Negative for edema, pulses abnormal or tenderness General Extremity: Negative for edema or pulses abnormal Neuro oriented x3, CN's II-XII intact bilaterally and no sensory deficits noted Sensorium / Orientation: awake and alert Motor Exam: strength 5/5 throughout Psych mental status grossly normal and thought process normal Skin no rashes or lesions noted and no wounds MDM MDM MDM Narrative Medical decision making narrative: Who isLabs obtained, patient does have a mild nonspecific leukocytosis, and she is hypokalemic likely from all of the vomiting. She does not appear to be significantly dehydrated, however, surprisingly. Lipase within normal limits as expected. She was given IV fluids 2 L in addition to IV potassium replacement. Discussed with her, she follows with Dr. Hobbs is a cardiothoracic surgeon at [facility]. She does not follow with GI but states she has an appointment to see somebody with the [facility] system but has not yet. She states she is concerned about keeping things down. She has had flareups like this of her achalasia in the past, but never 1 that lasted this long. She is requesting a feeding tube. Initially discussed with GI Dr. Subramanian, he states that may be a reasonable thing to do for her, but admission to the hospital is recommended and consulting him for this, as well as dietary and other services that may be needed. Patient is amenable to this, discussed with hospitalist. Lab Data Attestation: I reviewed the patient's lab results. Labs: Laboratory Results - last 24 hr 06/17/23 07:20 WBC 14.4 H RBC 4.94 Hgb 15.6 H Hct 47.1 H MCV 95.3 MCH 31.6 MCHC 33.1 RDW Std Deviation 44.8 H RDW Coeff of Marisel 12.7 Plt Count 279 MPV 13.0 H Immature Gran % (Auto) 0.600 Neut % (Auto) 73.4 H Lymph % (Auto) 14.4 L [place] % (Auto) 7.8 Eos % (Auto) 2.8 Baso % (Auto) 1.0 Absolute Neuts (auto) 10.6 H Absolute Lymphs (auto) 2.07 Nucleated RBC % 0 Sodium 138 Potassium 3.1 L Chloride 104 Carbon Dioxide 31.0 Anion Gap 3 L BUN 11 Creatinine 1.01 Estim Creat Clear Calc 58.18 Est GFR (MDRD) Af Amer 75 Est GFR (MDRD) Non-Af 62 BUN/Creatinine Ratio 10.9 Glucose 97 Calcium 9.6 Lipase 29 Management Discussion w/another healthcare provider: Hospitalist and Director Of Career Resources (DANIEL subramanian) Discharge Plan Dx/Rx/DC Orders Clinical Impression: Intractable vomiting, Achalasia, Hypokalemia due to excessive gastrointestinal loss of potassium Disposition Disposition: Acute Care [facility]
[2023-06-17] MEDS: Ondansetron 4 MG/2 ML Vial IV (07:27)
[2023-06-17 07:33] LABS: Absolute Lymphocyte Count 2.07 X10^3/uL (0.83-4.51); Absolute Neutrophil Count 10.6 X10^3/uL (2.0-7.7); Basophil# 0.14 X10^3/uL; Eosinophils% 2.8 % (0-5); Hematocrit 47.1 % (37-47); Hemoglobin 15.6 g/dL (12.0-15.0); Lymphocyte # 2.07 X10^3/ul (0.83-4.51); Lymphocyte % 14.4 % (19-41); Mean Corp Hgb Conc 33.1 g/dL (32-36); Mean Corpuscular Hgb 31.6 pg (27.0-32.0); Mean Corpuscular Volume 95.3 fL (81-99); Monocyte# 1.12 X10^3/uL; Monocyte% 7.8 % (0-10); NRBC Flagged by Analyzer 0 % (0-5); Neutrophil # 10.55 X10^3/uL (2.7-7.7); Neutrophil % 73.4 % (47-70); Platelet Count 279 K/mm3 (150-450); RBC Distribution Width CV 12.7 % (11.6-14.6); RBC Distribution Width SD 44.8 fl (35.1-43.9); Red Blood Count 4.94 M/mm3 (4.2-5.4); White Blood Count 14.4 K/mm3 (4.4-11.0)
[2023-06-17] MEDS: 0.9% Normal Saline (1000mL) 1,000 ML 999 ML IV ×2 (07:37→08:02)
[2023-06-17 07:43] LABS: Anion Gap 3 (5-15); BUN 11 mg/dL (7-18); BUN/Creat Ratio 10.9 RATIO (10-20); Calcium,Total 9.6 mg/dL (8.5-10.1); Chloride 104 mmol/L (98-107); Creatinine, Serum 1.01 mg/dL (0.55-1.02); EST Glomerular Filtration Rate 62 mL/min (>60); Est Glom Filt Rate - Afr Amer 75 mL/min (>60); Estimated Creatinine Clearance 58.18 ml/min; Glucose 97 mg/dL (74-106); Lipase 29 U/L (13-75); Potassium 3.1 mmol/L (3.5-5.1); Sodium Level 138 mmol/L (136-145)
[2023-06-17] MEDS: Potassium Chloride 10mEq/100mL 10 MEQ/100 ML IV.SOLN. 100 MEQ IV BOLUS ×3 (09:10→15:40)
[2023-06-17 10:40] VITALS: BP 100/55; PULSE 68; RESP 16; O2SAT 96
--- NOTE | 2023-06-17 11:13 | HP.PCM.HOS_ITS ---
HPI - General General Date of Admission: 06/17/23 Date of Service: 06/17/23 Chief Complaint: Could not swallow, persistent vomiting, retching after swallowing even water. HPI Narrative ALEJANDRA SUMNER, is a 47 F with history of achalasia cardia for 20 years came to ED with persistent vomiting, retching and abdominal and mid chest discomfo rt/felt like a spasm with radiation to throat whenever she tries to swallow even water. This has been progressively worsening for 10 days. She states her vomiting after liquid food is reliable sometimes within 10 minutes and sometimes after 8 hours. If she does not try to swallow she is okay but she gets dehydrated. She has seen multiple physicians including thoracic surgeon Dr. RICHARDSON. Recently [facility] sales and production manager is not certain has reviewed her medical record but not seen physically referred to [facility] sales and production manager Dr. Gonzalez. She did not talk to any thoracic surgeon since March 2020 In ED, ER physician discussed with sales and production manager Dr. My valiente for putting a PEG tube for maintaining nutrition and hydration. [facility] Medical History Achalasia Anxiety and depression Arthritis Environmental allergies Gallstones Migraines Post-menopausal Psoriasis Smoker Vitamin deficiency Wears glasses Home Medications ixekizumab 80 mg/mL subcutaneous auto-injector (Taltz Autoinjector) 80 mg subcut Q4W PSORIASIS 06/14/22 [History Last Taken Unknown] famotidine 40 mg/5 mL (8 mg/mL) oral suspension 20 mg (2.5 mL) PO DAILY #50 mL 03/08/23 [Rx Last Taken Unknown] Allergy/AdvReac Type Severity Reaction Status Date / Time cat dander Allergy Intermediate Swelling Verified 06/17/23 06:44 cephalexin Allergy Hives Verified 06/17/23 06:44 Sulfa (Sulfonamide Allergy Hives Verified 06/17/23 06:44 Antibiotics) Family History Mother Breast cancer COPD (chronic obstructive pulmonary disease) Sister Breast cancer Brother Hypertension Diabetes Grandmother Diabetes Surgical History History of hysterectomy History of surgical procedure Hx of cholecystectomy Hx of laparoscopy Social History household members: family current occupational status: employed 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 No fever. HEENT: Reports systems reviewed and no addt'l complaints, except as documented Respiratory/Chest: No acute shortness of breath or respiratory distress or wheezing. CVS: As described in HPI. Gastrointestinal: Chronic dysphagia with exacerbations. Persistent vomiting. Denies coffee ground emesis, hematemesis or melena Genitourinary: Denies burning urination or new urinary tract symptoms Musculoskeletal: Denies acute joint pain or limited range of motion. No acute injury. History of arthritis. Neurologic: Denies seizure-like symptoms. skin: No ulcer. No rash Endocrinology: Reports systems reviewed and no addt'l complaints, except as documented Hematologic/Lymphatic: Reports systems reviewed and no addt'l complaints, except as documented Rest 14 ROS are negative except as mentioned in HPI Vital Signs Vital Signs Vital Signs: 06/17/23 06:40 06/17/23 10:40 06/17/23 10:40 Temperature 97.9 F Temperature Source Temporal Pulse Rate 92 68 68 Respiratory Rate 16 16 16 Blood Pressure 122/61 H 100/55 L 100/55 L Blood Pressure Mean 81 70 70 Pulse Ox 99 96 96 Oxygen Delivery Method Room Air Room Air Weight Weight: 204 lb 9.423 oz Body Mass Index (BMI) 35.1 Results Lab / Micro Data 06/17/23 07:20 06/17/23 07:20 Labs: Laboratory Results - last 24 hr 06/17/23 07:20: WBC 14.4 H, RBC 4.94, Hgb 15.6 H, Hct 47.1 H, MCV 95.3, MCH 31.6, MCHC 33.1, RDW Std Deviation 44.8 H, RDW Coeff of Marisel 12.7, Plt Count 279, MPV 13.0 H, Immature Gran % (Auto) 0.600, Neut % (Auto) 73.4 H, Lymph % (Auto) 14.4 L, [place] % (Auto) 7.8, Eos % (Auto) 2.8, Baso % (Auto) 1.0, Absolute Neuts (auto) 10.6 H, Absolute Lymphs (auto) 2.07, Nucleated RBC % 0, Sodium 138, Potassium 3.1 L, Chloride 104, Carbon Dioxide 31.0, Anion Gap 3 L, BUN 11, Creatinine 1.01, Estim Creat Clear Calc 58.18, Est GFR (MDRD) Af Amer 75, Est GFR (MDRD) Non-Af 62, BUN/Creatinine Ratio 10.9, Glucose 97, Calcium 9.6, Lipase 29 Assessment & Plan Assessment/Plan (1) Achalasia: (2) Intractable vomiting: PLAN: Plan 1. Acute exacerbation of esophageal spasm/dysphagia with history of chronic achalasia cardia: Patient is being admitted to [facility] floor. She is not able to have liquid or solid food or water by mouth as she vomits right after that. IV fluid D5 half NS for nutrition. Mild hypokalemia due to GI loss and getting replaced. GI consulted.Mild leukocytosis but seems chronic probably reactive from vomiting. Does not suspect infection. #2. Psoriatic arthritis: Patient noted to be on ixekizumab injections q 4 weeks, encourage continued outpatient evaluation/treatment per Rheumatology. #3. Morbid Obesity, grade 2: BMI 34.7 kg/m? weight loss and lifestyle changes encouraged. #4. GERD: Continue IV PPI. #5. Anxiety and depression: Currently patient not currently antianxiety or antidepression medication. Follow-up outpatient. #6. Former Tobacco use: Encouraged continued tobacco cessation. #8. Prediabetes mellitus type II: Previous 01/2023 hemoglobin A1c 5.4%, this time glucose 97 but in March 2023 glucose 160. #9. DVT prophylaxis: Enoxaparin 40 mg subcu daily Living will/advanced directive/end of life care: Patient does not have living will or advanced directive. Does not negative power of criminal defense attorney for health. After discussion of benefits/risks procedures involved with full code, DNR CC arrest and DNR CC, the patient opted for full code. Patient does want artificial life support including intubation, tube feed, ventilator and/chest compression, central venous catheter, vasopressor and DC shock if needed Total time spent in [id number] encounter in discussion of advanced directive 17 minutes. Charges/Coding Visit Charges Inpatient E&M: 22189 Init Hosp L3 Procedures Hospitalists Procedures: 06565 Advncd Care Plan 30 Min
[2023-06-17 12:00] VITALS: BP 92/77; O2SAT 97
[2023-06-17 13:03] VITALS: BP 92/60; PULSE 84; RESP 16; TEMP 36.7; O2SAT 96; BMI 34.6
[2023-06-17 13:04] LABS: Magnesium 2.6 mg/dL (1.6-2.6); Phosphorus 4.4 mg/dL (2.5-4.9)
[2023-06-17] MEDS: Enoxaparin 40 MG/0.4 ML Syringe SC (13:22)
[2023-06-17] MEDS: KCL 20MEQ in D5.45NS 20 MEQ/1,000 ML IV.SOLN. 50 MEQ IV (13:41)
[2023-06-17] MEDS: 0.9% Normal Saline (250mL Bag) 250 ML 15 ML IV (13:43)
[2023-06-17] MEDS: 0.9% Saline Lock 10 ML Syringe IV (13:43)
[2023-06-17 14:05] VITALS: BMI 34.6
[2023-06-17] MEDS: levoFLOXacin IV 500 MG/100 ML BAG 100 MG IV (15:44)
[2023-06-17 16:29] VITALS: BP 107/71; PULSE 86; RESP 16; TEMP 36.4; O2SAT 99
[2023-06-17] MEDS: Pantoprazole Sodium 40 MG in 0.9% Normal Saline (100mL MB+) 100 ML 330 MG IV (16:49)
--- NOTE | 2023-06-17 17:10 | DCINST_ITS ---
Discharge Instructions Diet Discharge Diet: Light diet - advance as tolerated (Liquid diet.) Activity Discharge Activity: Return to Normal Activity Weight Bearing Status: Weight bearing as tolerated Dressing / Incision Call your doctor if you observe: Fever of 101 or Higher, Coldness, Increased Pain, Numbness or Tingling, Change in Color, Inability to urinate, Inability to have a bowel movement, Using more than 1 pad per hour, Shortness of breath, Dizziness, Fainting spells, Swelling in the ankles, Chest pain, Prolonged hiccupping, Increased palpitations (irregular heartbeat) and Calf discomfort Follow Up Care When: IN 2 WEEKS Test Results: Test results from this visit will be discussed in further detail at your follow- up appointment, if applicable. Discharge Plan Admission Admit Date/Time: 06/17/23 11:06 Primary Reason for Your Visit: She had cardia with persistent vomiting. Attending Provider: Tom Cruz Primary Care Provider: Perri Dunlap Consulting Providers: Clarence Pepe Instructions Additional Instructions / Restrictions: Follow-up with the [facility] orthotics assistant Dr. Gonzalez. Follow-up thoracic surgeon Dr. Hobbs Discharge Orders/Prescriptions Prescriptions: New ondansetron 4 mg tablet,disintegrating 4 mg PO Q6H PRN (Reason: nausea and vomiting) Qty: 20 0RF Continued famotidine 40 mg/5 mL (8 mg/mL) suspension 20 mg PO DAILY Qty: 50 0RF Taltz Autoinjector 80 mg/mL auto-injector 80 mg subcut Q4W Patient Comments: Now taking this instead of Cosentyx Referrals / Follow Up: Perri Dunlap MD [Primary Care Provider] - Clarence Pepe DO [Med Staff - Active Staff] - Within 2 Weeks (For achalasia cardia.) Disposition Disposition (needs filled in before D/C Order can be placed): Home, Self Care
--- NOTE | 2023-06-17 17:11 | CON.PCM.GI_ITS ---
HPI Consult Data Date of Consult: 06/17/23 HPI Narrative Reason for Consultation: Achalasia HPI Narrative: ALEJANDRA SUMNER, is a 47 F who presents intractable nausea vomiting. She has a PMHx: Morbid Obesity, Allergic Rhinitis, Former Tobacco use, Psoriatic arthritis, Anxiety and Depression, Prediabetes mellitus type II, Achalasia. She presents to the [facility] ED on 03/06/23 with history of persistent intractable nausea and emesis with at least 6 episodes of nonbloody nonbilious emesis on day of presentation with no associated abdominal pain. However, she does note some pleuritic discomfort related with her bouts of emesis and given concerns for dehydration prompted eventual ED evaluation. She does report some mild chills however she denies them currently and denies any fevers. She denies any diarrhea. Of note she is following with [facility] [place] for her achalasia with an unclear timeline and endoscopy with plan for future esophageal resection but this has not yet to be scheduled. From records patient is continue to lose weight. From records unfortunately patient is also only been taking omeprazole as needed instead of scheduled as she is supposed to. Work-up in the ED included T97.6, rate 117, BP 120/88, respiratory rate 16, 96% on room air, CBC with WBC 12.2, hemoglobin 16.3, platelet 290 with left shift, CMP with BUN/creatinine 14/1.16, glucose 111, alk phos 123 otherwise panic profile not marked appearing, lipase 22, serum negative, troponin 6. In the ED patient ministered 1 L normal saline, Phenergan 25 mg p.o. x1, pantoprazole 20 mg p.o. x1, Zofran 4 mg IV x1, Reglan 5 mg IV x1, famotidine 20 mg IV x1. [facility] Medical History Achalasia Anxiety and depression Arthritis Environmental allergies Gallstones Migraines Post-menopausal Psoriasis Smoker Vitamin deficiency Wears glasses Home Medications ixekizumab 80 mg/mL subcutaneous auto-injector (Taltz Autoinjector) 80 mg subcut Q4W PSORIASIS 06/14/22 [History Last Taken Unknown] famotidine 40 mg/5 mL (8 mg/mL) oral suspension 20 mg (2.5 mL) PO DAILY #50 mL 03/08/23 [Rx Last Taken Unknown] ondansetron 4 mg disintegrating tablet 4 mg PO Q6H PRN nausea and vomiting #20 tabs 06/17/23 [Rx Last Taken Unknown] Allergy/AdvReac Type Severity Reaction Status Date / Time cat dander Allergy Intermediate Swelling Verified 06/17/23 06:44 cephalexin Allergy Hives Verified 06/17/23 06:44 Sulfa (Sulfonamide Allergy Hives Verified 06/17/23 06:44 Antibiotics) Family History Mother Breast cancer COPD (chronic obstructive pulmonary disease) Sister Breast cancer Brother Hypertension Diabetes Grandmother Diabetes Surgical History History of hysterectomy History of surgical procedure Hx of cholecystectomy Hx of laparoscopy Social History household members: family current occupational status: employed current occupation: works as an [employer] Smoking Status: Light Smoker (<10/day) Electronic Cigarette Use: not used alcohol intake: current alcohol intake frequency: holidays/special occasions only substance use type: does not use do you feel safe at home: Yes ROS ROS Narrative Constitutional: Reports fatigue and weakness. No fever. HEENT: Reports systems reviewed and no addt'l complaints, except as documented Respiratory/Chest: No acute shortness of breath or respiratory distress or wheezing. CVS: As described in HPI. Gastrointestinal: Chronic dysphagia with exacerbations. Persistent vomiting. Denies coffee ground emesis, hematemesis or melena Genitourinary: Denies burning urination or new urinary tract symptoms Musculoskeletal: Denies acute joint pain or limited range of motion. No acute injury. History of arthritis. Neurologic: Denies seizure-like symptoms. skin: No ulcer. No rash Endocrinology: Reports systems reviewed and no addt'l complaints, except as documented Hematologic/Lymphatic: Reports systems reviewed and no addt'l complaints, except as documented Rest 14 ROS are negative except as mentioned in HPI Physical Exam Narrative General: Alert, oriented, no apparent distress HEENT: Atraumatic, normocephalic Eyes: Anicteric, normal conjunctiva, extraocular movements grossly intact Neck: Supple Respiratory: Clear to auscultation bilaterally, normal respiratory effort Cardiovascular: Regular rate and rhythm GI: Soft, nontender, nondistended Extremities: No edema Musculoskeletal: Moving all extremities Neuro: No overt focal neurological deficits Skin: No rashes appreciated Psych: Cooperative Medical Records Data Medical Nutrition Assessment Dietitian: Malnutrition Criteria Met Start: 06/17/23 15:37 Freq: Status: Active Protocol: Document 06/17/23 15:49 AG (Rec: 06/17/23 15:49 AG [id number]) Nutrition Malnutrition Evidence of Malnutrition Exists Yes Malnutrition (severe): Chronic Evidenced By Weight Loss (Severe),Physical Changes (Severe) Clinical Problem Chronic Disease or Condition Related Malnutrition Etiology severe, chronic malnutrition related to inadequate energy intake d/t swallowing difficulty Signs/Symptoms as evidenced by unintentional 39.62kg/30% wt loss x 1 year, estimated PO intake meeting < 75% of estimated energy needs > 3 months Status Active Problem Recommendation Dietitian Recommendations/Changes If PEG placed, recommend 237mL bolus (1 carton) Jevity 1.5 5x/day via PEG w/ 100mL H2O flush before and after each bolus to provide 1775 calories , 75.5 g protein, and 1900mL total fluid/day. Lab / Micro Data 06/17/23 07:20 06/17/23 07:20 Labs: Laboratory Results - last 24 hr 06/17/23 07:20: WBC 14.4 H, RBC 4.94, Hgb 15.6 H, Hct 47.1 H, MCV 95.3, MCH 31.6, MCHC 33.1, RDW Std Deviation 44.8 H, RDW Coeff of Marisel 12.7, Plt Count 279, MPV 13.0 H, Immature Gran % (Auto) 0.600, Neut % (Auto) 73.4 H, Lymph % (Auto) 14.4 L, [place] % (Auto) 7.8, Eos % (Auto) 2.8, Baso % (Auto) 1.0, Absolute Neuts (auto) 10.6 H, Absolute Lymphs (auto) 2.07, Nucleated RBC % 0, Sodium 138, Potassium 3.1 L, Chloride 104, Carbon Dioxide 31.0, Anion Gap 3 L, BUN 11, Creatinine 1.01, Estim Creat Clear Calc 58.18, Est GFR (MDRD) Af Amer 75, Est GFR (MDRD) Non-Af 62, BUN/Creatinine Ratio 10.9, Glucose 97, Calcium 9.6, Phosphorus 4.4, Magnesium 2.6, Lipase 29 Assessment & Plan Assessment/Plan (1) Intractable nausea and vomiting: PLAN: Plan The patient is a 47 y/o F w/ PMHx: Morbid Obesity, Allergic Rhinitis, Former Tobacco use, Psoriatic arthritis, Anxiety and Depression, Prediabetes mellitus type II, Achalasia who presents to the [facility] ED on 03/06/23 with history of persistent intractable nausea and emesis with at least 6 episodes of nonbloody nonbilious emesis on day of presentation with no associated abdominal pain however she does note some pleuritic discomfort related with her bouts of emesis and given concerns for dehydration prompted eventual ED evaluation. Intractable nausea and emesis, possible acute gastroenteritis versus component of her Achalasia, worsening: - maintain on IV PPI, will have as needed antiemetics and given that she is used serial agents in the emergency room at this point will trial Haldol, allow clears only until clinically improving, will trend CBC, CMP, procalcitonin requested. She got a lot of IV fluids and feels a lot better. She does not want a feeding tube as suggested. She can follow-up as an outpatient for repeat manometry and possible Botox. In the interim could consider SL isosorbide/or SL NG prior to meals. Charges/Coding Visit Charges Inpatient E&M: 60112 Init Hosp L3
--- NOTE | 2023-06-17 17:13 | PCM.DC.SUM ---
Providers Date of Admission: 06/17/23 Date of Discharge: 06/17/23 Primary Care Physician: Dr. Perri Dunlap MD Consultations 06/17/23 12:55 Consult: Gastroenterology Routine Consulting Provider: Clarence Pepe Reason for Consult: achalasia, can't swallow/vomiting EMERGENT Consult: No MD Notified: Yes Date Notified: 06/17/23 Time Notified: 11:14 Method of Notification: ED Physician Initiated Reason For Visit: ACHALASIA, VONITING, CAN'T EAT Diagnosis Discharge Diagnosis (1) Achalasia: Status: Acute Code(s): K22.0 - Achalasia of cardia (2) Intractable vomiting: Status: Acute Code(s): R11.10 - Vomiting, unspecified Plan 1. Acute exacerbation of esophageal spasm/dysphagia with history of chronic achalasia cardia: Patient is being admitted to [facility] floor. She is not able to have liquid or solid food or water by mouth as she vomits right after that. IV fluid D5 half NS for nutrition. Mild hypokalemia due to GI loss and getting replaced. GI consulted.Mild leukocytosis but seems chronic probably reactive from vomiting. Does not suspect infection. 06/17: Around 5 PM patient wants to go home. Patient says vomiting is much improved. She will follow-up with GI as an outpatient. Follow-up in GI clinic in 2 weeks or follow-up with [facility] visitor services specialist Dr. Gonzalez and thoracic surgeon Dr. Hobbs. Prescription for Zofran sent to patient's preferred pharmacy. #2. Psoriatic arthritis: Patient noted to be on ixekizumab injections q 4 weeks, encourage continued outpatient evaluation/treatment per Rheumatology. #3. Morbid Obesity, grade 2: BMI 34.7 kg/m? weight loss and lifestyle changes encouraged. #4. GERD: Continue IV PPI. #5. Anxiety and depression: Currently patient not currently antianxiety or antidepression medication. Follow-up outpatient. #6. Former Tobacco use: Encouraged continued tobacco cessation. #8. Prediabetes mellitus type II: Previous 01/2023 hemoglobin A1c 5.4%, this time glucose 97 but in March 2023 glucose 160. #9. DVT prophylaxis: Enoxaparin 40 mg subcu daily Discharge medication reconciliation done. Discharge follow-up instructions completed. Discharge process discussed with the patient and all questions were answered to patient's satisfaction. Follow with PCP in 1 to 2 weeks Total time spent, exact 35 minutes on discharge meds reconciliation, examination, coordination of care with nurses and ancillary staff, review of imaging and blood test and discussion with the patient on follow-up instructions. Living will/advanced directive/end of life care: Patient does not have living will or advanced directive. Does not negative power of research attorney for health. After discussion of benefits/risks procedures involved with full code, DNR CC arrest and DNR CC, the patient opted for full code. Patient does want artificial life support including intubation, tube feed, ventilator and/chest compression, central venous catheter, vasopressor and DC shock if needed Medications at Discharge Home Medications ixekizumab 80 mg/mL subcutaneous auto-injector (Taltz Autoinjector) 80 mg subcut Q4W PSORIASIS 06/14/22 famotidine 40 mg/5 mL (8 mg/mL) oral suspension 20 mg (2.5 mL) PO DAILY #50 mL 03/08/23 ondansetron 4 mg disintegrating tablet 4 mg PO Q6H PRN nausea and vomiting #20 tabs 06/17/23 Physical Exam Narrative Please see H&P for further detail findings Patient vomiting has improved. Advised to ice water to clear liquid and proceed gradually. Medical Records Data Medical Nutrition Assessment Dietitian: Malnutrition Criteria Met Start: 06/17/23 15:37 Freq: Status: Active Protocol: Document 06/17/23 15:49 AG (Rec: 06/17/23 15:49 AG [id number]) Nutrition Malnutrition Evidence of Malnutrition Exists Yes Malnutrition (severe): Chronic Evidenced By Weight Loss (Severe),Physical Changes (Severe) Clinical Problem Chronic Disease or Condition Related Malnutrition Etiology severe, chronic malnutrition related to inadequate energy intake d/t swallowing difficulty Signs/Symptoms as evidenced by unintentional 39.62kg/30% wt loss x 1 year, estimated PO intake meeting < 75% of estimated energy needs > 3 months Status Active Problem Recommendation Dietitian Recommendations/Changes If PEG placed, recommend 237mL bolus (1 carton) Jevity 1.5 5x/day via PEG w/ 100mL H2O flush before and after each bolus to provide 1775 calories , 75.5 g protein, and 1900mL total fluid/day. Weight / BMI Weight Weight: 201 lb 14.389 oz Body Mass Index (BMI) 34.6 ABG / Lab / Microbiology Data 06/17/23 07:20 06/17/23 07:20 Laboratory: Laboratory Results - last 24 hr 06/17/23 07:20: WBC 14.4 H, RBC 4.94, Hgb 15.6 H, Hct 47.1 H, MCV 95.3, MCH 31.6, MCHC 33.1, RDW Std Deviation 44.8 H, RDW Coeff of Marisel 12.7, Plt Count 279, MPV 13.0 H, Immature Gran % (Auto) 0.600, Neut % (Auto) 73.4 H, Lymph % (Auto) 14.4 L, [place] % (Auto) 7.8, Eos % (Auto) 2.8, Baso % (Auto) 1.0, Absolute Neuts (auto) 10.6 H, Absolute Lymphs (auto) 2.07, Nucleated RBC % 0, Sodium 138, Potassium 3.1 L, Chloride 104, Carbon Dioxide 31.0, Anion Gap 3 L, BUN 11, Creatinine 1.01, Estim Creat Clear Calc 58.18, Est GFR (MDRD) Af Amer 75, Est GFR (MDRD) Non-Af 62, BUN/Creatinine Ratio 10.9, Glucose 97, Calcium 9.6, Phosphorus 4.4, Magnesium 2.6, Lipase 29 D/C Instructions Discharge Diet: Light diet - advance as tolerated (Liquid diet.) Weight Bearing Status: Weight bearing as tolerated Call your doctor if you observe: Fever of 101 or Higher, Coldness, Increased Pain, Numbness or Tingling, Change in Color, Inability to urinate, Inability to have a bowel movement, Using more than 1 pad per hour, Shortness of breath, Dizziness, Fainting spells, Swelling in the ankles, Chest pain, Prolonged hiccupping, Increased palpitations (irregular heartbeat) and Calf discomfort When: IN 2 WEEKS Meaningful Use Info Meaningful Use Diagnoses (Choose all that apply): None applicable Discharge Plan Admission Admit Date/Time: 06/17/23 11:06 Primary Reason for Your Visit: She had cardia with persistent vomiting. Attending Provider: Tom Cruz Primary Care Provider: Perri Dunlap Consulting Providers: Clarence Pepe Instructions Additional Instructions / Restrictions: Follow-up with the [facility] visitor services specialist Dr. Gonzalez. Follow-up thoracic surgeon Dr. Hobbs Discharge Orders/Prescriptions Prescriptions: New ondansetron 4 mg tablet,disintegrating 4 mg PO Q6H PRN (Reason: nausea and vomiting) Qty: 20 0RF Continued famotidine 40 mg/5 mL (8 mg/mL) suspension 20 mg PO DAILY Qty: 50 0RF Taltz Autoinjector 80 mg/mL auto-injector 80 mg subcut Q4W Patient Comments: Now taking this instead of Cosentyx Referrals / Follow Up: Perri Dunlap MD [Primary Care Provider] - FriendClarence DO [Med Staff - Active Staff] - Within 2 Weeks (For achalasia cardia.) Disposition Disposition (needs filled in before D/C Order can be placed): Home, Self Care Charges/Coding Visit Charges Inpatient E&M: 27346 Disch Hosp >30min
== END 2023-06-17 18:04 | disposition home or self-care (01) ==
LOC: ED 10:55 → MS3 14:06
PROVIDERS: Admitting Provider Internal Medicine; Emergency Provider Emergency Medicine; PCP Internal Medicine; Visit Provider Internal Medicine
DX: K22.0 Achalasia of cardia (principal); L40.50 Arthropathic psoriasis, unspecified; E66.01 Morbid (severe) obesity due to excess calories; E87.6 Hypokalemia; J30.9 Allergic rhinitis, unspecified; F17.200 Nicotine dependence, unspecified, uncomplicated; Z79.899 Other long term (current) drug therapy; Z68.35 Body mass index [BMI] 35.0-35.9, adult; K21.9 Gastro-esophageal reflux disease without esophagitis; R73.03 Prediabetes
CPT/HCPCS: 80048; 83690; 83735; 84100; 85025; 96365; 96366; 96367; 96368; 96372; 96375; 97802; 99284; J7030; J7050; A4216; J2405

== ENCOUNTER → 2023-10-27 | Outpatient (CLI) | payer MEDICAID, SELFPAY ==
[2023-10-29 19:08] LABS: Hepatitis B Core Ab Total Negative (Negative); QNTFERON TB Mitogen Value > 10.00 IU/mL (.); QNTFERON TB Nil Value 0 IU/mL (.); QNTFERON TB1+ Ag Value 0.02 IU/mL (.); QNTFERON TB2+ Ag Value 0.05 IU/mL (.); QNTIFERON TB Positive Criteria Negative (Negative)
== END | disposition home or self-care (01) ==
LOC: MTLAB 10:30
PROVIDERS: PCP Internal Medicine; Referring Provider Physician Assistant; Visit Provider Physician Assistant
DX: L40.0 Psoriasis vulgaris (principal); Z79.899 Other long term (current) drug therapy; L30.9 Dermatitis, unspecified
CPT/HCPCS: 36415; 86480; 86704

== ENCOUNTER 2024-01-26 15:13 | Emergency (ER) | payer MEDICAID, SELFPAY ==
[2024-01-26 15:14] VITALS: BP 121/76; PULSE 107; RESP 16; TEMP 36.4; O2SAT 98; BMI 32.5
[2024-01-26 15:16] VITALS: BP 121/76; PULSE 107; RESP 16; TEMP 36.4; O2SAT 98
[2024-01-26 16:02] LABS: Absolute Lymphocyte Count 2.04 X10^3/uL (0.83-4.51); Absolute Neutrophil Count 10.1 X10^3/uL (2.0-7.7); Basophil% 0.7 % (0-1); Eosinophil# 0.27 X10^3/uL; Hematocrit 45.6 % (37-47); Lymphocyte # 2.04 X10^3/ul (0.83-4.51); Mean Corp Hgb Conc 32.9 g/dL (32-36); Mean Corpuscular Hgb 31.6 pg (27.0-32.0); Mean Platelet Vol. 12.1 fl (6.2-12.0); Monocyte# 1.03 X10^3/uL; Monocyte% 7.6 % (0-10); NRBC Flagged by Analyzer 0 % (0-5); Neutrophil # 10.09 X10^3/uL (2.7-7.7); Neutrophil % 74.1 % (47-70); Platelet Count 295 K/mm3 (150-450); RBC Distribution Width CV 12.4 % (11.6-14.6); RBC Distribution Width SD 43.9 fl (35.1-43.9); Red Blood Count 4.75 M/mm3 (4.2-5.4); White Blood Count 13.6 K/mm3 (4.4-11.0)
--- NOTE | 2024-01-26 16:05 | EDS_ITS ---
HPI <PADMINI Mcdonough - Last Filed: 01/26/24 18:28> History of Present Illness Chief Complaint: Nausea/Vomiting Narrative Narrative: Patient is a 48-year-old female with history of achalasia, obesity, migraines who presents to the emergency department for multiple complaints. Patient states that she believes she is having an achalasia episode where she has been vomiting for the last 5 days. She states she is unable to keep anything down. She states she does come to the ER for this usually and she gets fluids and nausea medicine. She also is complaining of some vaginal itching as well as some vaginal odor and she is concerned. And she would like a pelvic exam. Patient is monogamous for the last year. Patient denies any dysuria. She states there is a foul odor.. Denies any fever or chills. Denies any specific abdominal pain. PFSH <PADMINI Mcdonough - Last Filed: 01/26/24 18:28> [facility] Medical History Achalasia Anxiety and depression Arthritis Environmental allergies Gallstones Migraines Post-menopausal Psoriasis Smoker Vitamin deficiency Wears glasses Home Medications ?Medication ?Instructions ?Recorded ?Last Taken ?Type ixekizumab 80 mg/mL subcutaneous 80 mg subcut Q4W PSORIASIS 06/14/22 Unknown History auto-injector (Taltz Autoinjector) famotidine 40 mg/5 mL (8 mg/mL) 20 mg (2.5 mL) PO DAILY #50 mL 03/08/23 Unknown Rx oral suspension ondansetron 4 mg disintegrating 4 mg PO Q6H PRN nausea and 06/17/23 Unknown Rx tablet vomiting #20 tabs metronidazole 500 mg tablet 500 mg PO BID 7 days #14 tabs 01/26/24 Unknown Rx ondansetron 4 mg disintegrating 4 mg PO Q8H PRN PRN Nausea #10 tabs 01/26/24 Unknown Rx tablet Allergy/AdvReac Type Severity Reaction Status Date / Time cat dander Allergy Intermediate Swelling Verified 01/26/24 15:16 cephalexin Allergy Hives Verified 01/26/24 15:16 Sulfa (Sulfonamide Allergy Hives Verified 01/26/24 15:16 Antibiotics) Family History Mother Breast cancer COPD (chronic obstructive pulmonary disease) Sister Breast cancer Brother Hypertension Diabetes Grandmother Diabetes Surgical History History of hysterectomy History of surgical procedure Hx of cholecystectomy Hx of laparoscopy Social History household members: family current occupational status: employed 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 Smoking Status: Light Smoker (<10/day) Electronic Cigarette Use: not used alcohol intake: current alcohol intake frequency: holidays/special occasions only substance use type: does not use do you feel safe at home: Yes ROS <PADMINI Mcdonough - Last Filed: 01/26/24 18:28> ROS ED ROS Narrative Constitutional: Negative for fever, chills, weight loss, weakness Eyes: Negative for vision loss, vision change, double vision ENT: Negative for any sore throat, ear pain, congestion Cardiovascular: Negative for any chest pain, tightness, palpitations Respiratory: Negative for any cough, sputum production, hemoptysis, dyspnea, dyspnea on exertion, orthopnea Gastrointestinal: Negative for any abdominal pain, diarrhea, constipation, blood in stool, blood in vomit. Positive for nausea and vomiting : Negative for any urinary frequency, dysuria, retention, blood in urine. Positive vaginal discharge vaginal odor Muscle skeletal: Negative for any neck pain, back pain Neurological: Negative for any headache, syncope, dizziness Skin: Negative for any rashes, itching, abrasions, lacerations Psychiatric: Negative for any depression, anxiety, stress, suicidal ideation, homicidal ideation Hematologic: Negative for any excessive bruising, easy bleeding EXAM <PADMINI Mcdonough - Last Filed: 01/26/24 18:28> Physical Exam Narrative Exam Narrative: Vital signs reviewed. HEET: Head normocephalic atraumatic, TMs clear bilaterally. Posterior pharynx is clear, moist mucous membranes. Nares clear bilaterally. Neck: Supple with no lymphadenopathy or tenderness. No signs of meningismus. Cardiac: Regular rate and rhythm no murmurs gallops or rubs, equal peripheral pulses bilaterally. Respiratory: Lungs clear to auscultation bilaterally. No chest tenderness. Abdomen: Soft, nontender, nondistended. No abdominal bruit or pulsatile masses. No hepatosplenomegaly Extremities: No peripheral edema, no signs of gross trauma or deformity. Active full range of motion of all extremities. Neuro: Cranial nerves II through XII intact, no focal neurological deficits. Skin: Clean dry and intact with no rash, purpura, petechiae, vesicles or pustules. Backs/flank: No CVA tenderness, no midline spinal tenderness, no deformity. Psych: Normal mood and affect. No SI, HI or acute psychosis. Vaginal: Pelvic exam was completed with Louisa ADHIKARI. Patient did have minimal amount of white discharge, there was some foul odor. No herpetic lesions, no lesions to the internal vaginal canal, patient did have a hysterectomy 5 years ago. Const Vital Signs: 01/26/24 15:14 01/26/24 15:16 01/26/24 16:46 Temperature 97.6 F L 97.6 F L 97 F L Temperature Source Temporal Temporal Temporal Pulse Rate 107 H 107 H 86 Respiratory Rate 16 16 17 Blood Pressure 121/76 H 121/76 H 107/70 Blood Pressure Mean 91 91 82 Pulse Ox 98 98 97 Oxygen Delivery Method Room Air Room Air Room Air Positive well nourished and well developed General Appearance ED: well developed <Dr. Ted Krishnamurthy MD - Last Filed: 01/26/24 22:01> Physical Exam Const Vital Signs: 01/26/24 15:14 01/26/24 15:16 01/26/24 16:46 Temperature 97.6 F L 97.6 F L 97 F L Temperature Source Temporal Temporal Temporal Pulse Rate 107 H 107 H 86 Respiratory Rate 16 16 17 Blood Pressure 121/76 H 121/76 H 107/70 Blood Pressure Mean 91 91 82 Pulse Ox 98 98 97 Oxygen Delivery Method Room Air Room Air Room Air MDM <PADMINI Mcdonough - Last Filed: 01/26/24 18:28> MDM Lab Data Labs: Laboratory Results - last 24 hr 01/26/24 01/26/24 15:53 16:00 WBC 13.6 H RBC 4.75 Hgb 15.0 Hct 45.6 MCV 96.0 MCH 31.6 MCHC 32.9 RDW Std Deviation 43.9 RDW Coeff of Marisel 12.4 Plt Count 295 MPV 12.1 H Immature Gran % (Auto) 0.600 Neut % (Auto) 74.1 H Lymph % (Auto) 15.0 L Lucas % (Auto) 7.6 Eos % (Auto) 2.0 Baso % (Auto) 0.7 Absolute Neuts (auto) 10.1 H Absolute Lymphs (auto) 2.04 Nucleated RBC % 0 Sodium 139 Potassium 3.9 Chloride 109 H Carbon Dioxide 24.0 Anion Gap 6 BUN 21 H Creatinine 0.94 Estim Creat Clear Calc 76.06 Est GFR (MDRD) Af Amer 81 Est GFR (MDRD) Non-Af 67 BUN/Creatinine Ratio 22.3 H Glucose 89 Calcium 9.8 Total Bilirubin 0.80 AST 15 ALT 18 Alkaline Phosphatase 112 Total Protein 7.9 Albumin 3.9 Globulin 4.0 Albumin/Globulin Ratio 1.0 Lipase 32 Urine Color Yellow Urine Clarity Sl. Cloudy Urine pH 5.0 Ur Specific [place] 1.030 Urine Protein 30 H Urine Glucose (UA) Normal Urine Ketones 150 A* Urine Occult Blood 10 H Urine Nitrite Negative Urine Bilirubin 1 H Urine Urobilinogen 4 H Ur Leukocyte Esterase 25 H Urine RBC 0 SEEN Urine WBC 0 SEEN Ur Squamous Epith Cells 10-25 SEEN Urine Bacteria 0 SEEN Urine Mucus 1+ Treatment and Re-Evaluation :: Differential diagnosis includes however is not limited to: Achalasia acute on chronic, cholecystitis, dehydration, trichomonas, gonorrhea, bacterial vaginosis, UTI, vaginal yeast infection Patient appears to be in no obvious distress vital signs are stable, patient appears nontoxic. Presenting to the emergency department with complaints of nausea, vomiting which is acute on chronic as well as vaginal discharge and odor. Patient did receive a pelvic exam with female nurse freight car inspector. GC/chlamydia will be sent, as well as wet prep and trichomonas. Patient will receive some basic laboratory values to ensure there is no electrode abnormality, leukocytosis, anemia, renal sufficiency. IV fluids, Zofran will be ordered. All radiologic examinations were read, reviewed by the emergency de partment attending. From these reads, a plan of care will be put in place. Patient's trichomonas, GC/chlamydia were negative. Patient's laboratory values show slight leukocytosis with a white blood count of 13.6, looking the patient's past labs over the last year this is kind of baseline. Patient's CBC remainder was negative, chemistries were unremarkable. Lipase was negative no transaminitis. On reevaluation, patient was feeling much better. Patient was given Toradol for headache. Secondary to the patient's vaginal discharge, odor, patient placed on 1 week of Flagyl secondary to bacterial vaginosis. She will be able to crush the pills and take them orally. All questions were answered, patient struck to return for any worsening symptoms. <Dr. Ted Krishnamurthy MD - Last Filed: 01/26/24 22:01> [facility] MDM Narrative Medical decision making narrative: I have personally performed a face to face assessment of the patient and have reviewed the WIL Note. I performed a substantive portion of the visit including all aspects of the following. My monte findings include: History is vomiting in addition to foul-smelling thin homogenous irritated vaginal discharge. No fevers or chills. No abdominal pain. No hematemesis. Exam is abdomen soft nontender nondistended. Patient well-appearing no distress. Mild tachycardia at rest. Medical Decison Making labs show mild dehydration and mild leukocytosis which is nonspecific. She was given IV fluids, nausea medication she feels much better is tolerating oral fluids. Pelvic exam per ARCHITECTURAL RENDERER will treat for bacterial vaginosis advised outpatient follow-up. Vital signs normalized after IV fluids. Other additions or changes: [None] Lab Data Labs: Laboratory Results - last 24 hr 01/26/24 01/26/24 15:53 16:00 WBC 13.6 H RBC 4.75 Hgb 15.0 Hct 45.6 MCV 96.0 MCH 31.6 MCHC 32.9 RDW Std Deviation 43.9 RDW Coeff of Marisel 12.4 Plt Count 295 MPV 12.1 H Immature Gran % (Auto) 0.600 Neut % (Auto) 74.1 H Lymph % (Auto) 15.0 L Lucas % (Auto) 7.6 Eos % (Auto) 2.0 Baso % (Auto) 0.7 Absolute Neuts (auto) 10.1 H Absolute Lymphs (auto) 2.04 Nucleated RBC % 0 Sodium 139 Potassium 3.9 Chloride 109 H Carbon Dioxide 24.0 Anion Gap 6 BUN 21 H Creatinine 0.94 Estim Creat Clear Calc 76.06 Est GFR (MDRD) Af Amer 81 Est GFR (MDRD) Non-Af 67 BUN/Creatinine Ratio 22.3 H Glucose 89 Calcium 9.8 Total Bilirubin 0.80 AST 15 ALT 18 Alkaline Phosphatase 112 Total Protein 7.9 Albumin 3.9 Globulin 4.0 Albumin/Globulin Ratio 1.0 Lipase 32 Urine Color Yellow Urine Clarity Sl. Cloudy Urine pH 5.0 Ur Specific [place] 1.030 Urine Protein 30 H Urine Glucose (UA) Normal Urine Ketones 150 A* Urine Occult Blood 10 H Urine Nitrite Negative Urine Bilirubin 1 H Urine Urobilinogen 4 H Ur Leukocyte Esterase 25 H Urine RBC 0 SEEN Urine WBC 0 SEEN Ur Squamous Epith Cells 10-25 SEEN Urine Bacteria 0 SEEN Urine Mucus 1+ Discharge Plan Triage Chief Complaint: Nausea/Vomiting ED Midlevel Provider: Pete Rosenbaum ED Provider: Ted Krishnamurthy Dx/Rx/DC Orders Clinical Impression: Nausea & vomiting, Achalasia, Bacterial vaginosis Instructions: Anatomy of the Digestive System, Bacterial Vaginosis Prescriptions: New ondansetron 4 mg tablet,disintegrating 4 mg PO Q8H PRN PRN (Reason: Nausea) Qty: 10 0RF metronidazole 500 mg tablet 500 mg PO BID 7 Days Qty: 14 0RF No Action famotidine 40 mg/5 mL (8 mg/mL) suspension 20 mg PO DAILY Qty: 50 0RF ondansetron 4 mg tablet,disintegrating 4 mg PO Q6H PRN (Reason: nausea and vomiting) Qty: 20 0RF Taltz Autoinjector 80 mg/mL auto-injector 80 mg subcut Q4W Patient Comments: Now taking this instead of Cosentyx Primary Care Provider: Perri Dunlap Referrals: Perri Dunlap MD [Primary Care Provider] - Activity Restrictions/Additional Instructions: Refrain from sex until symptoms have ended Print Language: Amharic Disposition Disposition: Home, Self Care Discharge Date/Time: 01/26/24 18:40
[2024-01-26] MEDS: 0.9% Normal Saline (1000mL) 1,000 ML 999 ML IV (16:44)
[2024-01-26 16:45] LABS: AST(SGOT) 15 U/L (15-37); Alanine Aminotransfer ALT/SGPT 18 U/L (13-56); Albumin, Serum 3.9 g/dL (3.2-5.0); Alkaline Phosphatase 112 U/L (45-117); Anion Gap 6 (5-15); BUN 21 mg/dL (7-18); BUN/Creat Ratio 22.3 RATIO (10-20); Calcium,Total 9.8 mg/dL (8.5-10.1); Chloride 109 mmol/L (98-107); Creatinine, Serum 0.94 mg/dL (0.55-1.02); EST Glomerular Filtration Rate 67 mL/min (>60); Est Glom Filt Rate - Afr Amer 81 mL/min (>60); Estimated Creatinine Clearance 76.06 ml/min; Glucose 89 mg/dL (74-106); Lipase 32 U/L (13-75); Potassium 3.9 mmol/L (3.5-5.1); Protein, Total 7.9 g/dL (6.4-8.2); Sodium Level 139 mmol/L (136-145)
[2024-01-26] MEDS: Ondansetron 4 MG/2 ML Vial IV (16:45)
[2024-01-26 16:46] VITALS: BP 107/70; PULSE 86; RESP 17; TEMP 36.1; O2SAT 97
[2024-01-26 17:01] LABS: Bacteria 0 SEEN /hpf (None Seen); Red Blood Cells-Urine 0 SEEN /hpf (0-5); White Blood Cells 0 SEEN /hpf (0-5)
[2024-01-26 17:06] LABS: Color, Urine Yellow (Yellow); Glucose, Dipstick Normal (Normal); Leukocyte Esterase-Dipstick 25 /ul (Negative); Nitrite-Dipstick Negative (Negative); Occult Blood-Urine 10 /ul (Negative); Protein-Dipstick 30 mg/dl (Negative); Urine Clarity Sl. Cloudy (Clear); Urine Urobilinogen 4 mg/dl (Normal)
[2024-01-26 17:12] LABS: Urine Bilirubin Dipstick 1 mg/dL (Negative)
[2024-01-26 17:13] LABS: Ketone-Dipstick 150 mg/dl (Negative)
[2024-01-26 17:15] LABS: Squamous Epithelial Cells - UA 10-25 SEEN /hpf (5-10)
[2024-01-26 17:16] LABS: Mucous, Urine 1+ /hpf (<or=2+)
[2024-01-26] MEDS: Ketorolac 15 MG/ML Vial IV (18:06)
[2024-01-26] MEDS: metroNIDAZOLE 500 MG Tablet PO (18:39)
== END 2024-01-26 18:40 | disposition home or self-care (01) ==
PROVIDERS: Nurse Practitioner; Emergency Provider Emergency Medicine; PCP Internal Medicine; Visit Provider Emergency Medicine
DX: R11.2 Nausea with vomiting, unspecified (principal); N76.0 Acute vaginitis; K22.0 Achalasia of cardia; E86.0 Dehydration; B96.89 Other specified bacterial agents as the cause of diseases classified elsewhere; Z90.710 Acquired absence of both cervix and uterus; Z90.49 Acquired absence of other specified parts of digestive tract; F17.200 Nicotine dependence, unspecified, uncomplicated
CPT/HCPCS: 80053; 81001; 83690; 85025; 87210; 87491; 87591; 96361; 96374; 96375; 99284; J7030; A4216; J2405

== ENCOUNTER 2024-01-29 14:29 | Emergency (ER) | payer MEDICAID, SELFPAY ==
[2024-01-29 14:29] VITALS: BP 114/83; PULSE 76; RESP 15; TEMP 36.4; O2SAT 98; BMI 32.5
--- NOTE | 2024-01-29 16:13 | EDS_ITS ---
HPI History of Present Illness Chief Complaint: Nausea/Vomiting Narrative Narrative: This is a 48-year-old female with a history of achalasia who presents to the emergency department for persistent nausea and vomiting at home. Patient is not having abdominal pain, but she states whenever she tries to drink anything, water or tea she immediately vomits back up the fluids. She is tolerating her oral secretions. She feels dehydrated with headache, dizziness and lightheadedness. No syncopal episodes. The patient states that she is being treated with Flagyl for bacterial vaginosis, but has not been able to take this antibiotic as she is not able to swallow. She states that she is followed by a cardiothoracic surgeon in [place] for her severe achalasia. She has had yeast infections of the esophagus before preventing proper swallowing and increased reflux and vomiting. She has noticed a white plaque on her tongue. No diarrhea or constipation. No urinary symptoms. No back or flank pain. No chest pain or shortness of breath. [facility] Medical History Achalasia Anxiety and depression Arthritis Environmental allergies Gallstones Migraines Post-menopausal Psoriasis Smoker Vitamin deficiency Wears glasses Home Medications ?Medication ?Instructions ?Recorded ?Last Taken ?Type ixekizumab 80 mg/mL subcutaneous 80 mg subcut Q4W PSORIASIS 06/14/22 Unknown History auto-injector (Taltz Autoinjector) famotidine 40 mg/5 mL (8 mg/mL) 20 mg (2.5 mL) PO DAILY #50 mL 03/08/23 Unknown Rx oral suspension ondansetron 4 mg disintegrating 4 mg PO Q6H PRN nausea and 06/17/23 Unknown Rx tablet vomiting #20 tabs metronidazole 500 mg tablet 500 mg PO BID 7 days #14 tabs 01/26/24 Unknown Rx ondansetron 4 mg disintegrating 4 mg PO Q8H PRN PRN Nausea #10 tabs 01/26/24 Unknown Rx tablet metronidazole 0.75 % (37.5 mg/5 1 appful vaginal QHS 5 days #70 01/29/24 Unknown Rx gram) vaginal gel grams nystatin 100,000 unit/mL oral 5 ml PO 4X/DAY #100 mL 01/29/24 Unknown Rx suspension ondansetron 4 mg disintegrating 4 mg PO Q8H PRN PRN Nausea #10 tabs 01/29/24 Unknown Rx tablet Allergy/AdvReac Type Severity Reaction Status Date / Time cat dander Allergy Intermediate Swelling Verified 01/29/24 14:31 cephalexin Allergy Hives Verified 01/29/24 14:31 Sulfa (Sulfonamide Allergy Hives Verified 01/29/24 14:31 Antibiotics) Family History Mother Breast cancer COPD (chronic obstructive pulmonary disease) Sister Breast cancer Brother Hypertension Diabetes Grandmother Diabetes Surgical History History of hysterectomy History of surgical procedure Hx of cholecystectomy Hx of laparoscopy Social History household members: family current occupational status: employed 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 Smoking Status: Light Smoker (<10/day) Electronic Cigarette Use: not used alcohol intake: current alcohol intake frequency: holidays/special occasions only substance use type: does not use do you feel safe at home: Yes ROS ROS ED Constitutional Constitutional ED: Denies chills or fever(s) Eyes Eyes: Denies blurry vision ENT ENT ED: Denies rhinorrhea or sore throat Cardiovascular Cardiovascular: Denies chest pain Respiratory/Chest Respiratory/Chest: Denies cough or dyspnea Gastrointestinal Gastrointestinal: Reports constipation, nausea and vomiting; Denies abdominal pain or diarrhea Genitourinary Genitourinary ED: Denies dysuria or urinary frequency Musculoskeletal Musculoskeletal: Reports neck pain; Denies back pain Integumentary Denies rash Neurologic Neurologic: Reports headache(s) Endocrine Endocrinology: Denies polyuria EXAM Physical Exam Const Vital Signs: 01/29/24 14:29 01/29/24 16:29 01/29/24 19:26 Temperature 97.6 F L 98.2 F Temperature Source Temporal Pulse Rate 76 87 82 Respiratory Rate 15 18 18 Blood Pressure 114/83 H 109/63 91/68 Blood Pressure Mean 93 78 75 Pulse Ox 98 99 96 Oxygen Delivery Method Room Air Room Air Positive well nourished, well developed and oriented x3 General Appearance ED: active, cooperative and well developed Orientation / Consciousness: awake and oriented to person Exam Limitations: no limitations HEENT Reports normocephalic, head/scalp atraumatic, TM's clear, nasal mucous membranes and turbinates normal and oropharynx normal HEENT Narrative: Mildly dry mucous membranes with white plaque on the tongue. normocephalic, normal to inspection and atraumatic Face and Sinus: normal facial exam Nose: external nose normal and nares normal External Ear: external ears normal Tympanic Membrane ED: Yes TM's clear Mouth ED: Yes oral and palatal mucosa normal, Yes lips normal and Yes tongue normal Mouth: oral and palatal mucosa normal, lips normal and tongue normal Throat: posterior oropharynx normal Eyes PERRL, EOMs intact bilaterally and conjunctivae normal General Eye ED: Yes normal appearance of both eyes Visual Acuity: acuity normal Eyelid: eyelids normal Conjunctiva: conjunctiva normal Sclera: sclera normal Cornea: cornea normal Pupil: PERRL and accommodation reflex normal EOM: EOM abnormal Neck full ROM Lymph Lymphatic: no lymphadenopathy noted Chest Wall inspection of chest normal Chest: abnormal inspection of the chest Resp normal respiratory effort and normal air movement Effort and Inspection: able to speak in complete sentences and symmetric chest movement Auscultation: clear to auscultation bilaterally Cardio regular rate and regular rhythm Rate: regular rate Peripheral Pulses: pulses 2+ throughout GI normal to inspection, nondistended, normoactive bowel sounds Rectal Exam: deferred no CVA tenderness Back/Spine normal ROM and normal to inspection Cervical Spine: cervical ROM normal Extremity normal to inspection, full ROM and normal capillary refill Neuro oriented x3, CN's II-XII intact bilaterally, moves all extremities and no focal motor deficits Sensorium / Orientation: awake and alert Motor Exam: strength 5/5 throughout Psych mental status grossly normal Appearance: grossly normal and appropriate Speech: normal speech Skin no rashes or lesions noted MDM MDM MDM Narrative Medical decision making narrative: Patient presents to the emergency department for persistent nausea and vomiting every time she tries to drink liquids. She thinks this is secondary to her achalasia. She is not having any abdominal pain. She is tolerating her secretions well. The patient has not eaten any solid food that would cause any type of esophageal food bolus or obstruction. The patient has no cardiac signs or symptoms with any chest pain or shortness of breath. The patient states that she has had fungal infections of the esophagus in the past causing similar symptoms. Patient was treated symptomatically in the emergency department with antiemetics and IV fluids given that she has not been able to tolerate oral hydration at home. I did obtain lab work to rule out any severe dehydration and other than a slight leukocytosis with corresponding hemoconcentration, likely more from the dehydration CBC within normal limits. No significant electrolyte abnormalities or renal insufficiency on BMP suggesting any severe dehydration either. The patient was feeling better after IV fluids. She was still having a headache and was given 1 dose of IV analgesia in the emergency department. She is comfortable going home with a prescription for nystatin to swish and swallow, which she has used in the past for similar situation and will continue using Zofran for any nausea and continue with oral hydration as tolerated. Additionally, she was unable to tolerate the oral metronidazole given her nausea and vomiting for her bacterial vaginosis. I will prescribe gel form of the metr onidazole to be placed vaginally for the next 5 days. Patient will continue with the plan for nystatin oral swish and swallow and ondansetron with oral hydration. If she is unable to tolerate this she will follow-up with either her PCP or her cardiothoracic surgeon in [place]. Return precautions discussed and all questions answered. Patient agreeable with this discharge plan. Lab Data Attestation: I reviewed the patient's lab results. Labs: Laboratory Results - last 24 hr 01/29/24 16:50 WBC 13.2 H RBC 5.17 Hgb 16.3 H Hct 49.1 H MCV 95.0 MCH 31.5 MCHC 33.2 RDW Std Deviation 42.1 RDW Coeff of Marisel 12.1 Plt Count 321 MPV 11.9 Immature Gran % (Auto) 0.500 Neut % (Auto) 71.7 H Lymph % (Auto) 17.2 L [place] % (Auto) 8.3 Eos % (Auto) 1.4 Baso % (Auto) 0.9 Absolute Neuts (auto) 9.5 H Absolute Lymphs (auto) 2.27 Nucleated RBC % 0 Sodium 140 Potassium 3.8 Chloride 107 Carbon Dioxide 23.0 Anion Gap 10 BUN 24 H Creatinine 1.08 H Estim Creat Clear Calc 66.20 Est GFR (MDRD) Af Amer 69 Est GFR (MDRD) Non-Af 57 L BUN/Creatinine Ratio 22.2 H Glucose 90 Calcium 10.0 Total Bilirubin 0.60 AST 13 L ALT 16 Alkaline Phosphatase 113 Total Protein 8.2 Albumin 4.1 Globulin 4.1 Albumin/Globulin Ratio 1.0 Discharge Plan Triage Chief Complaint: Nausea/Vomiting ED Provider: Mely Glover Dx/Rx/DC Orders Clinical Impression: Nausea & vomiting, Bacterial vaginosis, Achalasia, Dehydration Instructions: ED Vomiting (Adult) Prescriptions: New ondansetron 4 mg tablet,disintegrating 4 mg PO Q8H PRN PRN (Reason: Nausea) Qty: 10 0RF nystatin 100,000 unit/mL suspension 5 ml PO 4X/DAY Qty: 100 0RF Rx Instructions: Put 5 mL in the mouth twice daily. Swish and swallow. metronidazole 0.75 % (37.5mg/5 gram) gel 1 appful vaginal QHS 5 Days Qty: 70 0RF No Action famotidine 40 mg/5 mL (8 mg/mL) suspension 20 mg PO DAILY Qty: 50 0RF ondansetron 4 mg tablet,disintegrating 4 mg PO Q6H PRN (Reason: nausea and vomiting) Qty: 20 0RF ondansetron 4 mg tablet,disintegrating 4 mg PO Q8H PRN PRN (Reason: Nausea) Qty: 10 0RF metronidazole 500 mg tablet 500 mg PO BID 7 Days Qty: 14 0RF Taltz Autoinjector 80 mg/mL auto-injector 80 mg subcut Q4W Patient Comments: Now taking this instead of Cosentyx Primary Care Provider: Perri Dunlap Referrals: Perri Dunlap MD [Primary Care Provider] - Print Language: Turkmen Disposition Disposition: Home, Self Care
[2024-01-29 16:29] VITALS: BP 109/63; PULSE 87; RESP 18; O2SAT 99
[2024-01-29] MEDS: 0.9% Normal Saline (1000mL) 1,000 ML 999 ML IV (16:49)
[2024-01-29 16:55] LABS: Absolute Lymphocyte Count 2.27 X10^3/uL (0.83-4.51); Absolute Neutrophil Count 9.5 X10^3/uL (2.0-7.7); Basophil# 0.12 X10^3/uL; Basophil% 0.9 % (0-1); Eosinophil# 0.19 X10^3/uL; Eosinophils% 1.4 % (0-5); Hematocrit 49.1 % (37-47); Hemoglobin 16.3 g/dL (12.0-15.0); Lymphocyte # 2.27 X10^3/ul (0.83-4.51); Lymphocyte % 17.2 % (19-41); Mean Corp Hgb Conc 33.2 g/dL (32-36); Mean Corpuscular Hgb 31.5 pg (27.0-32.0); Mean Platelet Vol. 11.9 fl (6.2-12.0); Monocyte# 1.09 X10^3/uL; Monocyte% 8.3 % (0-10); NRBC Flagged by Analyzer 0 % (0-5); Neutrophil # 9.47 X10^3/uL (2.7-7.7); Neutrophil % 71.7 % (47-70); Platelet Count 321 K/mm3 (150-450); RBC Distribution Width CV 12.1 % (11.6-14.6); RBC Distribution Width SD 42.1 fl (35.1-43.9); Red Blood Count 5.17 M/mm3 (4.2-5.4); White Blood Count 13.2 K/mm3 (4.4-11.0)
[2024-01-29 17:12] LABS: AST(SGOT) 13 U/L (15-37); Alanine Aminotransfer ALT/SGPT 16 U/L (13-56); Albumin, Serum 4.1 g/dL (3.2-5.0); Alkaline Phosphatase 113 U/L (45-117); Anion Gap 10 (5-15); BUN 24 mg/dL (7-18); BUN/Creat Ratio 22.2 RATIO (10-20); Chloride 107 mmol/L (98-107); Creatinine, Serum 1.08 mg/dL (0.55-1.02); EST Glomerular Filtration Rate 57 mL/min (>60); Est Glom Filt Rate - Afr Amer 69 mL/min (>60); Globulin 4.1 g/dL (2.2-4.2); Glucose 90 mg/dL (74-106); Potassium 3.8 mmol/L (3.5-5.1); Protein, Total 8.2 g/dL (6.4-8.2); Sodium Level 140 mmol/L (136-145)
[2024-01-29] MEDS: Morphine 4 MG/ML Syringe IV (18:44)
[2024-01-29 19:26] VITALS: BP 91/68; PULSE 82; RESP 18; TEMP 36.8; O2SAT 96
== END 2024-01-29 19:30 | disposition home or self-care (01) ==
PROVIDERS: Emergency Provider Emergency Medicine; PCP Internal Medicine; Visit Provider Emergency Medicine
DX: R11.2 Nausea with vomiting, unspecified (principal); E86.0 Dehydration; N76.0 Acute vaginitis; F17.200 Nicotine dependence, unspecified, uncomplicated; K22.0 Achalasia of cardia; Z90.710 Acquired absence of both cervix and uterus; Z90.49 Acquired absence of other specified parts of digestive tract
CPT/HCPCS: 80053; 85025; 96360; 96361; 99282; A4216

== ENCOUNTER 2024-02-10 20:03 | Emergency (ER) | payer MEDICAID, SELFPAY ==
[2024-02-10 20:04] VITALS: BP 118/69; PULSE 86; RESP 15; TEMP 36.4; O2SAT 98; BMI 32.5
--- NOTE | 2024-02-10 20:29 | EX.ED.DYSGE1 ---
HPI History of Present Illness Chief Complaint: Rash Detail of Chief Complaint: Patient presents because of rash on her back that itched initially now pain Informant: patient Onset/Context/Timing Onset: Days (3+ days ago) Context: Sudden Onset Timing: Continuous Quality: Erythematous painful slightly raised rash Location: L5-S1 dermatome on the left Current Severity: Moderate Maximum Severity: Severe Worsened by: Light touch Relieved by: Nothing Associated Symptoms Associated Symptoms: No other symptoms Narrative Narrative: Patient is a 48-year-old woman who presents with a painful red rash that has slight itch. The rash is noted on her back and lower abdomen left side. She denies headache, photophobia ear pain. She denies any other symptoms Prior similar symptoms: No Recent Illness/Hospitalization: No PFSH PFSH Medical History Anxiety and depression Wears glasses Post-menopausal Achalasia Smoker Psoriasis Vitamin deficiency Migraines Gallstones Arthritis Environmental allergies Home Medications ?Medication ?Instructions ?Recorded ?Last Taken ?Type ixekizumab 80 mg/mL subcutaneous 80 mg subcut Q4W PSORIASIS 06/14/22 Unknown History auto-injector ([email or web address] Autoinjector) famotidine 40 mg/5 mL (8 mg/mL) 20 mg (2.5 mL) PO DAILY #50 mL 03/08/23 Unknown Rx oral suspension ondansetron 4 mg disintegrating 4 mg PO Q6H PRN nausea and 06/17/23 Unknown Rx tablet vomiting #20 tabs metronidazole 500 mg tablet 500 mg PO BID 7 days #14 tabs 01/26/24 Unknown Rx ondansetron 4 mg disintegrating 4 mg PO Q8H PRN PRN Nausea #10 tabs 01/26/24 Unknown Rx tablet metronidazole 0.75 % (37.5 mg/5 1 appful vaginal QHS 5 days #70 01/29/24 Unknown Rx gram) vaginal gel grams nystatin 100,000 unit/mL oral 5 ml PO 4X/DAY #100 mL 01/29/24 Unknown Rx suspension ondansetron 4 mg disintegrating 4 mg PO Q8H PRN PRN Nausea #10 tabs 01/29/24 Unknown Rx tablet gabapentin 300 mg capsule 300 mg PO BID #90 caps 02/10/24 Unknown Rx Allergy/AdvReac Type Severity Reaction Status Date / Time cat dander Allergy Intermediate Swelling Verified 01/29/24 14:31 cephalexin Allergy Hives Verified 01/29/24 14:31 Sulfa (Sulfonamide Allergy Hives Verified 01/29/24 14:31 Antibiotics) Family History Mother Breast cancer COPD (chronic obstructive pulmonary disease) Sister Breast cancer Brother Hypertension Diabetes Grandmother Diabetes Surgical History History of surgical procedure Hx of laparoscopy History of hysterectomy Hx of cholecystectomy Social History household members: family current occupational status: employed current occupation: works as an [employer]ODUCTION [employer]OL [employer] Smoking Status: Light Smoker (<10/day) Electronic Cigarette Use: not used alcohol intake: current alcohol intake frequency: holidays/special occasions only substance use type: does not use do you feel safe at home: Yes ROS ROS ED Constitutional Constitutional ED: Denies chills, fever(s), subjective, sweats or weight loss Eyes Eyes: Denies blurry vision or change in vision ENT ENT ED: Denies ear pain or rhinorrhea Cardiovascular Cardiovascular: Denies chest pain or palpitations Respiratory/Chest Respiratory/Chest: Denies cough or dyspnea Gastrointestinal Gastrointestinal: Reports abdominal pain; Denies nausea or vomiting Musculoskeletal Musculoskeletal: Reports back pain; Denies arthralgias or myalgias Integumentary Reports rash Neurologic Neurologic: Denies headache(s), paresthesias or weakness Hematologic/Lymphatic Hematologic/Lymphatic: Reports systems reviewed and no addt'l complaints, except as documented EXAM Physical Exam Const Vital Signs: 02/10/24 20:04 Temperature 97.5 F L Temperature Source Temporal Pulse Rate 86 Respiratory Rate 15 Blood Pressure 118/69 Blood Pressure Mean 85 Pulse Ox 98 Oxygen Delivery Method Room Air Positive well nourished and well developed General Appearance ED: well developed and NAD; Negative for cyanotic or diaphoretic HEENT Reports moist mucous membranes HEENT Narrative: Head is atraumatic normocephalic. Ears normal. Nares patent. Eyes PERRL and EOMs intact bilaterally General Eye ED: Negative for pale conjunctiva or scleral icterus Resp normal respiratory effort Cardio regular rate and regular rhythm GI GI Narrative: Abdomen is remarkable for rash otherwise negative Extremity normal to inspection Neuro oriented x3 and CN's II-XII intact bilaterally Sensorium / Orientation: alert Psych mental status grossly normal Skin Skin Narrative: Rash consistent with shingles. MDM MDM MDM Narrative Medical decision making narrative: Patient has herpes varicella-zoster. Since symptoms started 3+ days ago antivirals are not indicated. She was placed on gabapentin for her pain. Since patient is in a dermatomal distribution this represents herpes varicella-zoster. This is not hives since it is raised and initially was itching. Discharge Plan Triage Chief Complaint: Rash ED Provider: Jeff Wilson Dx/Rx/DC Orders Clinical Impression: VZV (varicella-zoster virus) infection, Achalasia, Prediabetes Instructions: ED Shingles (Herpes Zoster) Prescriptions: New gabapentin 300 mg capsule 300 mg PO BID Qty: 90 0RF Rx Instructions: Twice daily for 3 days then increase to 3 times daily No Action famotidine 40 mg/5 mL (8 mg/mL) suspension 20 mg PO DAILY Qty: 50 0RF ondansetron 4 mg tablet,disintegrating 4 mg PO Q6H PRN (Reason: nausea and vomiting) Qty: 20 0RF ondansetron 4 mg tablet,disintegrating 4 mg PO Q8H PRN PRN (Reason: Nausea) Qty: 10 0RF metronidazole 500 mg tablet 500 mg PO BID 7 Days Qty: 14 0RF ondansetron 4 mg tablet,disintegrating 4 mg PO Q8H PRN PRN (Reason: Nausea) Qty: 10 0RF nystatin 100,000 unit/mL suspension 5 ml PO 4X/DAY Qty: 100 0RF Rx Instructions: Put 5 mL in the mouth twice daily. Swish and swallow. metronidazole 0.75 % (37.5mg/5 gram) gel 1 appful vaginal QHS 5 Days Qty: 70 0RF Taltz Autoinjector 80 mg/mL auto-injector 80 mg subcut Q4W Patient Comments: Now taking this instead of Cosentyx Primary Care Provider: Perri Dunlap Referrals: Perri Dunlap MD [Primary Care Provider] - 1 Week if not improving Print Language: Portuguese Disposition Disposition: Home, Self Care
[2024-02-10] MEDS: Gabapentin 300 MG Capsule PO (20:53)
== END 2024-02-10 20:55 | disposition home or self-care (01) ==
LOC: ED 20:45
PROVIDERS: Emergency Provider Emergency Medicine; PCP Internal Medicine; Visit Provider Emergency Medicine
DX: B02.9 Zoster without complications (principal); K22.0 Achalasia of cardia; R73.03 Prediabetes; F17.200 Nicotine dependence, unspecified, uncomplicated; Z90.710 Acquired absence of both cervix and uterus; Z90.49 Acquired absence of other specified parts of digestive tract
CPT/HCPCS: 99282

== ENCOUNTER → 2024-07-13 | Outpatient (CLI) | payer MEDICAID, SELFPAY ==
[2024-07-17 12:09] LABS: QNTFERON TB Mitogen Value > 10.00 IU/mL (.); QNTFERON TB Nil Value 0 IU/mL (.); QNTFERON TB1+ Ag Value 0 IU/mL (.); QNTFERON TB2+ Ag Value 0.02 IU/mL (.); QNTIFERON TB Positive Criteria Negative (Negative)
== END | disposition home or self-care (01) ==
LOC: MTLAB 14:15
PROVIDERS: PCP Internal Medicine; Referring Provider Physician Assistant; Visit Provider Physician Assistant
DX: L40.0 Psoriasis vulgaris (principal); Z79.899 Other long term (current) drug therapy
CPT/HCPCS: 36415; 86480

== ENCOUNTER 2025-05-29 10:07 | Emergency (ER) | payer MEDICAID, SELFPAY ==
[2025-05-29 10:09] VITALS: BP 119/52; PULSE 94; RESP 16; TEMP 36.1; O2SAT 100; BMI 35.4
--- NOTE | 2025-05-29 10:41 | RAD_ITS ---
PROCEDURE: KNEE 4 OR MORE VIEWS 05/29/2025 REASON FOR EXAM: PAIN, FALL TECHNIQUE: Procedure Code: RADKN Modality: DX Procedure: KNEE 4 OR MORE VIEWS Four views of the left knee COMPARISON: None FINDINGS: There is moderate tricompartment osteoarthritis, most severe in the medial compartment. Osteophyte formation is noted at all articular surfaces. There is no acute fracture or dislocation identified. Mineralization is normal. There is no visible atherosclerosis. RAD/Knee 4 or More Views IMPRESSION: There is moderate tricompartment osteoarthritis, most severe in the medial comp artment. Osteophyte formation is noted at all articular surfaces. Reading Location: [facility]
--- NOTE | 2025-05-29 10:42 | EDS_ITS ---
HPI History of Present Illness Chief Complaint: Lower Extremity Injury Narrative Narrative: Patient is a 49-year-old female presenting to the emergency department for left knee pain after a fall. Patient has a past medical history of prediabetes, achalasia, obesity, arthritis. Patient states that yesterday she was wearing slides and then it started to rain. States she was going up the steps into her son's house when there was some mud from the rain that she slipped and causing her to fall and land on her right knee. She denies hitting her head or any loss of consciousness. Denies any neck or back pain. Denies any other injuries. States that she thinks she twisted her left knee which is now causing her pain. States that her right knee does not hurt. She has not taken anything for pain. She has been able to ambulate on it. [facility] Medical History Anxiety and depression Wears glasses Post-menopausal Achalasia Smoker Psoriasis Vitamin deficiency Migraines Gallstones Arthritis Environmental allergies Home Medications ?Medication ?Instructions ?Recorded ?Last Taken ?Type ixekizumab 80 mg/mL subcutaneous 80 mg subcut Q4W PSOR IASIS 06/14/22 Unknown History auto-injector (Taltz Autoinjector) famotidine 40 mg/5 mL (8 mg/mL) 20 mg (2.5 mL) PO IOANA Y #50 mL 03/08/23 Unknown Rx oral suspension ondansetron 4 mg disintegrating 4 mg PO Q6H PRN nausea and 06/17/23 Unknown Rx tablet vomiting #20 tabs metronidazole 500 mg tablet 500 mg PO BID 7 days #14 t abs 01/26/24 Unknown Rx ondansetron 4 mg disintegrating 4 mg PO Q8H PRN PRN Na usea #10 tabs 01/26/24 Unknown Rx tablet metronidazole 0.75 % (37.5 mg/5 1 appful vaginal QHS 5 days #70 01/29/24 Unknown Rx gram) vaginal gel grams nystatin 100,000 unit/mL oral 5 ml PO 4X/DAY #100 mL 0 01/29/24 Unknown Rx suspension ondansetron 4 mg disintegrating 4 mg PO Q8H PRN PRN Na usea #10 tabs 01/29/24 Unknown Rx tablet gabapentin 300 mg capsule 300 mg PO BID #90 caps 02/09 Unknown Rx Allergy/AdvReac Type Severity Reaction Status Date / Time cat dander Allergy Intermediate Swelling Verified 05/29/25 10:08 cephalexin Allergy Hives Verified 05/29/25 10:08 Sulfa (Sulfonamide Allergy Hives Verified 05/29/25 10:08 Antibiotics) Family History Mother Breast cancer COPD (chronic obstructive pulmonary disease) Sister Breast cancer Brother Hypertension Diabetes Grandmother Diabetes Surgical History History of surgical procedure Hx of laparoscopy History of hysterectomy Hx of cholecystectomy Social History household members: family current occupational status: employed current occupation: works as an [employer] Smoking Status: Light Smoker (<10/day) Electronic Cigarette Use: not used alcohol intake: current alcohol intake frequency: holidays/special occasions only substance use type: does not use do you feel safe at home: Yes ROS ROS ED ROS Narrative see HPI EXAM Physical Exam Narrative Exam Narrative: Vital signs: Reviewed General: Alert and oriented x 3. No acute distress HEENT: Head is normocephalic and atraumatic, sinuses nontender, pupils equal round and reactive. Nares are patent. Oropharynx and throat exams normal. Neck: Supple without lymphadenopathy nontender Cardiovascular: Regular rate and rhythm, no murmurs. No rubs or gallops. Normal S1 and S2 Respiratory: Clear to auscultation bilaterally. No wheezes, rales, rhonchi Abdominal: Soft and nontender. Normal bowel sounds. No guarding or rebound. Nonsurgical abdomen Extremities: There is some very mild tenderness to palpation of the left anterior knee. There is no tenderness to palpation of the left hip, femur, tib- fib, ankle or foot. DP and PT pulses are intact bilaterally. Patient able to flex and extend at the knee without difficulty. There is no erythema, warmth, edema of the knee. Negative Gwendolyn test. Negative anterior and posterior drawer test. Normal sensation. Skin: No rash or redness. The rest of the physical exam is unremarkable Const Vital Signs: 05/29/25 10:09 Temperature 97 F L Temperature Source Temporal Pulse Rate 94 Respiratory Rate 16 Blood Pressure 119/52 L Blood Pressure Mean 74 Pulse Ox 100 MDM MDM MDM Narrative Medical decision making narrative: Patient is a 49-year-old female presenting to the emergency department for left knee pain. Patient was seen and examined. Vitals are stable. Patient resting in bed comfortably no acute distress. No obvious deformity to the knee. Patient given Toradol for pain control. X- ray of the knee ordered however I doubt any bony abnormality of the knee. Likely musculoskeletal in nature. No erythema, warmth or significant swelling and has normal active range of motion of the knee, do not suspect septic joint or gout. X-ray reviewed by myself, no fractures or dislocations noted. Radiology read with moderate tricompartment osteoarthritis, most severe in the medial compartment. Osteophyte formation is noted at all articular surfaces. Patient was updated on the negative xray findings. Hong wrap placed for comfort. Offered crutches to help with ambulation however patient states she does not need it. She ambulated without difficulty here. Educated on RICE instructions. Given orthopedic follow-up if she continues to have pain in 1 week. Patient discharged from the Emergency Department. I do not feel that the patient's evaluation reveals any acute reason for admission at this time. I instructed them to either follow-up with their primary care physician or promptly return to the Emergency Department for reevaluation should symptoms worsen or new symptoms develop. I explained what symptoms would indicate the need to return to the emergency department. Shared decision making was used. The patient voiced understanding of the treatment plan and is agreeable with it. Clinical impression Acute pain of left knee History & Record Review Discussion w/independent historian: Patient Radiography X-Ray: Read by ED Physician and No Fracture Diagnostic Testing: Clinical Impression(s) from Imaging Studies Knee X-Ray 05/29/25 10:41 IMPRESSION: There is moderate tricompartment osteoarthritis, most severe in the medial compartment. Osteophyte formation is noted at all articular surfaces. Reading Location: [facility] Discharge Plan Triage Chief Complaint: Lower Extremity Injury ED Provider: Sandra Fitzgerald Dx/Rx/DC Orders Clinical Impression: Acute pain of left knee Instructions: Knee Pain, ED Knee Sprain, ED RICE Prescriptions: No Action famotidine 40 mg/5 mL (8 mg/mL) suspension 20 mg PO DAILY Qty: 50 0RF ondansetron 4 mg tablet,disintegrating 4 mg PO Q6H PRN (Reason: nausea and vomiting) Qty: 20 0RF ondansetron 4 mg tablet,disintegrating 4 mg PO Q8H PRN PRN (Reason: Nausea) Qty: 10 0RF metronidazole 500 mg tablet 500 mg PO BID 7 Days Qty: 14 0RF gabapentin 300 mg capsule 300 mg PO BID Qty: 90 0RF Rx Instructions: Twice daily for 3 days then increase to 3 times daily ondansetron 4 mg tablet,disintegrating 4 mg PO Q8H PRN PRN (Reason: Nausea) Qty: 10 0RF nystatin 100,000 unit/mL suspension 5 ml PO 4X/DAY Qty: 100 0RF Rx Instructions: Put 5 mL in the mouth twice daily. Swish and swallow. metronidazole 0.75 % (37.5mg/5 gram) gel 1 appful vaginal QHS 5 Days Qty: 70 0RF Taltz Autoinjector 80 mg/mL auto-injector 80 mg subcut Q4W Patient Comments: Now taking this instead of Cosentyx Stand Alone Forms: ED Work / School Excuse Primary Care Provider: Sean Kirk Referrals: Perri Dunlap MD [Med Staff - Active Staff, Internal Medicine] - As soon as possible Sean Bunch MD [Med Staff - Active Staff, Orthopedics] - 1 Week if not improving Activity Restrictions/Additional Instructions: Use the RICE instructions for pain and swelling control. Apply the compression dressing to help with pain and swelling. If you are still having pain in 1 week you need to follow-up with the primary care doctor below or the orthopedic doctor provided for repeat imaging. Your evaluation in the Emergency Department did not reveal any acute reason for admission. However, I want to emphasize that you may be early in the course of a disease process or illness even if it is not present. For this reason you should follow-up within 24 hours for reevaluation with either your primary care physician or if necessary back here in the Emergency Department. You should return to the Emergency Department immediately if your symptoms worsen or new symptoms develop. Print Language: Croatian Disposition Disposition: Home, Self Care Discharge Date/Time: 05/29/25 11:57
[2025-05-29] MEDS: Ketorolac 30 MG/ML Syringe IM (11:02)
== END 2025-05-29 11:57 | disposition home or self-care (01) ==
PROVIDERS: Emergency Provider Student in an Organized Health Care Education/Training Program; Visit Provider Student in an Organized Health Care Education/Training Program
DX: M25.562 Pain in left knee (principal); F17.200 Nicotine dependence, unspecified, uncomplicated; Z90.710 Acquired absence of both cervix and uterus; W10.9XXA Fall (on) (from) unspecified stairs and steps, initial encounter; Y92.89 Other specified places as the place of occurrence of the external cause; Z90.49 Acquired absence of other specified parts of digestive tract
CPT/HCPCS: 73564; 96372; 99282